=== PATIENT | female | born 1945 | race Caucasian/White ===

== ENCOUNTER → 2018-06-21 | Outpatient (CLI) | payer MEDICARE ==
--- NOTE | 2018-06-23 17:45 | PE ---
Nuclear medicine PET/CT HISTORY: Melanoma, initial Patient received 13.1 mCi F-18 FDG intravenously in delayed scanning was performed through the whole body. No comparisons Neck and Chest: There is no suspicious hypermetabolic uptake. No evident adenopathy. No evident lung mass. No pleural or pericardial effusion. ABDOMEN: No evident liver mass or retroperitoneal adenopathy. Prominent extrarenal pelvis noted in th e right kidney, there may be UPJ obstruction. No suspicious hypermetabolic uptake. Uterus and adnexal structures are not seen. Osseous structures are are unremarkable, no suspicious hypermetabolic uptake. Sclerotic focus in the left sacral ala likely represents bone island. Hypertrophic change present at the sacroiliac joints, facet joints of the lower lumbar spine. Lower extremities are remarkable for knee prostheses, no suspicious hypermetabolic uptake to suggest metastatic disease. IMPRESSION: No suspicious hypermetabolic uptake is evident to suggest metastatic disease. Postop west ges.
== END | disposition home or self-care (01) ==
LOC: RADPETMAIN 10:54
PROVIDERS: ATTEND Nurse Practitioner
DX: C43.59 Malignant melanoma of other part of trunk (principal); Z98.890 Other specified postprocedural states
CPT/HCPCS: 78816; A9552

== ENCOUNTER → 2018-11-14 | Outpatient (CLI) | payer MEDICARE ==
--- NOTE | 2018-11-17 16:19 | PE ---
EXAMINATION TYPE: PET CT fusion whole body DATE OF EXAM: 11/14/2018 COMPARISON: Prior PET/CT June 21, 2018 HISTORY: Melanoma with masses removed from arms and back, 4 prior surgeries most recent November 03, 2018 . TECHNIQUE: Following the intravenous administration of 15.2 x 4 mCi of F-18 FDG, whole body images a re performed from the top of skull to the bottom of feet. Images are reviewed on the computer in the coronal, axial, and sagittal planes. Reconstructed rotating images are created on [employer] and reviewed on the computer. A noncontrast CT is performed in conjunction with the PET scan . PET/CT imaging of bilateral lower extremities also performed. SCAN: Subsequent Scan FINDINGS: HEAD AND NECK: No suspicious hypermetabolic uptake or masses in the scalp. No suspicious hypermetabo lic masses or adenopathy in the neck. CHEST, MEDIASTINUM, AND HILAR REGION: In the posterior subcutaneous fat lateral to the right scapula tip there is new 9 mm hypermetabolic nodule axial image 120, max SUV is 3.71. There is additional new suspicious soft tissue nodule posterior right upper thorax axial image 90 measuring 11 x 6 mm that i s ametabolic. ABDOMEN AND PELVIS: Normal excretion and collecting systems and bladder is present. No suspicious new hypermetabolic adenopathy or soft tissue nodules are identified. OSSEOUS STRUCTURES: No new areas of abnormal hypermetabolic uptake. LOWER EXTREMITIES: Metallic artifact bilateral knee arthroplasty is redemonstrated with areas of asym metric metallic uptake surrounding left knee prosthesis similar to prior. There is linear uptake invo lving anterior lateral left leg muscle on current study presumed postinflammatory. No suspicious hype rmetabolic subcutaneous nodules are identified. OTHER CT: Mild cardiomegaly with coronary artery calcification is redemonstrated. There is new right internal jugular Mediport catheter terminating in SVC. There is suspected 1.1 cm rim calcified splenic artery aneurysm axial image 149 redemonstrated. Small hiatal hernia is again seen. Mild/moderate calcified plaque of aorta extends into branch vessels. There is persistent moderate charles localiectasis without hydroureter suggesting right UPJ stricture or stenosis. Scattered left-sided pe lvic phleboliths are redemonstrated. Uterus is surgically absent or markedly atrophic. There is multilevel spurring in the spine. There is facet arthropathy in lower lumbar levels. IMPRESSION: Single new hypermetabolic lesion identified lateral aspect right mid thorax. Also suspici ous ametabolic new subcutaneous lesion posterior right upper thorax.
== END ==
LOC: RADPETMAIN 16:08
PROVIDERS: ATTEND Internal Medicine Hematology & Oncology
DX: C43.59 Malignant melanoma of other part of trunk (principal)
CPT/HCPCS: 78816; A9552

== ENCOUNTER → 2019-03-21 | Outpatient (CLI) | payer MEDICARE ==
--- NOTE | 2019-03-23 16:44 | PE ---
Nuclear medicine PET/CT HISTORY: Malignant melanoma of other part trauma, C 43.59, subsequent Patient received 10 mCi F-18 FDG intravenously and delayed whole-body scanning was performed. Correlation to prior PET/CT 11/14/2018 Head and neck: Unremarkable, stable, no evident adenopathy. CHEST: The Port-A-Cath in the right pectoral region shows a loop in the internal jugular vein, distal tip is likely near the confluence with the subclavian vein. There is a soft tissue mass within the s ubcutaneous soft tissues at the level of the third posterior rib measuring approximately 25 mm and th ere is associated hypermetabolic uptake, SUV is 6.8. This has progressed in size and activity in the interval compared to prior exam. The lesion lateral to the scapular tip as noted on prior exam is not ed as on prior exam and is somewhat less well-defined, may be increased in size slightly measuring ap proximately 1.8 cm as compared to prior when it measured 9 mm, SUV is 3.1. There is an additional foc us immediately adjacent extends towards the skin of the back without definite associated hypermetabol ic uptake. There is a lung nodule within the lingula measuring approximately 1 cm in AP dimension, pr evious exam lesion measured only 4 mm at this level. There is an additional lung nodule present in th e right lung on axial image #116 measuring approximately 9 mm, no associated hypermetabolic uptake. L eft upper lobe lung nodule measuring 1 cm shows no associated hypermetabolic uptake and was not seen on prior exam. Similarly, left upper lobe lung nodule on axial image 107 measures 13 mm and was not s een on previous as well as a pleural-based nodule on axial image 111, new left upper lobe lung nodule axial image 85 measures 6 mm at the apex, right upper lobe nodule medially measures 6 mm on axial an d 97, additional subpleural nodule at the level of the mediastinum is new and measures 7 to 8 mm. Rig ht lower lobe nodule axial image 109 is subcentimeter in size,, right lower lobe nodule on axial imag e 124 measures 9 mm, there may be additional smaller nodules lung nodules do not show hypermetabolic uptake. There is some uptake associated with the patient's thyroid gland on the left similar to prior exam, S UV is. ABDOMEN: There is a focus of decreased uptake present within the posterior spleen with some periphera l hypermetabolic uptake which was not seen on prior exam. Lesion measures approximately 4.3 cm in siz e, SUV 3.5. Questionable focus of liver uptake inferiorly adjacent to the gallbladder on axial image 168, SUV 3.4. Lower extremities are stable in appearance. Osseous structures are stable, no suspicious hypermetabolic uptake. IMPRESSION: Progression of patient's metastatic disease is suspected. Indeterminate abnormal focus wi thin the spleen as described. Additional findings above.
== END | disposition home or self-care (01) ==
LOC: RADPETMAIN 12:27
PROVIDERS: ATTEND Internal Medicine Hematology & Oncology
DX: C43.59 Malignant melanoma of other part of trunk (principal)
CPT/HCPCS: 78816; A9552

== ENCOUNTER 2019-06-08 17:39 | Inpatient (IN) | payer MEDICARE ==
--- NOTE | 2019-06-08 16:18 | US ---
EXAMINATION TYPE: US venous doppler duplex LE LT DATE OF EXAM: 06/08/2019 4:10 PM COMPARISON: NONE CLINICAL HISTORY: 74-year-old female R06.02 SOB; C43.59 Melanoma R22.42 swelling. SOB. Leg swelling . Patient states starting a new chemo drug that can cause blood clots. SIDE PERFORMED: Left TECHNIQUE: The lower extremity deep venous system is examined utilizing real time linear array sonog zaki with graded compression, doppler sonography and color-flow sonography. FINDINGS: VESSELS IMAGED: External Iliac Vein (EIV) Common Femoral Vein Deep Femoral Vein Greater Saphenous Vein * Femoral Vein Popliteal Vein Small Saphenous Vein * Proximal Calf Veins (* superficial vessels) Left Leg: Appears POSITIVE for DVT from Popliteal vein to Proximal calf veins. No vascular flow. V isible internal echoes. IMPRESSION: Exam positive for left lower extremity DVT at the level of the knee and proximal calf. The elevator pilot spoke to Fifi at the physician's office at the end of the exam.
--- NOTE | 2019-06-08 17:27 | CT ---
"EXAMINATION TYPE: CT angio chest DATE OF EXAM: 06/08/2019 5:10 PM COMPARISON: 03/21/2019 HISTORY: Shortness of breath. CT DLP: 514 mGy Automated exposure control for dose reduction was used. CONTRAST: CTA scan of the thorax is performed with IV Contrast, patient injected with 100 mL of Isovue 370, pul monary embolism protocol. . FINDINGS: LUNGS: There are numerous pulmonary nodules within the lungs noted bilaterally. Estimated 30-40 nodul es. There appear to be increased in number relative to the previous PET/CT of 03/21/2019. The largest in the left upper lobe measures 1.5 x 1.2 cm and previously measured 1 x 0.8 cm. Within the right upp er lobe the largest measures 1.4 cm and previously measured 0.8 cm. Nodule is seen increasing both in number and size involving virtually all lobes. Bilateral consolidation is seen with small effusion. Groundglass changes are seen within the lungs bi laterally correlate for pneumonitis. MEDIASTINUM: There is satisfactory enhancement of the pulmonary artery and its branches, there is no CT evidence for pulmonary embolism. There are no greater than 1 cm hilar or mediastinal lymph nodes. No pericardial effusion is seen. OTHER: There is a large subcutaneous nodule involving the chest in the posterior soft tissues previo usly measured 1.6 cm and now measures 2.5 cm. Additional soft tissue nodules are seen in the subcutan eous tissues particularly on the right as well as on the left on axial image 52 in the subcutaneous t issues of the left upper extremity Enlarged with multiple masses the largest measuring 5.8 cm. This previously measured 4.1 cm. There is interval marked enlargement of the adrenal gland on the left now measuring 4.9 cm compatible with me tastases. Hypertrophic and degenerative changes of the vertebral column. Mediport catheter seen. There is a sma ll 1 cm hypodensity within the posterior margin of the right lobe of the liver axial image 145 suspic ious for metastatic lesion. Additional 5 mm hypodensity in the left lobe of the liver on axial image 127 2 small to characterize. There is a left thyroid nodule measuring 2.3 cm which is retrospectively stable. IMPRESSION: 1. There is interval development of a bilateral consolidation and tiny left effusion with subtle grou ndglass changes seen bilaterally. Correlate for alveolitis or pneumonitis. 2. No diagnostic evidence of pulmonary embolism. 3. There is marked interval progression in the size and number of pulmonary nodules noted diffusely a nd within bilateral lung scales as measured above. 4. Splenomegaly with increase in size of the largest splenic lesion measuring 5.8 cm compatible with worsening metastatic disease. 5. Subcutaneous and hepatic metastases. 6 worsening left adrenal metastases as measured above A [place] level critical message alert has been initiated for Adi Pérez MD via the [employer] 36 0 | Critical Results System on 06/08/2019 5:24 PM. This message alert has been sent to Adi Pérez MD via the preferences provided by the clinician for the receipt of Radiology Critical Findings. [facility] ID [id number]."
[2019-06-08] MEDS ORDERED: HEPARIN SODIUM,PORCINE 5,000 UNIT/ML 1 ML VIAL IV PRN (18:44)
[2019-06-08] MEDS ORDERED: HEPARIN SODIUM,PORCINE 10,000 UNIT/ML 1 ML VIAL IV ONE (18:44)
[2019-06-08] MEDS ORDERED: HEPARIN SOD,PORK IN 0.45% NACL 25,000 UNIT in 0.45% NACL 1 250ML.BAG IV SCH (18:45)
--- NOTE | 2019-06-08 18:46 | ED ---
SOB HPI - General Chief Complaint: Shortness of Breath Stated Complaint: blood clot Time Seen by Provider: 06/08/19 17:56 Source: patient Mode of arrival: wheelchair Limitations: no limitations - History of Present Illness Initial Comments: The patient is a 74-year-old female with past history of metastatic melanoma who presents to the emergency department with reported shortness of breath. She states it's been going on for the past 6 days. Reports to mild sputum production and low-grade fevers. She did see Dr. Morocho's [employer] Tia in office today at 1:30 pm. She did send the patient for a lower extremity Doppler and a CT of her chest. Patient had imaging performed and was called with results. She was told to proceed immediately to the emergency room. She was told that she does have a lower extremity DVT. No history of similar in the past. Denies calf pain or swelling. Does admit to chest palpitations. She is not currently on anticoagulation. She is on oral chemotherapy daily at home. Denies any chest pain. No history of cardiac disease. Denies any headaches or visual changes. No known metastatic disease to the brain. No ripping or tearing sensation to her back. Does admit to chronic nausea and some vomiting. Denies any changes in her bowel or bladder habits. No history of life-threatening bleed. There are no other alleviating, precipitating or modifying factors - Related Data Home Medications Medication Instructions Recorded Confirmed Meloxicam [Mobic] 7.5 mg PO BID 06/08/19 06/08/19 Nortriptyline [Pamelor] 10 mg PO HS 06/08/19 06/08/19 Nystatin-Triamcinolone Oint 1 applic TOPICAL BID PRN 06/08/19 06/08/19 [Mycolog 100,000-0.1 Unit/gm-% Oint] Omeprazole 20 mg PO DAILY 06/08/19 06/08/19 Prochlorperazine [Compazine] 10 mg PO Q6H PRN 06/08/19 06/08/19 Sertraline [Zoloft] 100 mg PO BID 06/08/19 06/08/19 Tafinlar 75mg Capsule 150 mg PO Q12H 06/08/19 06/08/19 Trametinib Dimethyl Sulfoxide 2 mg PO DAILY 06/08/19 06/08/19 [Mekinist] amLODIPine BESYLATE [Norvasc] 2.5 mg PO DAILY 06/08/19 06/08/19 Previous Rx's Medication Instructions Recorded Enoxaparin [Lovenox] 75 mg SQ Q12H 30 Days #60 syringe 06/11/19 HYDROcodone/APAP 5-325MG [[place] 1 each PO Q4HR PRN 3 Days #12 tab 06/11/19 5-325] Sennosides [Senokot] 8.6 mg PO BID 30 Days #60 tab 06/11/19 predniSONE 40 mg PO DIRECTED 15 Days #30 06/11/19 tab Allergies Allergy/AdvReac Type Severity Reaction Status Date / Time ciprofloxacin [From Cipro] Allergy Hallucinati Verified 06/08/19 20:32 ons Penicillins Allergy Unknown Verified 06/08/19 20:32 Childhood Review of Systems ROS Statement: Those systems with pertinent positive or pertinent negative responses have been documented in the HPI. ROS Other: All systems not noted in ROS Statement are negative. Past Medical History Past Medical History: Cancer, Hyperlipidemia, Hypertension, Pneumonia History of Any Multi-Drug Resistant Organisms: None Reported Past Surgical History: Bladder Surgery, Hernia Repair, Hysterectomy, Orthopedic Surgery Additional Past Surgical History / Comment(s): tumor removal ight breast Past Psychological History: No Psychological Hx Reported Smoking Status: Never smoker Past Alcohol Use History: None Reported Past Drug Use History: None Reported General Exam Limitations: no limitations General appearance: alert, in no apparent distress Head exam: Present: atraumatic, normocephalic Eye exam: Present: PERRL, EOMI Pupils: Present: normal accommodation ENT exam: Present: normal exam, normal oropharynx Neck exam: Absent: tenderness, meningismus Respiratory exam: Present: accessory muscle use, other (Conversational dyspnea, tachypnea). Absent: wheezes, rales, rhonchi, stridor Cardiovascular Exam: Present: normal rhythm, tachycardia GI/Abdominal exam: Present: soft. Absent: distended, tenderness, guarding, rebound, rigid Extremities exam: Present: normal capillary refill, pedal edema, calf tenderness Neurological exam: Present: alert, oriented X3 Psychiatric exam: Present: normal affect, normal mood Skin exam: Present: warm, dry, intact Course Vital Signs 06/08/19 06/08/19 06/08/19 17:50 19:15 19:20 Temperature 98.1 F Pulse Rate 102 H 101 H 105 H Pulse Rate [ Pulse Oximetery ] Respiratory 19 16 14 Rate Blood Pressure 145/93 Blood Pressure [Right Arm] O2 Sat by Pulse 96 99 Oximetry 06/08/19 06/08/19 06/08/19 19:23 19:30 20:00 Temperature Pulse Rate 100 109 H Pulse Rate [ Pulse Oximetery ] Respiratory 18 23 30 H Rate Blood Pressure 118/84 131/93 Blood Pressure [Right Arm] O2 Sat by Pulse 95 92 L Oximetry 06/08/19 21:30 Temperature 97.8 F Pulse Rate Pulse Rate [ 104 H Pulse Oximetery ] Respiratory 18 Rate Blood Pressure Blood Pressure 141/87 [Right Arm] O2 Sat by Pulse 97 Oximetry Medical Decision Making - Medical Decision Making Upon arrival the patient was placed into room 5. A thorough history and physical exam was performed. I did perform a 12-lead EKG which demonstrated a sinus tachycardia. I reviewed the patient's imaging reports. Venous Doppler demonstrates positive DVT in the left leg from the popliteal vein to proximal calf veins. CTA of the chest demonstrates interval development of bilateral consolidations and tiny left effusion with subtle groundglass changes. No diagn ostic evidence of pulmonary embolism. Marked interval progression in the size number of pulmonary nodules noted diffusely within bilateral lung scales. Splenomegaly with increase in size of largest lesion measuring 5.8 cm. Subcutaneous and hepatic metastasis. I did recommend laboratory studies. White blood cell count is 14.9. Hemoglobin 15.8. Platelets 103. PTT is originally measured at 84.3. Repeat is 23.8. Blood work was drawn off of the patient's port. INR is 1. Elevation in her AST of 275, ALT 133. Troponin is negative. Influenza A and B are negative I called and discussed this with the patient's oncologist, Dr. Morocho. He requested that the patient be heparinized. She does not have any contraindications therefore do order a heparin bolus and drip. He instructed me to hold off on the patient's oral chemotherapy. He wants the patient placed on IV steroids and covered with IV antibiotics. He is given 125 mg of Solu-Medrol, 1 g of Rocephin and [address] Morocho refused hospital admission and requested to be placed on consult. I called and discussed this with Dr. Krishnan who accepted admission. Bridging orders were placed and the patient went to the floor in stable condition - Lab Data Result diagrams: 06/11/19 05:30 06/09/19 05:34 Lab Results 06/08/19 06/08/19 06/08/19 Range/Units 18:09 18:09 18:09 WBC 14.9 H (3.8-10.6) k/uL RBC 5.56 H (3.80-5.40) m/uL Hgb 15.8 (11.4-16.0) gm/dL Hct 48.5 H (34.0-46.0) % MCV 87.2 (80.0-100.0) fL MCH 28.4 (25.0-35.0) pg MCHC 32.6 (31.0-37.0) g/dL RDW 13.5 (11.5-15.5) % Plt Count 103 L (150-450) k/uL Neutrophils % 56 % Lymphocytes % 38 % Monocytes % 4 % Eosinophils % 0 % Basophils % 0 % Neutrophils # 8.4 H (1.3-7.7) k/uL Lymphocytes # 5.6 H (1.0-4.8) k/uL Monocytes # 0.7 (0-1.0) k/uL Eosinophils # 0.0 (0-0.7) k/uL Basophils # 0.0 (0-0.2) k/uL PT (9.0-12.0) sec INR (<1.2) APTT (22.0-30.0) sec Sodium 136 L (137-145) mmol/L Potassium 4.6 (3.5-5.1) mmol/L Chloride 105 (98-107) mmol/L Carbon Dioxide 22 (22-30) mmol/L Anion Gap 9 mmol/L BUN 37 H (7-17) mg/dL Creatinine 0.68 (0.52-1.04) mg/dL Est GFR (CKD-EPI)AfAm >90 (>60 ml/min/1.73 sqM) Est GFR (CKD-EPI)NonAf 88 (>60 ml/min/1.73 sqM) Glucose 102 H (74-99) mg/dL Calcium 8.8 (8.4-10.2) mg/dL Total Bilirubin 0.8 (0.2-1.3) mg/dL AST 275 H (14-36) U/L ALT 133 H (9-52) U/L Alkaline Phosphatase 162 H (38-126) U/L Troponin I (0.000-0.034) ng/mL NT-Pro-B Natriuret Pep 139 pg/mL Total Protein 6.6 (6.3-8.2) g/dL Albumin 3.4 L (3.5-5.0) g/dL Influenza Type A RNA (Not Detectd) Influenza Type B (PCR) (Not Detectd) 06/08/19 06/08/19 06/08/19 Range/Units 18:09 18:09 19:45 WBC (3.8-10.6) k/uL RBC (3.80-5.40) m/uL Hgb (11.4-16.0) gm/dL Hct (34.0-46.0) % MCV (80.0-100.0) fL MCH (25.0-35.0) pg MCHC (31.0-37.0) g/dL RDW (11.5-15.5) % Plt Count (150-450) k/uL Neutrophils % % Lymphocytes % % Monocytes % % Eosinophils % % Basophils % % Neutrophils # (1.3-7.7) k/uL Lymphocytes # (1.0-4.8) k/uL Monocytes # (0-1.0) k/uL Eosinophils # (0-0.7) k/uL Basophils # (0-0.2) k/uL PT 11.1 (9.0-12.0) sec INR 1.0 (<1.2) APTT 84.3 H (22.0-30.0) sec Sodium (137-145) mmol/L Potassium (3.5-5.1) mmol/L Chloride (98-107) mmol/L Carbon Dioxide (22-30) mmol/L Anion Gap mmol/L BUN (7-17) mg/dL Creatinine (0.52-1.04) mg/dL Est GFR (CKD-EPI)AfAm (>60 ml/min/1.73 sqM) Est GFR (CKD-EPI)NonAf (>60 ml/min/1.73 sqM) Glucose (74-99) mg/dL Calcium (8.4-10.2) mg/dL Total Bilirubin (0.2-1.3) mg/dL AST (14-36) U/L ALT (9-52) U/L Alkaline Phosphatase (38-126) U/L Troponin I <0.012 (0.000-0.034) ng/mL NT-Pro-B Natriuret Pep pg/mL Total Protein (6.3-8.2) g/dL Albumin (3.5-5.0) g/dL Influenza Type A RNA Not Detected (Not Detectd) Influenza Type B (PCR) Not Detected (Not Detectd) 06/08/19 Range/Units 19:45 WBC (3.8-10.6) k/uL RBC (3.80-5.40) m/uL Hgb (11.4-16.0) gm/dL Hct (34.0-46.0) % MCV (80.0-100.0) fL MCH (25.0-35.0) pg MCHC (31.0-37.0) g/dL RDW (11.5-15.5) % Plt Count (150-450) k/uL Neutrophils % % Lymphocytes % % Monocytes % % Eosinophils % % Basophils % % Neutrophils # (1.3-7.7) k/uL Lymphocytes # (1.0-4.8) k/uL Monocytes # (0-1.0) k/uL Eosinophils # (0-0.7) k/uL Basophils # (0-0.2) k/uL PT (9.0-12.0) sec INR (<1.2) APTT 23.8 (22.0-30.0) sec Sodium (137-145) mmol/L Potassium (3.5-5.1) mmol/L Chloride (98-107) mmol/L Carbon Dioxide (22-30) mmol/L Anion Gap mmol/L BUN (7-17) mg/dL Creatinine (0.52-1.04) mg/dL Est GFR (CKD-EPI)AfAm (>60 ml/min/1.73 sqM) Est GFR (CKD-EPI)NonAf (>60 ml/min/1.73 sqM) Glucose (74-99) mg/dL Calcium (8.4-10.2) mg/dL Total Bilirubin (0.2-1.3) mg/dL AST (14-36) U/L ALT (9-52) U/L Alkaline Phosphatase (38-126) U/L Troponin I (0.000-0.034) ng/mL NT-Pro-B Natriuret Pep pg/mL Total Protein (6.3-8.2) g/dL Albumin (3.5-5.0) g/dL Influenza Type A RNA (Not Detectd) Influenza Type B (PCR) (Not Detectd) - EKG Data EKG Comments: EKG demonstrates a sinus tachycardia with a ventricular rate of 105. WA interval 152. QRS 82. QTC 438. No acute ST segment elevations or depressions concerning for ischemic changes. There is Q-wave in lead 3. Critical Care Time Critical Care Time: Yes Total Critical Care Time: 35 (mins) Critical Care Time: Critical care time for heparin infusion for acute DVT Disposition Clinical Impression: Acute DVT (deep venous thrombosis), Metastatic melanoma, Respiratory insufficiency Disposition: ADMITTED IP TO THIS HOSP Condition: Stable Is patient prescribed a controlled substance at d/c from ED?: No Decision to Admit Reason: Admit from EC Decision Date: 06/08/19 Decision Time: 20:04
[2019-06-08] MEDS ORDERED: methylPREDNISolone SOD SUCCI 125 MG/2 ML VIAL IV STA (19:02)
[2019-06-08] MEDS ORDERED: IPRATROPIUM-ALBUTEROL 3 ML NEB INHALATION STA (19:02)
[2019-06-08 19:04] LABS: Basophils % (A) 0 %; Eosinophils % (A) 0 %; HCT 48.5 % (34.0-46.0); HGB 15.8 gm/dL (11.4-16.0); Lymphocytes % (A) 38 %; MCH 28.4 pg (25.0-35.0); MCHC 32.6 g/dL (31.0-37.0); MCV 87.2 fL (80.0-100.0); Mean Platelet Volume 6.7; Monocytes # (A) 0.7 k/uL (0-1.0); Monocytes % (A) 4 %; Neutrophils # (A) 8.4 k/uL (1.3-7.7); Neutrophils % (A) 56 %; Platelet Count 103 k/uL (150-450); RBC 5.56 m/uL (3.80-5.40); RDW 13.5 % (11.5-15.5); WBC 14.9 k/uL (3.8-10.6)
[2019-06-08 19:05] LABS: Lymphocytes # (A) 5.6 k/uL (1.0-4.8)
[2019-06-08 19:11] LABS: Prothrombin Time 11.1 sec (9.0-12.0)
[2019-06-08 19:22] LABS: Partial Thromboplastin Time 84.3 sec (22.0-30.0)
[2019-06-08 19:31] LABS: ALT 133 U/L (9-52); AST 275 U/L (14-36); African American GFR (CKD) >90 (>60 ml/min/1.73 sqM); Albumin 3.4 g/dL (3.5-5.0); Alkaline Phosphatase 162 U/L (38-126); Anion Gap 9 mmol/L; Blood Urea Nitrogen 37 mg/dL (7-17); Calcium 8.8 mg/dL (8.4-10.2); Carbon Dioxide 22 mmol/L (22-30); Chloride 105 mmol/L (98-107); Glucose 102 mg/dL (74-99); Potassium 4.6 mmol/L (3.5-5.1); Sodium 136 mmol/L (137-145); Total Bilirubin 0.8 mg/dL (0.2-1.3); Total Protein 6.6 g/dL (6.3-8.2)
[2019-06-08] MEDS ORDERED: cefTRIAXone IN SWFI 1,000 MG/10 ML SYRINGE IVP STA (19:57)
[2019-06-08] MEDS ORDERED: AZITHROMYCIN 500 MG in SODIUM CHLORIDE 0.9% 250 ML IVPB STA (19:57)
[2019-06-08] MEDS ORDERED: NALOXONE 0.4 MG/ML 1 ML VIAL IV PRN (20:04)
[2019-06-08] MEDS ORDERED: ONDANSETRON 4 MG/2 ML VIAL IVP STA (22:25)
--- NOTE | 2019-06-08 22:27 | P.HPIM ---
History of Present Illness H&P Date: 06/08/19 Patient is a 74-year-old female with a PMH of metastatic melanoma diagnosed ~18 months ago s/p Opdivo for 11 months, currently on Mekinist and Tefinlar for the past 7 days, sent to the ED form Dr Morocho's office for SOB. The patient had presented to his office earlier today for her routine appointment where Tia noted that the patient appeared more SOB. Patient endorsed to her that she has been getting tired and short of breath quickly since she began her new chemotherapy regimen. There was also concerns regarding the swelling and warmth of her LLE and the patient was subsequently sent to the ED. Upon arrival, the patient's vital signs were P 102, BP 145/93, T 98.1, and SpO2 96% on RA. The p atient reported that along with the decreased exercise tolerance with shortness of breath, she has also had a persistent non-productive cough for the past few weeks to months. She also reports a single episode of fever at home w/ Tmax 101, two days ago. She also notes occasional nausea with dry heaving. The patient reports no changes in her legs and states that since her knee surgeries, she has always had some LE swelling and hadn't noticed anything unusual. She denied leg pain, recent travel. She also denied chest pain, dizziness, palpitations. She denied vomiting, diarrhea, or abdominal pain. She underwent an extensive evaluation in the ED w/ venous doppler of the LLE positive for DVT from popliteal vein to the proximal calf veins. Chest CTA revealed extensive progressive metastatic disease involving the lungs, spleen, and liver without any evidence of PE. EKG revealed sinus tachycardia @ 105 bpm w/ TWI and q-wave in lead III. Laboratory evaluation revealed WBC count of 14.9, platelets of 103, AST 275, ALT 133, alk phos 162, sodium 136, potassium 4.6, BUN 37, and creatinine 0.68. Patient was admitted for further management. Review of Systems Pertinent positives and negatives as discussed in HPI, a complete review of systems was performed and all other systems are negative. Past Medical History Past Medical History: Cancer, Hyperlipidemia, Hypertension, Pneumonia History of Any Multi-Drug Resistant Organisms: None Reported Past Surgical History: Bladder Surgery, Hernia Repair, Hysterectomy, Orthopedic Surgery Additional Past Surgical History / Comment(s): tumor removal ight breast Past Psychological History: No Psychological Hx Reported Smoking Status: Never smoker Past Alcohol Use History: None Reported Past Drug Use History: None Reported Medications and Allergies Home Medications Medication Instructions Recorded Confirmed Type Meloxicam [Mobic] 7.5 mg PO BID 06/08/19 06/08/19 History Nortriptyline [Pamelor] 10 mg PO DAILY 06/08/19 06/08/19 History Nystatin-Triamcinolone Oint 1 applic TOPICAL BID PRN 06/08/19 06/08/19 History [Mycolog 100,000-0.1 Unit/gm-% Oint] Omeprazole 20 mg PO DAILY 06/08/19 06/08/19 History Prochlorperazine [Compazine] 10 mg PO Q6H PRN 06/08/19 06/08/19 History Sertraline [Zoloft] 100 mg PO BID 06/08/19 06/08/19 History Tafinlar 75mg Capsule 150 mg PO Q12H 06/08/19 06/08/19 History Trametinib Dimethyl Sulfoxide 2 mg PO DAILY 06/08/19 06/08/19 History [Mekinist] amLODIPine BESYLATE [Norvasc] 2.5 mg PO DAILY 06/08/19 06/08/19 History Allergies Allergy/AdvReac Type Severity Reaction Status Date / Time ciprofloxacin [From Cipro] Allergy Hallucinati Verified 06/08/19 20:32 ons Penicillins Allergy Unknown Verified 06/08/19 20:32 Childhood Physical Exam Vitals: Vital Signs Temp Pulse Resp BP Pulse Ox 06/08/19 20:00 30 H 131/93 92 L 06/08/19 19:30 109 H 23 118/84 95 06/08/19 19:23 100 18 06/08/19 19:20 105 H 14 99 06/08/19 19:15 101 H 16 06/08/19 17:50 98.1 F 102 H 19 145/93 96 Intake and Output 06/08/19 06/08/19 06/08/19 06:59 14:59 22:59 Other: Weight 75.296 kg General: non toxic, no distress, appears at stated age Derm: no unusual rashes/lesions no unusual ecchymoses, warm, dry Head: atraumatic, normocephalic, symmetric Eyes: EOMI, no lid lag, anicteric sclera, pupils equal round reactive to light ENT: Nose and ears atraumatic, no thrush, no pharyngeal erythema Neck: No thyromegaly, no cervical lymphadenopathy, trachea midline, supple Mouth: no lip lesion, mucus membranes moist Cardiovascular: S1S2 reg, tachycardic, no murmur, positive posterior tibial pulse bilateral, capillary refill less than 2 seconds Lungs: CTA bilateral, no rhonchi, no rales , no accessory muscle use Abdominal: soft, nontender to palpation, no guarding, no appreciable organomegaly, normal bowel sounds Ext: Left lower extremity mild swelling and warmth, no gross muscle atrophy, muscle strength 5 out of 5 in all 4 extremities grossly, no contractures Neuro: CN II-XI grossly intact, light touch intact all 4 extremities, finger to nose within normal limits, Psych: Alert, oriented, appropriate affect Results CBC & Chem 7: 06/08/19 18:09 06/08/19 18:09 Labs: Abnormal Lab Results - Last 24 Hours (Table) 06/08/19 06/08/19 06/08/19 Range/Units 18:09 18:09 18:09 WBC 14.9 H (3.8-10.6) k/uL RBC 5.56 H (3.80-5.40) m/uL Hct 48.5 H (34.0-46.0) % Plt Count 103 L (150-450) k/uL Neutrophils # 8.4 H (1.3-7.7) k/uL Lymphocytes # 5.6 H (1.0-4.8) k/uL APTT 84.3 H (22.0-30.0) sec Sodium 136 L (137-145) mmol/L BUN 37 H (7-17) mg/dL Glucose 102 H (74-99) mg/dL AST 275 H (14-36) U/L ALT 133 H (9-52) U/L Alkaline Phosphatase 162 H (38-126) U/L Albumin 3.4 L (3.5-5.0) g/dL Assessment and Plan Plan: Acute LLE DVT in setting of malignancy -Start patient on Lovenox -Heme/Onc consulted -Monitor CBC Shortness of breath, possibly due to extensive metastatic melanoma disease burden -Dr Morocho consulted -Monitor for now -Supplemental oxygen -Echocardiogram ordered Thrombocytopenia -Likely due to chemotherapy -Monitor for now Leukocytosis -Likely due to underlying malignancy -Monitor for signs of infection Abnormal LFTs -Possibly secondary to metastatic disease of the liver -Monitor for now Chronic conditions: HTN, HLD -C/w home meds DVT prophylaxis -Lovenox The patient is admitted with an anticipated greater than 2 midnight stay for evaluation of acute DVT CODE STATUS: Full Code Discussed with: Patient Anticipated discharge date: 2-[address]: Home A total of 40 minutes was spent on the care of this complex patient more than 50% of the time was spent in counseling and care coordination.
[2019-06-08] MEDS: MELATONIN 5 MG TABLET PO SCH (22:44)
[2019-06-08] MEDS: ENOXAPARIN 80 MG/0.8 ML SYRINGE SQ SCH (22:45)
[2019-06-09] MEDS: PANTOPRAZOLE 40 MG TABLET PO SCH (06:15)
[2019-06-09 06:31] LABS: Basophils % (A) 0 %; Eosinophils % (A) 0 %; HCT 44.5 % (34.0-46.0); HGB 14.4 gm/dL (11.4-16.0); Lymphocytes # (A) 4.5 k/uL (1.0-4.8); Lymphocytes % (A) 43 %; MCH 28.2 pg (25.0-35.0); MCHC 32.4 g/dL (31.0-37.0); MCV 87.1 fL (80.0-100.0); Mean Platelet Volume 6.8; Monocytes # (A) 0.4 k/uL (0-1.0); Monocytes % (A) 3 %; Neutrophils # (A) 5.4 k/uL (1.3-7.7); Neutrophils % (A) 52 %; Platelet Count 107 k/uL (150-450); RBC 5.11 m/uL (3.80-5.40); RDW 13.4 % (11.5-15.5); WBC 10.4 k/uL (3.8-10.6)
[2019-06-09] MEDS: PROCHLORPERAZINE 10 MG TAB PO PRN ×2 (06:38→22:31)
[2019-06-09 06:56] LABS: ALT 130 U/L (9-52); AST 228 U/L (14-36); African American GFR (CKD) >90 (>60 ml/min/1.73 sqM); Alkaline Phosphatase 119 U/L (38-126); Anion Gap 8 mmol/L; Blood Urea Nitrogen 34 mg/dL (7-17); Calcium 8.5 mg/dL (8.4-10.2); Carbon Dioxide 24 mmol/L (22-30); Chloride 104 mmol/L (98-107); Glucose 128 mg/dL (74-99); Potassium 5.1 mmol/L (3.5-5.1); Sodium 136 mmol/L (137-145); Total Bilirubin 0.6 mg/dL (0.2-1.3); Total Protein 5.9 g/dL (6.3-8.2)
[2019-06-09] MEDS: SERTRALINE 100 MG TAB PO SCH ×2 (08:19→22:22)
[2019-06-09] MEDS: amLODIPine 2.5 MG TAB PO SCH (08:19)
--- NOTE | 2019-06-09 08:29 | ECHOF ---
Referral Reason:C43.59,Z01.818 MEASUREMENTS -------- HEIGHT: 157.5 cm WEIGHT: 75.3 kg BP: 138/86 RVIDd: 3.1 cm (< 3.3) IVSd: 1.4 cm (0.6 - 1.1) LVIDd: 3.7 cm (3.9 - 5.3) LVPWd: 1.2 cm (0.6 - 1.1) IVSs: 1.6 cm LVIDs: 2.7 cm LVPWs: 1.4 cm LA Diam: 2.4 cm (2.7 - 3.8) Ao Diam: 3.5 cm (2.0 - 3.7) AV Cusp: 1.9 cm (1.5 - 2.6) MV E Leopoldo: 0.46 m/s MV DecT: 285 ms MV A Leopoldo: 0.85 m/s MV E/A Ratio: 0.55 TAPSE: 22.47 mm FINDINGS -------- Sinus rhythm. This was a technically adequate study. The left ventricular size is normal. There is moderate concentric left ventricular hypertrophy. O verall left ventricular systolic function is normal with, an EF between 60 - 65 %. The right ventricle is normal in size. The left atrial size is normal. The right atrium is normal in size. Interatrial and interventricular septum intact. The aortic valve is trileaflet and appears structurally normal. The mitral valve is normal. The tricuspid valve appears structurally normal. There is no pulmonic regurgitation present. The aortic root size is normal. Normal inferior vena cava with normal inspiratory collapse consistent with estimated right atrial pre ssure of 5 mmHg. There is no pericardial effusion. CONCLUSIONS -------- 1. Sinus rhythm. 2. This was a technically adequate study. 3. The left ventricular size is normal. 4. There is moderate concentric left ventricular hypertrophy. 5. Overall left ventricular systolic function is normal with, an EF between 60 - 65 %. 6. The right ventricle is normal in size. 7. The left atrial size is normal. 8. The right atrium is normal in size. 9. Interatrial and interventricular septum intact. 10. The aortic valve is trileaflet and appears structurally normal. 11. The mitral valve is normal. 12. The tricuspid valve appears structurally normal. 13. There is no pulmonic regurgitation present. 14. The aortic root size is normal. 15. Normal inferior vena cava with normal inspiratory collapse consistent with estimated right atrial pressure of 5 mmHg. 16. There is no pericardial effusion. TRIAGE NURSE: Tasia Moses RDCS
[2019-06-09] MEDS: ENOXAPARIN 80 MG/0.8 ML SYRINGE SQ SCH ×2 (12:04→22:08)
--- NOTE | 2019-06-09 16:28 | P.PN ---
Subjective Progress Note Date: 06/09/19 Patient is a 74-year-old female with a PMH of metastatic melanoma diagnosed ~18 months ago s/p Opdivo for 11 months, currently on Mekinist and Tefinlar for the past 7 days, sent to the ED form Dr Morocho's office for SOB. The patient had presented to his office earlier today for her routine appointment where Tia Echols NP noted that the patient appeared more SOB. Patient endorsed to her that she has been getting tired and short of breath quickly since she began her new chemotherapy regimen. There was also concerns regarding the swelling and warmth of her LLE and the patient was subsequently sent to the ED. Upon arrival, the patient's vital signs were P 102, BP 145/93, T 98.1, and SpO2 96% on RA. The patient reported that along with the decreased exercise tolerance with shortness of breath, she has also had a persistent non-productive cough for the past few weeks to months. Patient reports no changes in her legs and states that since her knee surgeries, she has always had some LE swelling and hadn't noticed anything unusual. She denied leg pain, recent travel. She also denied chest pain, dizziness, palpitations. She denied vomiting, diarrhea, or abdominal pain. She underwent an extensive evaluation in the ED w/ venous doppler of the LLE positive for DVT from popliteal vein to the proximal calf veins. Chest CTA revealed extensive progressive metastatic disease involving the lungs, spleen, and liver without any evidence of PE. EKG revealed sinus tachycardia @ 105 bpm w/ TWI and q-wave in lead III. Laboratory evaluation revealed WBC count of 14.9, platelets of 103, AST 275, ALT 133, alk phos 162, sodium 136, potassium 4.6, BUN 37, and creatinine 0.68. Patient was admitted for further management. Today patient reports that she still is short of breath as she was at home and she talk to Dr. ravi earlier today and is thinking of getting a second opinion for her metastatic melanoma that has failed 2 types of treatments. Patient denies chest pain, palpitation, nausea, vomiting, fever, chills and denies rest of the review system. Objective - Vital Signs Vital signs: Vital Signs Temp 98.1 F 06/09/19 12:00 Pulse 96 06/09/19 12:00 Resp 18 06/09/19 12:00 BP 147/89 06/09/19 12:00 Pulse Ox 96 06/09/19 12:00 Intake & Output 06/08/19 06/09/19 06/09/19 18:59 06:59 18:59 Intake Total 160 480 Balance 160 480 Weight 75.296 kg 74 kg Intake: IV 160 0.9 160 Oral 480 Other: Voiding Method Toilet # Voids 1 2 - Constitutional General appearance: Present: cooperative, no acute distress - Neck Neck: Present: normal ROM. Absent: lymphadenopathy, rigidity, stridor, thyromegaly - Respiratory Respiratory: bilateral: CTA, rales (Scattered and fine.), negative: dullness, rhonchi, wheezing - Cardiovascular Rhythm: regular Heart sounds: normal: S1, S2 Abnormal Heart Sounds: Absent: systolic murmur, diastolic murmur, S3 Gallop, S4 Gallop - Gastrointestinal General gastrointestinal: Present: normal bowel sounds, soft. Absent: distended, rigid, tenderness - Neurologic Neurologic: Present: CNII-XII intact. Absent: focal deficits - Psychiatric Psychiatric: Present: A&O x's 3, appropriate affect, intact judgment & insight - Allied health notes Allied health notes reviewed: nursing - Labs CBC & Chem 7: 06/09/19 05:34 06/09/19 05:34 Labs: Abnormal Lab Results - Last 24 Hours (Table) 06/08/19 06/08/19 06/08/19 Range/Units 18:09 18:09 18:09 WBC 14.9 H (3.8-10.6) k/uL RBC 5.56 H (3.80-5.40) m/uL Hct 48.5 H (34.0-46.0) % Plt Count 103 L (150-450) k/uL Neutrophils # 8.4 H (1.3-7.7) k/uL Lymphocytes # 5.6 H (1.0-4.8) k/uL APTT 84.3 H (22.0-30.0) sec Sodium 136 L (137-145) mmol/L BUN 37 H (7-17) mg/dL Glucose 102 H (74-99) mg/dL AST 275 H (14-36) U/L ALT 133 H (9-52) U/L Alkaline Phosphatase 162 H (38-126) U/L Total Protein (6.3-8.2) g/dL Albumin 3.4 L (3.5-5.0) g/dL 06/09/19 06/09/19 Range/Units 05:34 05:34 WBC (3.8-10.6) k/uL RBC (3.80-5.40) m/uL Hct (34.0-46.0) % Plt Count 107 L (150-450) k/uL Neutrophils # (1.3-7.7) k/uL Lymphocytes # (1.0-4.8) k/uL APTT (22.0-30.0) sec Sodium 136 L (137-145) mmol/L BUN 34 H (7-17) mg/dL Glucose 128 H (74-99) mg/dL AST 228 H (14-36) U/L ALT 130 H (9-52) U/L Alkaline Phosphatase (38-126) U/L Total Protein 5.9 L (6.3-8.2) g/dL Albumin 3.0 L (3.5-5.0) g/dL Assessment and Plan Plan: Acute LLE DVT in setting of malignancy -Start patient on Lovenox -Heme/Onc consulted, seen by Dr. Morocho's [facility] today and their input awaited. -Monitor CBC Shortness of breath, possibly due to extensive metastatic melanoma disease burden -Monitor for now -Supplemental oxygen -Echocardiogram - Normal LV size, Moderate concentric LVH, EF-60-65%, other chambers and valves are all normal. Thrombocytopenia -Likely due to chemotherapy -Monitor for now - no worsening noted. Leukocytosis -Likely due to underlying malignancy - Resolved. Abnormal LFTs -Possibly secondary to metastatic disease of the liver -Monitor for now Chronic conditions: HTN, HLD -C/w home meds DVT prophylaxis -Pt. is already on full dose Lovenox for LLEx DVT.
[2019-06-09] MEDS: MELATONIN 5 MG TABLET PO SCH (22:22)
--- NOTE | 2019-06-09 22:32 | P.CONS ---
History of Present Illness - Reason for Consult Consult date: 06/09/19 shortness of breath, left lower extremity DVT, melanoma - History of Present Illness Ms Dodge is a 74 yr old white female with overall well-controlled medical problems. The patient was found to have a suspicious lesion on the right upper back and underwent excision on 05/15/18. she had first noticed a "growth" around 07/21. This had slowly grown in size, and by 04/22 was causing symptoms like increasing and mild discomfort. This revealed malignant melanoma, 16 mm with tumor extending to the deep margin. Tumor was 1.9 cm, with mitosis/millimeter square, with ulceration. The patient was referred to the [facility], and had wide excision with sentinel node biopsy on 07/10/18. Section and nodes were localize to the right axilla, and 3 of 3 were involved. She had staging workup on 07/22/[address] of the chest abdomen and pelvis and MRI of the brain revealing no distant metastasis. Scattered subcentimeter nodules was seen in the lung, along with conglomerate right axillary mass measuring 5.9 x 4.1 cm and left axillary pamela mass measuring 3.7 x 2.6 cm. The patient then underwent bilateral axillary node dissection on 08/06/18. On the right melanoma was noted in 1/12 lymph nodes with no extranodal extension. On the left 9 lymph nodes were negative. Her tumor was BRAF V600 positive. she was seen by oncology at the [facility]. She was staged as stage IIIc, pT4 b N 3b. Adjuvant therapy was recommended, with Nivolumab preferred, versus Dabrafenib + Trametinib combination based on side effect profile. she was referred here for further treatment, as she desired that closer to home. she denied any prior history of malignancy. there is no history of any autoimmune disease. Opdivo was planned, but delayed as the pt could not get her restaging CT scans and brain MRI done till 10/30/18. She was supposed to start on 11/07/18 CT scans however showed subq nodules in the rt posterior chest wall area 1 x 0.7 and 1 x 0.8. A 4.9 cm density was noted in thezzx rt axilla and a 2.4 cm density in the left axilla. she had a PET and done, which confirmed a 9 mm subcutaneous mass just inferior and lateral to the right scapula, with SUV of 3.71. Another mass was noted in the right upper back along the superior aspect of the scapula, about 1 cm, which was suspicious in appearance but ametabolic. CBC, CMP and LDH were normal. She was seen back at the [facility], and case d/w Dr Salguero. It was recommended that she proceed with Opdivo, and be reassessed for possible resection down the line depending on response. She started opdivo on 12/19/18 after Port placement ( at her request), and is s/p 7 cycles She has noted an increase in size of the mass overlying the rt scapula, with mild soreness. She has also felt a new nodule on her RUE MRI was repeated on 03/12/19 as the pt was c./o dizziness. This showed stable white matter changes. On clinical exam, the right upper back mass seemed to show progressive increase in size. Therefore PET scan was performed on 03/21/19. This revealed increase in size of the right upper back mass, with elevated SUV. The right midback lesion near the scapular tip is less well defined but was larger in size at 1.8 cm, also PET positive. Bilateral lung nodules were noted, some new, with at least some showing increase in size from before. Lung nodules are however not PET avid. 3.5 cm indeterminate lesion was seen in the spleen, as well as a questionable focus of uptake in the central portion of the liver. Case was d/w [facility], and it was decided to continue for 2 more cycles, to r/o pseudoprogression. CT scan, on 05/20/19, however, confirms progression with multiple bilateral lung nodules at least 20, new subcutaneous nodules, as well as metastatic lesions now seen in the liver, bilateral adrenal glands, and spleen The patient was therefore started on Tafinlar-Mekinist. He had been on this regimen for just about a week when seen in the office on 06/08/19. She had multiple complaints, including subjective fevers, increased shortness of breath, increasing generalized weakness as well as intermittent nausea and occasional vomiting. She was noted to have lower extremity swelling. She was therefore sent in to the emergency room, and had a Doppler and CTA done. Dopplers revealed left lower extremity DVT extending from the popliteal into the calf veins. CTA was negative for PE, but did show bilateral ground glass opacities suspicious for pneumonitis, in addition to the metastatic lung nodules. The scan also mention progression of adrenal metastasis and liver metastasis but was compared to the PET scan done in 03/23 and not the most recent CT scan from 05/23. In the office, liver enzymes also showed near doubling into the 200 range, compared to 90-100 on 05/20/19 Should was therefore admitted for further management and consult placed Review of Systems Constitutional: Reports fatigue, Reports poor appetite, Reports weakness Eyes: denies blurred vision, denies pain Ears: deny: decreased hearing, ear discharge, earache, tinnitus Ears, nose, mouth and throat: Denies headache, Denies sore throat Cardiovascular: Reports palpitations, Reports shortness of breath Respiratory: Reports dyspnea Gastrointestinal: Reports nausea, Reports vomiting Genitourinary: Denies dysuria, Denies hematuria Menstruation: Reports postmenopausal Musculoskeletal: Reports muscle weakness Integumentary: Reports as per HPI (skin nodules due to metastatic disease right upper back and right posterolateral chest wall) Neurological: Reports weakness, Denies numbness Psychiatric: Denies anxiety, Denies depression Endocrine: Reports fatigue, Reports weight change Hematologic/Lymphatic: Reports as per HPI, Reports thrombophilia Past Medical History Past Medical History: Cancer, Hyperlipidemia, Hypertension, Pneumonia Additional Past Medical History / Comment(s): metatastic melanoma dx 2018 History of Any Multi-Drug Resistant Organisms: None Reported Past Surgical History: Bladder Surgery, Hernia Repair, Hysterectomy, Orthopedic Surgery Additional Past Surgical History / Comment(s): tumor removal ight breast Past Anesthesia/Blood Transfusion Reactions: No Reported Reaction Past Psychological History: No Psychological Hx Reported Smoking Status: Never smoker Past Alcohol Use History: None Reported Past Drug Use History: None Reported Medications and Allergies Home Medications Medication Instructions Recorded Confirmed Type Meloxicam [Mobic] 7.5 mg PO BID 06/08/19 06/08/19 History Nortriptyline [Pamelor] 10 mg PO HS 06/08/19 06/08/19 History Nystatin-Triamcinolone Oint 1 applic TOPICAL BID PRN 06/08/19 06/08/19 History [Mycolog 100,000-0.1 Unit/gm-% Oint] Omeprazole 20 mg PO DAILY 06/08/19 06/08/19 History Prochlorperazine [Compazine] 10 mg PO Q6H PRN 06/08/19 06/08/19 History Sertraline [Zoloft] 100 mg PO BID 06/08/19 06/08/19 History Tafinlar 75mg Capsule 150 mg PO Q12H 06/08/19 06/08/19 History Trametinib Dimethyl Sulfoxide 2 mg PO DAILY 06/08/19 06/08/19 History [Mekinist] amLODIPine BESYLATE [Norvasc] 2.5 mg PO DAILY 06/08/19 06/08/19 History Allergies Allergy/AdvReac Type Severity Reaction Status Date / Time ciprofloxacin [From Cipro] Allergy Hallucinati Verified 06/08/19 20:32 ons Penicillins Allergy Unknown Verified 06/08/19 20:32 Childhood Physical Exam Vitals: Vital Signs Temp Pulse Resp BP Pulse Ox 06/09/19 19:53 98.2 F 86 18 133/84 06/09/19 16:00 98 F 88 16 126/71 96 06/09/19 12:00 98.1 F 96 18 147/89 96 06/09/19 08:00 98 F 89 18 109/68 96 06/09/19 04:00 97.2 F L 100 18 129/83 94 L 06/09/19 00:00 97.4 F L 96 18 135/81 96 Intake and Output 06/09/19 06/09/19 06/09/19 06:59 14:59 22:59 Intake Total 160 480 500 Balance 160 480 500 Intake: IV 160 0.9 160 Oral 480 500 Other: Voiding Method Toilet # Voids 1 2 2 Weight 74 kg - Constitutional General appearance: mild distress - EENT Eyes: EOMI, PERRLA ENT: hearing grossly normal, normal oropharynx - Neck Neck: no lymphadenopathy Thyroid: bilateral: normal size - Respiratory Respiratory: bilateral: CTA - Cardiovascular Rhythm: regular Heart sounds: normal: S1, S2 - Gastrointestinal General gastrointestinal: hepatomegaly, normal bowel sounds, soft - Integumentary 3-3.5 cm nodule the right upper back, and 2.5 cm nodule posterolateral right chest wall in posterior axillary line - Neurologic Neurologic: CNII-XII intact, focal deficits - Musculoskeletal Musculoskeletal: generalized weakness, strength equal bilaterally - Psychiatric Psychiatric: A&O x's 3 Results CBC & Chem 7: 06/09/19 05:34 06/09/19 05:34 Labs: Abnormal Lab Results - Last 24 Hours (Table) 06/09/19 06/09/19 Range/Units 05:34 05:34 Plt Count 107 L (150-450) k/uL Sodium 136 L (137-145) mmol/L BUN 34 H (7-17) mg/dL Glucose 128 H (74-99) mg/dL AST 228 H (14-36) U/L ALT 130 H (9-52) U/L Total Protein 5.9 L (6.3-8.2) g/dL Albumin 3.0 L (3.5-5.0) g/dL Comments: echocardiogram report reviewed CT scan - chest: report reviewed Venous US: report reviewed Assessment and Plan (1) Acute DVT (deep venous thrombosis) Narrative/Plan: Agent is at risk because of her metastatic malignancy. She was also check for a PE because of her shortness of breath and was found to be negative for the same. Case was discussed with the emergency room physician, and treatment with IV heparin recommended to begin with. The patient can subsequently be switched to one of the DO ACs for oral outpatient anticoagulation Current Visit: Yes Status: Acute Code(s): I82.409 - ACUTE EMBOLISM AND THOMBOS UNSP DEEP VN UNSP LOWER EXTREMITY SNOMED Code(s): 708710042059045 (2) Respiratory insufficiency Narrative/Plan: The patient has known lung metastasis, with significant progression noted on CAT scan done last month. The current CAT scan does show bilateral ground glass opacities in addition to the lung nodules. These are likely to be the etiology of her shortness of breath as the patient was relatively asymptomatic at the time of her previous CAT scan in 05/23 The etiology of these opacities which are felt to represent pneumonitis is not currently known. The patient had been having fever and therefore infection is possible. She has been started on antibiotics. However medication affect is more likely. These could represent autoimmune pneumonitis from opdivo occurring at a somewhat delayed phenomenon as her last dose was about 3 weeks ago. In addition her current regimen specifically Tafinlar, also cause pneumonitis Therefore it was recommended during discussion with the ER physician that the patient be placed on IV steroids. Current anticancer medications have been held. Report improvement in her symptoms. Continue to monitor on steroids. If the patient improves further she can be switched to oral steroids and then start a taper. Current Visit: Yes Status: Acute Code(s): R06.89 - OTHER ABNORMALITIES OF BREATHING SNOMED Code(s): 479384338 (3) Metastatic melanoma Narrative/Plan: Issues current presentation makes her situation quite complicated in terms of treatment options. She had progressed on opdivo as noted. He is now presenting with multiple complaints that could, at least in part, represent adverse drug events. These include her liver enzyme elevation, as well as pneumonitis. In addition it is difficult to determine (if these are adverse drug events) if these represent a delayed autoimmune phenomenon due to opdivo, or are caused by her current regimen, as both are possible. The above was discussed with the patient. This time anticancer treatment is on hold. If her acute situation improves, I would recommend starting her back on Tafinlar alone. This could carry the risk of recurrent symptoms, but we have to make sure if reactions are indeed due to her current regimen, as in that case, her treatment options would be extremely limited. Mekinist in any case, has to be held for at least 3 weeks after a VTE Pt expressed understanding of the same. Current Visit: Yes Status: Acute Code(s): C79.9 - SECONDARY MALIGNANT NEOPLASM OF UNSPECIFIED SITE SNOMED Code(s): 784606290
[2019-06-10] MEDS: PANTOPRAZOLE 40 MG TABLET PO SCH (06:46)
[2019-06-10 07:40] LABS: Basophils % (A) 0 %; Eosinophils % (A) 0 %; HCT 41.9 % (34.0-46.0); HGB 13.6 gm/dL (11.4-16.0); Lymphocytes % (A) 42 %; MCH 28.4 pg (25.0-35.0); MCHC 32.5 g/dL (31.0-37.0); MCV 87.3 fL (80.0-100.0); Mean Platelet Volume 6.4; Monocytes # (A) 0.5 k/uL (0-1.0); Monocytes % (A) 5 %; Neutrophils # (A) 4.7 k/uL (1.3-7.7); Neutrophils % (A) 50 %; Platelet Count 106 k/uL (150-450); RDW 13.4 % (11.5-15.5); WBC 9.5 k/uL (3.8-10.6)
[2019-06-10] MEDS: amLODIPine 2.5 MG TAB PO SCH (08:29)
[2019-06-10] MEDS: SERTRALINE 100 MG TAB PO SCH ×2 (08:29→21:04)
[2019-06-10] MEDS: ENOXAPARIN 80 MG/0.8 ML SYRINGE SQ SCH ×2 (08:30→21:04)
[2019-06-10] MEDS: HYDROcodone/APAP 5-325MG 1 EACH TAB PO PRN ×3 (10:04→23:10)
--- NOTE | 2019-06-10 14:01 | P.PN ---
Subjective Progress Note Date: 06/10/19 Patient is a 74-year-old female with a PMH of metastatic melanoma diagnosed ~18 months ago s/p Opdivo for 11 months, currently on Mekinist and Tefinlar for the past 7 days, sent to the ED form Dr Morocho's office for SOB. The patient had presented to his office earlier today for her routine appointment where Tia Echols NP noted that the patient appeared more SOB. Patient endorsed to her that she has been getting tired and short of breath quickly since she began her new chemotherapy regimen. There was also concerns regarding the swelling and warmth of her LLE and the patient was subsequently sent to the ED. Upon arrival, the patient's vital signs were P 102, BP 145/93, T 98.1, and SpO2 96% on RA. The patient reported that along with the decreased exercise tolerance with shortness of breath, she has also had a persistent non-productive cough for the past few weeks to months. Patient reports no changes in her legs and states that since her knee surgeries, she has always had some LE swelling and hadn't noticed anything unusual. She denied leg pain, recent travel. She also denied chest pain, dizziness, palpitations. She denied vomiting, diarrhea, or abdominal pain. She underwent an extensive evaluation in the ED w/ venous doppler of the LLE positive for DVT from popliteal vein to the proximal calf veins. Chest CTA revealed extensive progressive metastatic disease involving the lungs, spleen, and liver without any evidence of PE. EKG revealed sinus tachycardia @ 105 bpm w/ TWI and q-wave in lead III. Laboratory evaluation revealed WBC count of 14.9, platelets of 103, AST 275, ALT 133, alk phos 162, sodium 136, potassium 4.6, BUN 37, and creatinine 0.68. On 06/10/2019 patient reportes that she is still short of breath as she was at home and she is thinking of getting a second opinion for her metastatic melanoma that has failed 2 types of treatments, but after being discharged from this hospitalization. Patient did complain of having low back pain and was requesting. Medications. She was not on pain medications before but is requesting something to control her back pain. Patient also stated that she hasn't had a bowel movement for 2 days but she is passing a lot of gas is rectum. Patient denies chest pain, palpitation, nausea, vomiting, fever, chills and denies rest of the review system. Objective - Vital Signs Vital signs: Vital Signs Temp 98.3 F 06/10/19 12:00 Pulse 78 06/10/19 12:00 Resp 18 06/10/19 12:00 BP 132/78 06/10/19 12:00 Pulse Ox 96 06/10/19 12:00 Intake & Output 06/09/19 06/10/19 06/10/19 18:59 06:59 18:59 Intake Total 980 240 240 Balance 980 240 240 Weight 75.6 kg Intake: Oral 980 240 240 Other: Voiding Method Toilet # Voids 2 1 2 - Constitutional General appearance: Present: cooperative, no acute distress - EENT Eyes: Present: EOMI, normal appearance ENT: Present: hearing grossly normal, NA/AT - Neck Neck: Present: normal ROM. Absent: lymphadenopathy, rigidity, stridor, thyromegaly - Respiratory Respiratory: bilateral: diminished, dullness (Mild at bases.), rales (At bases, with fine rales.), negative: rhonchi, wheezing - Cardiovascular Rhythm: regular Heart sounds: normal: S1, S2 Abnormal Heart Sounds: Absent: systolic murmur, diastolic murmur, S3 Gallop, S4 Gallop - Gastrointestinal General gastrointestinal: Present: normal bowel sounds, soft. Absent: distended, rigid, tenderness - Neurologic Neurologic: Present: CNII-XII intact. Absent: focal deficits - Psychiatric Psychiatric: Present: A&O x's 3, appropriate affect, intact judgment & insight - Allied health notes Allied health notes reviewed: nursing - Labs CBC & Chem 7: 06/10/19 06:05 06/09/19 05:34 Labs: Abnormal Lab Results - Last 24 Hours (Table) 06/10/19 Range/Units 06:05 Plt Count 106 L (150-450) k/uL Microbiology - Last 24 Hours (Table) 06/08/19 21:10 Blood Culture - Preliminary Blood No Growth after 24 hours Assessment and Plan Plan: Acute LLE DVT in setting of malignancy -Start patient on Lovenox, as per UpTo-Date Cancer patient who develops DVT without PE has better response with s/c Lovenox than DOAC, care discussed in detail with pt. and pros and cons were discussed of anticoagulation along with s/e of Lovenox and all questions were answered. Pt.may need to be on AC for 6 months or more depending upon her response and further new episodes of DVT/PEs. Script was written and given to nurse for prior authorization. If denied then next medication will be Revaroxaban. -Heme/Onc consulted, seen by Dr. Morocho's [facility] today and their input appreciated. -Monitor CBC Shortness of breath, possibly due to extensive metastatic melanoma disease burden -Monitor for now, Dr. Morocho recs for I/V steroids as per noted on consult, we will start her on I/V Methyle-prednisolone scheduled for 24 hours and then will change to oral forms. -Supplemental oxygen, Pt. may benefit from home O2 evaluation. -Echocardiogram - Normal LV size, Moderate concentric LVH, EF-60-65%, other chambers and valves are all normal. Thrombocytopenia -Likely due to chemotherapy -Monitor for now - no worsening noted. Back Pain -This could be just due to her being in the hospital bed or may be further metastatic disease. Will start her on Hydrocodon/APAP low dose q4 hours PRN and monitor. Constipation -Pt. was educated about worsening constipation when on Narcotic pain medication. Will start her on Snnakot on schedule basis withhold parameters. Leukocytosis -Likely due to underlying malignancy - Resolved. Abnormal LFTs -Possibly secondary to metastatic disease of the liver -Monitor for now Chronic conditions: HTN, HLD -C/w home meds DVT prophylaxis -Pt. is already on full dose Lovenox for LLEx DVT. Time with Patient: Greater than 30 (>50% time spent on counseling and coordination of care.)
[2019-06-10] MEDS: methylPREDNISolone SOD SUCCI 125 MG/2 ML VIAL IV SCH ×2 (15:50→23:10)
--- NOTE | 2019-06-10 18:57 | P.PN ---
Subjective Progress Note Date: 06/10/19 Principal diagnosis: Difficulty in breathing, left lower extremity swelling. Metastatic melanoma. In follow-up today patient's respiratory status is significantly improved from y esterday. She has started Lovenox for left lower extremity DVT, tolerating well, no other bleeding to report. She was just started on steroids this evening. She thinks she may be constipated. She denies any pain, no other complaints Objective - Vital Signs Vital signs: Vital Signs Temp 97.6 F 06/10/19 15:55 Pulse 80 06/10/19 15:55 Resp 18 06/10/19 16:00 BP 152/83 06/10/19 15:55 Pulse Ox 95 06/10/19 15:55 Intake & Output 06/09/19 06/10/19 06/10/19 18:59 06:59 18:59 Intake Total 980 240 240 Balance 980 240 240 Weight 75.6 kg Intake: Oral 980 240 240 Other: Voiding Method Toilet # Voids 2 1 2 - Constitutional General appearance: Present: average body habitus, cooperative, no acute distress - EENT Eyes: Present: anicteric sclerae, EOMI ENT: Present: normal oropharynx - Neck Neck: Present: normal ROM - Respiratory Respiratory: bilateral: CTA - Cardiovascular Rhythm: regular Heart sounds: normal: S1, S2 Abnormal Heart Sounds: Present: systolic murmur - Peripheral edema leg Peripheral Edema: right: None, left: 2+ - Gastrointestinal General gastrointestinal: Present: normal bowel sounds, soft - Neurologic Neurologic: Present: CNII-XII intact - Musculoskeletal Musculoskeletal: Present: strength equal bilaterally - Psychiatric Psychiatric: Present: A&O x's 3, appropriate affect, intact judgment & insight - Labs CBC & Chem 7: 06/10/19 06:05 06/09/19 05:34 Labs: Abnormal Lab Results - Last 24 Hours (Table) 06/10/19 Range/Units 06:05 Plt Count 106 L (150-450) k/uL Microbiology - Last 24 Hours (Table) 06/08/19 21:10 Blood Culture - Preliminary Blood No Growth after 24 hours Assessment and Plan (1) Acute DVT (deep venous thrombosis) Narrative/Plan: Lovenox prescribed. Discuss case with case specialist, pending prior authorization for Lovenox. Quite possibly medication induced (mekinist). Recommendation is for 6 months of anticoagulation with repeat Doppler prior to considering dis continuation. Bleeding precautions briefly reviewed. Current Visit: Yes Status: Acute Priority: High Code(s): I82.409 - ACUTE EMBOLISM AND THOMBOS UNSP DEEP VN UNSP LOWER EXTREMITY SNOMED Code(s): 556097958554005 (2) Metastatic melanoma Narrative/Plan: Patient was on tafinlar/mekinist 7 days. Due to complication of DVT mekinist needs to be held up to 3 weeks until DVT is treated and symptoms are improved. It will be resumed at a reduced dose. This was discussed with her. She verbalized having to stop current dose. New dose prescription sent. Patient will continue tafinlar as prescribed on DC F/U appt in DC plan Current Visit: Yes Status: Chronic Priority: High Code(s): C79.9 - SECONDARY MALIGNANT NEOPLASM OF UNSPECIFIED SITE SNOMED Code(s): 104726587 (3) Respiratory insufficiency Narrative/Plan: Patient's symptoms are slightly better than on admission. No PE. She has been started on steroids. We will see how her respiratory status improves. Discussed with CM, to evaluate pt for home O2 Current Visit: Yes Status: Acute Priority: High Code(s): R06.89 - OTHER ABNORMALITIES OF BREATHING SNOMED Code(s): 442627110 Plan: Meds for constipation ordered
[2019-06-10 21:01] LABS: Glucose,Whole Blood 130 mg/dL (75-99)
[2019-06-10] MEDS: MELATONIN 5 MG TABLET PO SCH (21:04)
[2019-06-10] MEDS: SENNOSIDES 8.6 MG TAB PO SCH (21:04)
[2019-06-10] MEDS: INSULIN ASPART (NovoLOG) 100 UNIT/ML VIAL SQ SCH (21:05)
[2019-06-11 06:25] VITALS: RESP 16
[2019-06-11 06:29] LABS: Basophils % (A) 0 %; Eosinophils % (A) 0 %; HCT 42.3 % (34.0-46.0); HGB 13.5 gm/dL (11.4-16.0); Lymphocytes % (A) 39 %; MCHC 31.9 g/dL (31.0-37.0); MCV 87.6 fL (80.0-100.0); Mean Platelet Volume 6.3; Monocytes # (A) 0.2 k/uL (0-1.0); Monocytes % (A) 2 %; Neutrophils # (A) 4.4 k/uL (1.3-7.7); Neutrophils % (A) 57 %; Platelet Count 112 k/uL (150-450); RBC 4.83 m/uL (3.80-5.40); RDW 13.3 % (11.5-15.5); WBC 7.7 k/uL (3.8-10.6)
[2019-06-11 06:32] LABS: Glucose,Whole Blood 127 mg/dL (75-99)
[2019-06-11] MEDS: INSULIN ASPART (NovoLOG) 100 UNIT/ML VIAL SQ SCH ×2 (06:34→13:03)
[2019-06-11] MEDS: PANTOPRAZOLE 40 MG TABLET PO SCH (06:38)
[2019-06-11] MEDS: methylPREDNISolone SOD SUCCI 125 MG/2 ML VIAL IV SCH ×2 (06:38→11:46)
[2019-06-11] MEDS: SENNOSIDES 8.6 MG TAB PO SCH (09:48)
[2019-06-11] MEDS: amLODIPine 2.5 MG TAB PO SCH (09:48)
[2019-06-11] MEDS: SERTRALINE 100 MG TAB PO SCH (09:48)
[2019-06-11] MEDS: ENOXAPARIN 80 MG/0.8 ML SYRINGE SQ SCH (09:49)
[2019-06-11 12:44] VITALS: BP 138/80; PULSE 80; TEMP 98.2
[2019-06-11 13:03] LABS: Glucose,Whole Blood 125 mg/dL (75-99)
[2019-06-11] MEDS ORDERED: predniSONE 20 MG TAB PO SCH (14:00)
--- NOTE | 2019-06-11 14:57 | P.DS ---
Providers Date of admission: 06/08/19 20:05 Expected date of discharge: 06/11/19 Attending physician: Nasra Krishnan MD Consults: 06/08/19 20:06 Consult Physician Urgent Consulting Provider: Marcell Morocho Consult Reason/Comments: metastatic melanoma Do you want consulting provider notified?: Already Contacted Primary care physician: Javad Ga - Discharge Diagnosis(es) (1) Acute DVT (deep venous thrombosis) Current Visit: Yes Status: Acute Priority: High (2) Respiratory insufficiency Current Visit: Yes Status: Acute Priority: High (3) Metastatic melanoma Current Visit: Yes Status: Chronic Priority: High Hospital Course: Patient is a 74-year-old female with a PMH of metastatic melanoma diagnosed ~18 months ago s/p Opdivo for 11 months, currently on Mekinist and Tefinlar for the past 7 days, sent to the ED form Dr Morocho's office for SOB. The patient had presented to his office on the day of admission, for her routine appointment, where Tia Echols NP noted that the patient appeared more SOB. Patient endorsed to her that she has been getting tired and short of breath quickly since she began her new chemotherapy regimen. There was also concerns regarding the swelling and warmth of her LLE and the patient was subsequently sent to the ED. Upon arrival to the ED, the patient's vital signs were P 102, BP 145/93, T 98.1, and SpO2 96% on RA. The patient reported that along with the decreased exercise tolerance with shortness of breath, she has also had a persistent non- productive cough for the past few weeks to months. Patient reports no changes in her legs and states that since her knee surgeries, she has always had some LE swelling and hadn't noticed anything unusual. She denied leg pain, recent travel. She also denied chest pain, dizziness, palpitations. She denied vomiting, diarrhea, or abdominal pain. She underwent an extensive evaluation in the ED w/ venous doppler of the LLE positive for DVT from popliteal vein to the proximal calf veins. Chest CTA revealed No PE but extensive progressive metastatic disease involving the lungs, spleen, and liver. EKG revealed sinus tachycardia @ 105 bpm w/ TWI and q-wave in lead III. Laboratory evaluation revealed WBC count of 14.9, platelets of 103, AST 275, ALT 133, alk phos 162, sodium 136, potassium 4.6, BUN 37, and creatinine 0.68. Patient was admitted for further management and did well with the conservative treatment. Dr. Morocho had recommended for holding her chemo and placing her on Steroids with slow tapering and she was placed on S/C LOVENOX due to her metastatic cancer history. Patient had talk to Dr. Morocho that she is thinking of getting a second opinion for her metastatic melanoma that had failed 2 types of treatments an that she is thinking for [facility] and Dr. Morocho agreed, as reported by the pt. Today pt's vitals are stable and she passed oxygen stress test with 92% on RA post walking, her lungs are still coarse, heart is regular, abdomen is soft with BS+. Patient owen lbe discharged home today. Acute LLE DVT in setting of metastatic malignancy -As per [employer] [facility] patient who develops DVT without PE has better response with s/c Lovenox than DOAC, care discussed in detail with pt. and pros and cons were discussed of anticoagulation along with s/e of Lovenox and all questions were answered. Pt.may need to be on AC for 6 months or more depending upon her response and further new episodes of DVT/PEs. Script was written and given to nurse for prior authorization and was approved today. -Dr. Morocho's [employer]ENHOUSE INSTRUCTOR, Fawn Echols in 4 days (06/15/2019). Shortness of breath, possibly due to extensive metastatic melanoma disease burden -Dr. Morocho recs for I/V steroids as per noted on consult, we will start her on I/V Methyle-prednisolone scheduled for 24 hours and then changed to oral PREDNISONE, dose will be tapered as per Dr. Morocho's recommendations on f/u visit with Ms. Echols . -Supplemental oxygen was given while in the hospital, Pt. passed O2 stress test and is not a candidate for home O2. -Echocardiogram - Normal LV size, Moderate concentric LVH, EF-60-65%, other chambers and valves are all normal. Thrombocytopenia -Likely due to chemotherapy -Monitor for now - no worsening noted. Back Pain -This could be just due to her being in the hospital bed or may be further metastatic disease. Will start her on Hydrocodon/APAP low dose q4 hours PRN and monitor. Script for Hydrocodone/APAP 5/325mg 1 q6 hr PRN #12 Zero refills, given. Constipation -Pt. was educated about worsening constipation when on Narcotic pain medication. Will start her on Snnakot on schedule basis withhold parameters, script given. Leukocytosis -Likely due to underlying malignancy - Resolved. Abnormal LFTs -Possibly secondary to metastatic disease of the liver -Monitor for now Chronic conditions: HTN, HLD -C/w home meds. Assessment: as above Patient Condition at Discharge: Serious Plan - Discharge Summary Discharge Rx Participant: No New Discharge Prescriptions: New Enoxaparin [Lovenox] 75 mg SQ Q12H 30 Days #60 syringe HYDROcodone/APAP 5-325MG [[place] 5-325] 1 each PO Q4HR PRN 3 Days #12 tab PRN Reason: Pain Sennosides [Senokot] 8.6 mg PO BID 30 Days #60 tab predniSONE 40 mg PO DIRECTED 15 Days #30 tab Continue Prochlorperazine [Compazine] 10 mg PO Q6H PRN PRN Reason: Nausea Sertraline [Zoloft] 100 mg PO BID Omeprazole 20 mg PO DAILY Nystatin-Triamcinolone Oint [Mycolog 100,000-0.1 Unit/gm-% Oint] 1 applic TOPICAL BID PRN PRN Reason: Skin Irritation amLODIPine BESYLATE [Norvasc] 2.5 mg PO DAILY Nortriptyline [Pamelor] 10 mg PO HS Meloxicam [Mobic] 7.5 mg PO BID Trametinib Dimethyl Sulfoxide [Mekinist] 2 mg PO DAILY Tafinlar 75mg Capsule 150 mg PO Q12H Discharge Medication List Meloxicam [Mobic] 7.5 mg PO BID 06/08/19 [History] Nortriptyline [Pamelor] 10 mg PO HS 06/08/19 [History] Nystatin-Triamcinolone Oint [Mycolog 100,000-0.1 Unit/gm-% Oint] 1 applic TOPICAL BID PRN 06/08/19 [History] Omeprazole 20 mg PO DAILY 06/08/19 [History] Prochlorperazine [Compazine] 10 mg PO Q6H PRN 06/08/19 [History] Sertraline [Zoloft] 100 mg PO BID 06/08/19 [History] Tafinlar 75mg Capsule 150 mg PO Q12H 06/08/19 [History] Trametinib Dimethyl Sulfoxide [Mekinist] 2 mg PO DAILY 06/08/19 [History] amLODIPine BESYLATE [Norvasc] 2.5 mg PO DAILY 06/08/19 [History] Enoxaparin [Lovenox] 75 mg SQ Q12H 30 Days #60 syringe 06/11/19 [Rx] HYDROcodone/APAP 5-325MG [[place] 5-325] 1 each PO Q4HR PRN 3 Days #12 tab 06/11/19 [Rx] Sennosides [Senokot] 8.6 mg PO BID 30 Days #60 tab 06/11/19 [Rx] predniSONE 40 mg PO DIRECTED 15 Days #30 tab 06/11/19 [Rx] Follow up Appointment(s)/Referral(s): Fawn Echols NPC [Nurse Practitioner] - 06/15/19 10:30 am Javad Koroma MD [Primary Care Provider] - 1-2 days Patient Instructions/Handouts: Enoxaparin (By injection) Activity/Diet/Wound Care/Special Instructions: HOLD MEKINIST. MAY RESUME ON 06/30 IF OK WITH PHYSICIAN AT A REDUCED DOSE pts Lovenox is filled in [facility] pharmacy at $56.11 for a 30 day supply Discharge Disposition: HOME WITH HOME HEALTH SERVICES
--- NOTE | 2019-06-12 00:07 | P.PN ---
Subjective Progress Note Date: 06/11/19 The patient feels much improved. She is sitting up in the chair eating in the time of reevaluation. She is still using oxygen but appears in no apparent distress. She stated that she was much more comfortable walking to and from the bathroom. Appetite had improved. Objective - Vital Signs Vital signs: Vital Signs Temp 98.2 F 06/11/19 12:00 Pulse 80 06/11/19 12:00 Resp 16 06/11/19 12:00 BP 138/80 06/11/19 12:00 Pulse Ox 95 06/11/19 12:00 Intake & Output 06/11/19 06/11/19 06/12/19 06:59 18:59 06:59 Intake Total 360 Balance 360 Weight 74.6 kg Intake: Oral 360 Other: Voiding Method Toilet Toilet # Voids 1 3 # Bowel Movements 0 - Constitutional General appearance: Present: no acute distress - EENT Eyes: Present: EOMI ENT: Present: hearing grossly normal, normal oropharynx - Respiratory Respiratory: bilateral: CTA - Cardiovascular Rhythm: regular Heart sounds: normal: S1, S2 - Gastrointestinal General gastrointestinal: Present: normal bowel sounds, soft - Integumentary Integumentary Comment(s): Metastatic lesions right chest wall, Right upper back as described previously - Neurologic Neurologic: Present: CNII-XII intact - Musculoskeletal Musculoskeletal: Present: generalized weakness, strength equal bilaterally - Psychiatric Psychiatric: Present: A&O x's 3, appropriate affect - Labs CBC & Chem 7: 06/11/19 05:30 06/09/19 05:34 Labs: Abnormal Lab Results - Last 24 Hours (Table) 06/11/19 06/11/19 06/11/19 Range/Units 05:30 06:31 13:02 Plt Count 112 L (150-450) k/uL POC Glucose (mg/dL) 127 H 125 H (75-99) mg/dL Microbiology - Last 24 Hours (Table) 06/08/19 21:10 Blood Culture - Preliminary Blood No Growth after 72 hours Assessment and Plan (1) Acute DVT (deep venous thrombosis) Narrative/Plan: The patient is continuing on IV heparin With improvement in her lower extremity. She can be switched to one of the DO ACs and continue that on discharge. As her DVT is related to metastatic malignancy, she will likely need to stay on anticoagulation indefinitely as long as she tolerates it well Status: Acute Priority: High Code(s): I82.409 - ACUTE EMBOLISM AND THOMBOS UNSP DEEP VN UNSP LOWER EXTREMITY SNOMED Code(s): 485824698222959 (2) Respiratory insufficiency Narrative/Plan: This has improved markedly. Given the CT appearance, and her good response to steroids, it would have to be resumed that drug-induced pneumonitis is a major differential diagnosis. However it is not clear if this is due to her current regimen or the previous one Plan to switch to oral steroids and continue slow taper as an outpatient. At the time of discharge she will resume her Tafinlar. Assuming she continues to improve,Mekinist will be added back after 2-3 weeks at a lower dose Status: Acute Priority: High Code(s): R06.89 - OTHER ABNORMALITIES OF BREATHING SNOMED Code(s): 862383694 (3) Metastatic melanoma Narrative/Plan: Treatment plan as described above Status: Chronic Priority: High Code(s): C79.9 - SECONDARY MALIGNANT NEOPLASM OF UNSPECIFIED SITE SNOMED Code(s): 990820994
== END 2019-06-11 17:00 | disposition home health service (06) | DRG 300 ==
LOC: EC 17:39 → 3SCARD 20:05
PROVIDERS: ADMIT Internal Medicine; ATTEND Internal Medicine
DX: I82.432 Acute embolism and thrombosis of left popliteal vein (principal); C78.7 Secondary malignant neoplasm of liver and intrahepatic bile duct; C78.02 Secondary malignant neoplasm of left lung; C78.01 Secondary malignant neoplasm of right lung; C78.89 Secondary malignant neoplasm of other digestive organs; C79.72 Secondary malignant neoplasm of left adrenal gland; C79.71 Secondary malignant neoplasm of right adrenal gland; C43.9 Malignant melanoma of skin, unspecified; D69.59 Other secondary thrombocytopenia; T45.1X5A Adverse effect of antineoplastic and immunosuppressive drugs, initial encounter; E78.5 Hyperlipidemia, unspecified; I10 Essential (primary) hypertension; J70.4 Drug-induced interstitial lung disorders, unspecified; R06.89 Other abnormalities of breathing; I82.4Z2 Acute embolism and thrombosis of unspecified deep veins of left distal lower extremity; K59.00 Constipation, unspecified; Z79.1 Long term (current) use of non-steroidal anti-inflammatories (NSAID); Z79.899 Other long term (current) drug therapy; Z90.710 Acquired absence of both cervix and uterus; Z79.52 Long term (current) use of systemic steroids; Z88.1 Allergy status to other antibiotic agents; Z88.0 Allergy status to penicillin; D72.829 Elevated white blood cell count, unspecified
CPT/HCPCS: 36415; 71275; 80053; 83880; 84484; 85025; 85610; 85730; 87040; 87502; 93005; 93306; 94640; 96374; 96375; 99285

== ENCOUNTER 2019-06-23 15:36 | Inpatient (IN) | payer MEDICARE ==
[2019-06-23] MEDS ORDERED: SODIUM CHLORIDE 0.9% 500 ML 500 ML IV STA (15:59)
[2019-06-23] MEDS ORDERED: ONDANSETRON 4 MG/2 ML VIAL IVP STA (15:59)
--- NOTE | 2019-06-23 16:06 | ED ---
General Adult HPI - General Chief complaint: Weakness Stated complaint: NOT FEELING WELL, [facility] [place] Time Seen by Provider: 06/23/19 15:40 Source: patient, RN notes reviewed, old records reviewed Mode of arrival: wheelchair Limitations: no limitations - History of Present Illness Initial comments: This a 74-year-old female presents emergency Department with past medical history significant for metastatic melanoma. Patient states she started her chemotherapy a week and half ago after she had to stop it secondary to side effects. Patient comes in today because of weakness and generally just not feeling well. Patient states she has a dry heaves. Patient states since Saturday she was incontinent of urine with some dysuria and now she is having urinary retention. Patient states this is been ongoing since the earlier today. Patient denies any fever chills. Patient denies any chest pain but states she has been short of breath for the last 3 or 4 days. Patient denies any headache patient denies any numbness weakness. Patient states she does have some lower back pain but there is no radiation of the pain down her legs. Patient denies any lightheadedness or dizziness. Patient states she does have a DVT and is on eliquis. - Related Data Home Medications Medication Instructions Recorded Confirmed Meloxicam [Mobic] 7.5 mg PO BID 06/08/19 06/23/19 Nortriptyline [Pamelor] 10 mg PO HS 06/08/19 06/23/19 Nystatin-Triamcinolone Oint 1 applic TOPICAL BID PRN 06/08/19 06/23/19 [Mycolog 100,000-0.1 Unit/gm-% Oint] Omeprazole 20 mg PO DAILY 06/08/19 06/23/19 Prochlorperazine [Compazine] 10 mg PO Q6H PRN 06/08/19 06/23/19 Sertraline [Zoloft] 100 mg PO BID 06/08/19 06/23/19 Tafinlar 75mg Capsule 150 mg PO Q12H 06/08/19 06/23/19 Trametinib Dimethyl Sulfoxide 2 mg PO DAILY 06/08/19 06/23/19 [Mekinist] amLODIPine BESYLATE [Norvasc] 2.5 mg PO DAILY 06/08/19 06/23/19 Apixaban [Eliquis] See Taper PO DAILY 06/23/19 06/23/19 HYDROcodone/APAP 5-325MG [[place] 1 tab PO Q4HR PRN 06/23/19 06/23/19 5-325] Previous Rx's Medication Instructions Recorded Sennosides [Senokot] 8.6 mg PO BID 30 Days #60 tab 06/11/19 Allergies Allergy/AdvReac Type Severity Reaction Status Date / Time ciprofloxacin [From Cipro] Allergy Hallucinati Verified 06/23/19 15:41 ons Penicillins Allergy Unknown Verified 06/23/19 15:41 Childhood Review of Systems ROS Statement: Those systems with pertinent positive or pertinent negative responses have been documented in the HPI. ROS Other: All systems not noted in ROS Statement are negative. Past Medical History Past Medical History: Cancer, Hyperlipidemia, Hypertension, Pneumonia Additional Past Medical History / Comment(s): metatastic melanoma dx 2018 History of Any Multi-Drug Resistant Organisms: None Reported Past Surgical History: Bladder Surgery, Hernia Repair, Hysterectomy, Orthopedic Surgery Additional Past Surgical History / Comment(s): tumor removal ight breast Past Anesthesia/Blood Transfusion Reactions: No Reported Reaction Past Psychological History: No Psychological Hx Reported Smoking Status: Never smoker Past Alcohol Use History: None Reported Past Drug Use History: None Reported General Exam - General Exam Comments Initial Comments: GENERAL: Patient is well-developed and well-nourished. Patient is nontoxic and well-hydrated and is in mild distress. ENT: Neck is soft and supple. No significant lymphadenopathy is noted. Oropharynx is clear. Moist mucous membranes. Neck has full range of motion without eliciting any pain. EYES: The sclera were anicteric and conjunctiva were pink and moist. Extraocular movements were intact and pupils were equal round and reactive to light. Eyelids were unremarkable. PULMONARY: Unlabored respirations. Good breath sounds bilaterally. No audible rales rhonchi or wheezing was noted. CARDIOVASCULAR: There is a regular rate and rhythm without any murmurs gallops or rubs. ABDOMEN: Soft and nontender with normal bowel sounds. No palpable organomegaly was noted. There is no palpable pulsatile mass. SKIN: Skin is clear with no lesions or rashes and otherwise unremarkable. NEUROLOGIC: Patient is alert and oriented x3. Cranial nerves II through XII are grossly intact. Motor and sensory are also intact. Normal speech, volume and content. Symmetrical smile. MUSCULOSKELETAL: Normal extremities with adequate strength and full range of motion. No lower extremity swelling or edema. No calf tenderness. LYMPHATICS: No significant lymphadenopathy is noted PSYCHIATRIC: Normal psychiatric evaluation. Limitations: no limitations Course Vital Signs 06/23/19 06/23/19 15:39 18:11 Temperature 97.7 F Pulse Rate 108 H 97 Respiratory 22 18 Rate Blood Pressure 113/79 114/76 O2 Sat by Pulse 96 94 L Oximetry Medical Decision Making - Medical Decision Making Chest x-ray shows left lower lobe pneumonia I started the patient Rocephin. I spoke with Dr. Santoyo he agreed to admit the patient admitted the patient wrote admitting orders. Consult to Dr. Pérez I also spoke with Dr. Pérez and he was in agreement with the admission. EKG shows normal sinus rhythm at 93 bpm TN interval 250 QRS is 80 QT intervals 372 QTC is 462. Patient's EKG shows no ST segment elevation or depression or T- wave abnormality is noted. - Lab Data Result diagrams: 06/23/19 16:25 06/23/19 16:25 Lab Results 06/23/19 06/23/19 06/23/19 Range/Units 16:02 16:25 16:25 WBC 21.6 H (3.8-10.6) k/uL RBC 4.99 (3.80-5.40) m/uL Hgb 14.4 (11.4-16.0) gm/dL Hct 45.0 (34.0-46.0) % MCV 90.1 (80.0-100.0) fL MCH 28.8 (25.0-35.0) pg MCHC 32.0 (31.0-37.0) g/dL RDW 15.8 H (11.5-15.5) % Plt Count 154 (150-450) k/uL Neutrophils % (Manual) 59 % Lymphocytes % (Manual) 40 % Monocytes % (Manual) 1 % Neutrophils # (Manual) 12.74 H (1.3-7.7) k/uL Lymphocytes # (Manual) 8.64 H (1.0-4.8) k/uL Monocytes # (Manual) 0.22 (0-1.0) k/uL Nucleated RBCs 0 (0-0) /100 WBC Manual Slide Review Performed PT (9.0-12.0) sec INR (<1.2) APTT (22.0-30.0) sec Sodium 136 L (137-145) mmol/L Potassium 3.8 (3.5-5.1) mmol/L Chloride 106 (98-107) mmol/L Carbon Dioxide 23 (22-30) mmol/L Anion Gap 7 mmol/L BUN 37 H (7-17) mg/dL Creatinine 0.64 (0.52-1.04) mg/dL Est GFR (CKD-EPI)AfAm >90 (>60 ml/min/1.73 sqM) Est GFR (CKD-EPI)NonAf 90 (>60 ml/min/1.73 sqM) Glucose 91 (74-99) mg/dL Plasma Lactic Acid [place] (0.7-2.0) mmol/L Calcium 7.9 L (8.4-10.2) mg/dL Magnesium 2.2 (1.6-2.3) mg/dL Total Bilirubin 1.3 (0.2-1.3) mg/dL AST 441 H (14-36) U/L ALT 139 H (9-52) U/L Alkaline Phosphatase 148 H (38-126) U/L Troponin I (0.000-0.034) ng/mL Total Protein 5.4 L (6.3-8.2) g/dL Albumin 2.7 L (3.5-5.0) g/dL Urine Color Light [place] Urine Appearance Cloudy H (Clear) Urine pH 5.5 (5.0-8.0) Ur Specific [place] 1.031 (1.001-1.035) Urine Protein 1+ H (Negative) Urine Glucose (UA) Negative (Negative) Urine Ketones Negative (Negative) Urine Blood Moderate H (Negative) Urine Nitrite Negative (Negative) Urine Bilirubin Negative (Negative) Urine Urobilinogen 6.0 (<2.0) mg/dL Ur Leukocyte Esterase Small H (Negative) Urine RBC 7 H (0-5) /hpf Urine WBC 13 H (0-5) /hpf Ur Squamous Epith Cells 5 H (0-4) /hpf Urine Bacteria Many H (None) /hpf 06/23/19 06/23/19 06/23/19 Range/Units 16:25 16:25 16:25 WBC (3.8-10.6) k/uL RBC (3.80-5.40) m/uL Hgb (11.4-16.0) gm/dL Hct (34.0-46.0) % MCV (80.0-100.0) fL MCH (25.0-35.0) pg MCHC (31.0-37.0) g/dL RDW (11.5-15.5) % Plt Count (150-450) k/uL Neutrophils % (Manual) % Lymphocytes % (Manual) % Monocytes % (Manual) % Neutrophils # (Manual) (1.3-7.7) k/uL Lymphocytes # (Manual) (1.0-4.8) k/uL Monocytes # (Manual) (0-1.0) k/uL Nucleated RBCs (0-0) /100 WBC Manual Slide Review PT 11.3 (9.0-12.0) sec INR 1.1 (<1.2) APTT 52.1 H (22.0-30.0) sec Sodium (137-145) mmol/L Potassium (3.5-5.1) mmol/L Chloride (98-107) mmol/L Carbon Dioxide (22-30) mmol/L Anion Gap mmol/L BUN (7-17) mg/dL Creatinine (0.52-1.04) mg/dL Est GFR (CKD-EPI)AfAm (>60 ml/min/1.73 sqM) Est GFR (CKD-EPI)NonAf (>60 ml/min/1.73 sqM) Glucose (74-99) mg/dL Plasma Lactic Acid [place] 1.4 (0.7-2.0) mmol/L Calcium (8.4-10.2) mg/dL Magnesium (1.6-2.3) mg/dL Total Bilirubin (0.2-1.3) mg/dL AST (14-36) U/L ALT (9-52) U/L Alkaline Phosphatase (38-126) U/L Troponin I 0.014 (0.000-0.034) ng/mL Total Protein (6.3-8.2) g/dL Albumin (3.5-5.0) g/dL Urine Color Urine Appearance (Clear) Urine pH (5.0-8.0) Ur Specific [place] (1.001-1.035) Urine Protein (Negative) Urine Glucose (UA) (Negative) Urine Ketones (Negative) Urine Blood (Negative) Urine Nitrite (Negative) Urine Bilirubin (Negative) Urine Urobilinogen (<2.0) mg/dL Ur Leukocyte Esterase (Negative) Urine RBC (0-5) /hpf Urine WBC (0-5) /hpf Ur Squamous Epith Cells (0-4) /hpf Urine Bacteria (None) /hpf Disposition Clinical Impression: Pneumonia Disposition: ADMITTED IP TO THIS HOSP Referrals: Javad Koroma MD [Primary Care Provider] - 1-2 days Time of Disposition: 19:26
[2019-06-23 16:20] LABS: Appearance,Urine Cloudy (Clear); Bacteria,Urine Many /hpf; Bilirubin,Urine Negative (Negative); Blood,Urine Moderate (Negative); Color,Urine Light Orange; Glucose,Urine (UA) Negative (Negative); Ketones,Urine Negative (Negative); Leukocyte Esterase,Urine Small (Negative); Nitrite,Urine Negative (Negative); PH, Urine 5.5 (5.0-8.0); Protein,Urine 1+ (Negative); RBC,Urine 7 /hpf (0-5); Specific Gravity,Urine 1.031 (1.001-1.035); Squamous Epithelial Cell,Urine 5 /hpf (0-4)
[2019-06-23 17:14] LABS: HGB 14.4 gm/dL (11.4-16.0); MCH 28.8 pg (25.0-35.0); MCV 90.1 fL (80.0-100.0); Mean Platelet Volume 7.5; Platelet Count 154 k/uL (150-450); RBC 4.99 m/uL (3.80-5.40); RDW 15.8 % (11.5-15.5); WBC 21.6 k/uL (3.8-10.6)
[2019-06-23 17:17] LABS: INR 1.1 (<1.2); Partial Thromboplastin Time 52.1 sec (22.0-30.0); Prothrombin Time 11.3 sec (9.0-12.0)
--- NOTE | 2019-06-23 17:24 | XR ---
EXAMINATION TYPE: XR chest 2V DATE OF EXAM: 06/23/2019 COMPARISON: NONE HISTORY: Weakness TECHNIQUE: Frontal and lateral views of the chest are obtained. FINDINGS: Heart is normal. There is right central venous catheter with the tip in the superior vena cava. There is some mild linear density left lower lobe. There is no heart failure. There is some denisse nting of the posterior costophrenic angles. IMPRESSION: Small pleural effusions. Mild atelectasis and infiltrate left lung base. No heart failur e seen.
[2019-06-23 17:48] LABS: Lymphocytes # (M) 8.64 k/uL (1.0-4.8); Monocytes # (M) 0.22 k/uL (0-1.0); Neutrophils # (M) 12.74 k/uL (1.3-7.7); Neutrophils % (M) 59 %; Nucleated Red Blood Cells 0 /100 WBC (0-0); Total Cells Counted 100
[2019-06-23 17:54] LABS: ALT 139 U/L (9-52); AST 441 U/L (14-36); African American GFR (CKD) >90 (>60 ml/min/1.73 sqM); Albumin 2.7 g/dL (3.5-5.0); Alkaline Phosphatase 148 U/L (38-126); Anion Gap 7 mmol/L; Blood Urea Nitrogen 37 mg/dL (7-17); Calcium 7.9 mg/dL (8.4-10.2); Carbon Dioxide 23 mmol/L (22-30); Chloride 106 mmol/L (98-107); Glucose 91 mg/dL (74-99); Magnesium 2.2 mg/dL (1.6-2.3); Non-African American GFR(CKD) 90 (>60 ml/min/1.73 sqM); Potassium 3.8 mmol/L (3.5-5.1); Sodium 136 mmol/L (137-145); Total Bilirubin 1.3 mg/dL (0.2-1.3); Total Protein 5.4 g/dL (6.3-8.2)
[2019-06-23] MEDS ORDERED: PNEUMONIA PROTOCOL UTILIZED 1 EACH MISC PO PRN (19:26)
[2019-06-23] MEDS ORDERED: AZITHROMYCIN 500 MG in SODIUM CHLORIDE 0.9% 250 ML IVPB STA (19:26)
[2019-06-23] MEDS ORDERED: ALPRAZolam 0.25 MG TAB PO PRN (20:51)
--- NOTE | 2019-06-23 21:13 | P.HPIM ---
History of Present Illness H&P Date: 06/23/19 Chief Complaint: Generalized weakness, productive cough, urinary incontinence 74-year-old female with metastatic melanoma, hypertension, recent history of DVT left lower extremity currently on Eliquis Patient comes in today with 5 day history of urinary incontinence with worsening symptoms today she was having urinary retention and worsening low back pain described it as sharp pain short lived not related to activity, denies any nausea vomiting denies any fever but reports chills. She reports that the symptoms are similar to a recent history of kidney stones that she had. For which she decided come to the hospital today She also reports generalized weakness and malaise, she was recently diagnosed with melanoma 1.5 years ago then was diagnosed with metastasis she is been on chemotherapy for the past few weeks off-and-on due to intolerance. She restarted her cycle of chemotherapy one and a half weeks ago. Since then she's been feeling generalized malaise and progressive fatigue. She reports that over the weekend she started having productive cough with yellowish greenish sputum, and some component of pleuritic chest pain with strong bouts of coughing. Patient reports history of recurrent pneumonia in the past. Patient was hospitalized 3 weeks ago for dehydration and intolerance of chemotherapy. Patient reports recent diagnosis of left lower extremity DVT for which she is taking Eliquis. Otherwise denies any sick contacts or recent traveling denies any recent surgeries. Patient denies any GI bleeding. In the ED workup showed elevated white count however she reports that she was on a tapering dose of steroids since her last discharge from the hospital. Denies any history of COPD. She is not sure why she was on steroids She was also found to have elevated liver enzymes, she reports metastasis to the liver Chest x-ray showed possible small left lower lobe infiltrates Urinalysis was contaminated with 5 squamous epithelial cells, showed some moderate blood Review of Systems Pertinent positives as noted in HPI. All other systems were reviewed and are negative Past Medical History Past Medical History: Cancer, Hyperlipidemia, Hypertension, Pneumonia Additional Past Medical History / Comment(s): metatastic melanoma dx 2018 History of Any Multi-Drug Resistant Organisms: None Reported Past Surgical History: Bladder Surgery, Hernia Repair, Hysterectomy, Orthopedic Surgery Additional Past Surgical History / Comment(s): tumor removal ight breast Past Anesthesia/Blood Transfusion Reactions: No Reported Reaction Past Psychological History: No Psychological Hx Reported Smoking Status: Never smoker Past Alcohol Use History: None Reported Past Drug Use History: None Reported - Past Family History Family Additional Family Medical History / Comment(s): Denies history of cancer Medications and Allergies Home Medications Medication Instructions Recorded Confirmed Type Meloxicam [Mobic] 7.5 mg PO BID 06/08/19 06/23/19 History Nortriptyline [Pamelor] 10 mg PO HS 06/08/19 06/23/19 History Nystatin-Triamcinolone Oint 1 applic TOPICAL BID PRN 06/08/19 06/23/19 History [Mycolog 100,000-0.1 Unit/gm-% Oint] Omeprazole 20 mg PO DAILY 06/08/19 06/23/19 History Prochlorperazine [Compazine] 10 mg PO Q6H PRN 06/08/19 06/23/19 History Sertraline [Zoloft] 100 mg PO BID 06/08/19 06/23/19 History Tafinlar 75mg Capsule 150 mg PO Q12H 06/08/19 06/23/19 History Trametinib Dimethyl Sulfoxide 2 mg PO DAILY 06/08/19 06/23/19 History [Mekinist] amLODIPine BESYLATE [Norvasc] 2.5 mg PO DAILY 06/08/19 06/23/19 History Sennosides [Senokot] 8.6 mg PO BID 30 Days #60 tab 06/11/19 06/23/19 Rx Apixaban [Eliquis] See Taper PO DAILY 06/23/19 06/23/19 History HYDROcodone/APAP 5-325MG [[place] 1 tab PO Q4HR PRN 06/23/19 06/23/19 History 5-325] Allergies Allergy/AdvReac Type Severity Reaction Status Date / Time ciprofloxacin [From Cipro] Allergy Hallucinati Verified 06/23/19 15:41 ons Penicillins Allergy Unknown Verified 06/23/19 15:41 Childhood Physical Exam Vitals: Vital Signs Temp Pulse Resp BP Pulse Ox 06/23/19 18:11 97 18 114/76 94 L 06/23/19 15:39 97.7 F 108 H 22 113/79 96 Intake and Output 06/23/19 06/23/19 06/23/19 06:59 14:59 22:59 Output Total 58 Balance -58 Output: Post Void Residual 58 Other: Weight 75.296 kg Constitutional: No acute distress, conversant, pleasant Eyes: Anicteric sclerae, moist conjunctiva, no lid-lag Pupils equal round reactive to light ENMT: NC/AT Oropharynx clear, no erythema, exudates Neck: Supple, FROM, no masses, or JVD No carotid bruits No thyromegaly Lungs: Clear to auscultation Clear to percussion Normal respiratory effort, no accessory muscle use Cardiovascular: Heart regular in rate and rhythm, No murmurs, gallops, or rubs No peripheral edema Abdominal: Soft, tenderness upon percussion of the left costovertebral angle Nontender, no guarding, rebound or rigidity Abdomen moving with respiration Normoactive bowel sounds No hepatomegaly, No splenomegaly No palpable mass No abdominal wall hernia noted Skin: Healthy scar from prior surgery over the back between shoulders blades Normal temperature, tone, texture, turgor No induration No subcutaneous nodules No rash, lesions No ulcers Extremities: No digital cyanosis No clubbing Pedal pulses intact and symmetrical Radial pulses intact and symmetrical No calf tenderness Psychiatric: Alert and oriented to person, place and time Appropriate affect fair judgement Neuro Muscles Strength 5/5 in all 4 extremities Sensation to light touch grossly present throughout Cranial nerves II-XII grossly intact No focal sensory deficits Lymphatics: no palpable cervical or supraclavicular , or inguinal lymph nodes Results CBC & Chem 7: 06/23/19 16:25 06/23/19 16:25 Labs: Abnormal Lab Results - Last 24 Hours (Table) 06/23/19 06/23/19 06/23/19 Range/Units 16:02 16:25 16:25 WBC 21.6 H (3.8-10.6) k/uL RDW 15.8 H (11.5-15.5) % Neutrophils # (Manual) 12.74 H (1.3-7.7) k/uL Lymphocytes # (Manual) 8.64 H (1.0-4.8) k/uL APTT (22.0-30.0) sec Sodium 136 L (137-145) mmol/L BUN 37 H (7-17) mg/dL Calcium 7.9 L (8.4-10.2) mg/dL AST 441 H (14-36) U/L ALT 139 H (9-52) U/L Alkaline Phosphatase 148 H (38-126) U/L Total Protein 5.4 L (6.3-8.2) g/dL Albumin 2.7 L (3.5-5.0) g/dL Urine Appearance Cloudy H (Clear) Urine Protein 1+ H (Negative) Urine Blood Moderate H (Negative) Ur Leukocyte Esterase Small H (Negative) Urine RBC 7 H (0-5) /hpf Urine WBC 13 H (0-5) /hpf Ur Squamous Epith Cells 5 H (0-4) /hpf Urine Bacteria Many H (None) /hpf 06/23/19 Range/Units 16:25 WBC (3.8-10.6) k/uL RDW (11.5-15.5) % Neutrophils # (Manual) (1.3-7.7) k/uL Lymphocytes # (Manual) (1.0-4.8) k/uL APTT 52.1 H (22.0-30.0) sec Sodium (137-145) mmol/L BUN (7-17) mg/dL Calcium (8.4-10.2) mg/dL AST (14-36) U/L ALT (9-52) U/L Alkaline Phosphatase (38-126) U/L Total Protein (6.3-8.2) g/dL Albumin (3.5-5.0) g/dL Urine Appearance (Clear) Urine Protein (Negative) Urine Blood (Negative) Ur Leukocyte Esterase (Negative) Urine RBC (0-5) /hpf Urine WBC (0-5) /hpf Ur Squamous Epith Cells (0-4) /hpf Urine Bacteria (None) /hpf Assessment and Plan Assessment: 74-year-old female with active metastatic melanoma, currently on chemotherapy. Presented due to productive cough and urinary incontinence then retention concerning for UTI versus kidney stones. Patient admitted as an inpatient with anticipated length of stay more than 2 midnights for treatment of healthcare associated pneumonia, await computed tomography scan of the abdomen without contrast to rule out any kidney stones. Supportive care and IV fluid hydration. Plan: Sepsis secondary to underlying healthcare associated pneumonia Healthcare associated pneumonia Follow-up cultures Empiric antibiotics with Rocephin and azithromycin Supportive care IV fluid hydration Patient has elevated white count however she does report that she was up until recently on a tapering dose of steroid but she doesn't know what was the exact indication Urinary retention, rule out passing kidney stones Check CT of the abdomen IV fluid hydration Pain control with Toradol and opiates Chronic conditions Metastatic melanoma Elevated liver enzymes secondary to metastasis to the liver Moderate protein calorie malnutrition Hypertension Hyperlipidemia Recent diagnosis of left lower extremity DVT Continue home meds Preformed a thorough record review from recent hospitalization she was recently hospitalized 3 weeks ago for generalized malaise and weakness after initiating chemotherapy GI prophylaxis PPIs CODE STATUS: Full code DVT prophylaxis: Patient on Eliquis Discussed with: Patient, ER Anticipated length of stay more than [address]: home A total of 60 minutes was spent on the care of this complex patient more than 50% of the time was spent in counseling and care coordination.
[2019-06-23 22:44] VITALS: BMI 29.8
[2019-06-23] MEDS: KETOROLAC 30 MG/ML 1 ML VIAL IVP PRN (22:54)
[2019-06-23] MEDS: APIXABAN 5 MG TAB PO SCH (22:58)
[2019-06-23] MEDS: SERTRALINE 100 MG TAB PO SCH (22:58)
[2019-06-23] MEDS: SENNOSIDES 8.6 MG TAB PO SCH (22:58)
[2019-06-23] MEDS: NORTRIPTYLINE 10 MG CAP PO SCH (22:58)
[2019-06-23] MEDS: SODIUM CHLORIDE 0.9% 1,000 ML IV SCH (23:04)
[2019-06-24] MEDS: KETOROLAC 30 MG/ML 1 ML VIAL IVP PRN ×3 (05:01→21:06)
[2019-06-24 07:27] LABS: Basophils % (A) 0 %; Eosinophils % (A) 0 %; HCT 39.2 % (34.0-46.0); HGB 12.2 gm/dL (11.4-16.0); Lymphocytes % (A) 23 %; MCH 28.2 pg (25.0-35.0); MCV 90.9 fL (80.0-100.0); Monocytes # (A) 0.9 k/uL (0-1.0); Monocytes % (A) 5 %; Neutrophils # (A) 12.6 k/uL (1.3-7.7); Neutrophils % (A) 71 %; Platelet Count 138 k/uL (150-450); RBC 4.32 m/uL (3.80-5.40); RDW 15.8 % (11.5-15.5); WBC 17.8 k/uL (3.8-10.6)
--- NOTE | 2019-06-24 07:31 | XR ---
EXAMINATION TYPE: XR chest 2V DATE OF EXAM: 06/24/2019 COMPARISON: 06/23/2019 HISTORY: Pneumonia. TECHNIQUE: Frontal and lateral views of the chest are obtained. FINDINGS: Right-sided Mediport terminates in the superior vena cava. Diffuse interstitial prominence is slightly more pronounced than on the prior. Bulbous contour of the minor fissure likely relates t o a trace amount of intrafissural fluid. There is blunting of the costophrenic angle on the left rela mattie to trace pleural effusion. Slight improved aeration of the retrocardiac airspace. Surgical clips are seen within the left axillary soft tissues. Osseous structures are generally demineralized. IMPRESSION: Improved left basilar opacity. Trace left pleural effusion remains with mild diffuse int erstitial prominence.
[2019-06-24 07:53] LABS: ALT 130 U/L (9-52); AST 337 U/L (14-36); African American GFR (CKD) >90 (>60 ml/min/1.73 sqM); Albumin 2.2 g/dL (3.5-5.0); Alkaline Phosphatase 132 U/L (38-126); Anion Gap 3 mmol/L; Blood Urea Nitrogen 34 mg/dL (7-17); Calcium 7.4 mg/dL (8.4-10.2); Carbon Dioxide 26 mmol/L (22-30); Chloride 107 mmol/L (98-107); Glucose 100 mg/dL (74-99); Non-African American GFR(CKD) 89 (>60 ml/min/1.73 sqM); Sodium 136 mmol/L (137-145); Total Bilirubin 0.9 mg/dL (0.2-1.3); Total Protein 4.5 g/dL (6.3-8.2)
--- NOTE | 2019-06-24 08:09 | CT ---
EXAMINATION TYPE: CT abdomen pelvis wo con DATE OF EXAM: 06/24/2019 HISTORY: Left flank pain rule out kidney Stone. History of metastatic melanoma. CT DLP: 565.2 mGycm. Automated Exposure Control for Dose Reduction was Utilized. TECHNIQUE: CT scan of the abdomen and pelvis is performed without oral or IV contrast. COMPARISON: PET/CT March 21, 2019. CTA chest June 08, 2019. FINDINGS: Within the limitations of a non-contrast study, the following observations are made. LUNG BASES: Correlating with recent CTA chest study there are new bilateral suspicious nodules in the lung bases consistent with metastatic disease. There is small left and tiny right pleural effusion. There is bibasilar linear scarring and/or atelectasis. LIVER/GB: There are innumerable heterogeneous hypodense lesions throughout the liver consistent with multiple metastatic foci. For reference is 2.8 cm lesion on long axis centrally and liver axial image 21. For reference is a 2.2 cm lesion posterior right hepatic lobe axial image 37. For reference is 3 .4 cm right hepatic lobe lesion inferiorly axial image 58. PANCREAS: No significant abnormality is seen. SPLEEN: Marked splenomegaly occupying majority of the left upper to mid abdomen measuring 19.8 cm precision aircraft systems assembler niocaudal dimension coronal image 38 with innumerable heterogeneous hypodense metastatic lesions. For reference 6.6 cm lesion posterior upper spleen axial image 28. For reference 3.6 cm anterior upper s plenic lesion axial image 31. ADRENALS: New bilateral adrenal heterogeneous hyperdense masses measuring 3.8 x 3.4 cm size image 43 and left slightly larger at 4.3 x 3.9 cm same image. KIDNEYS: There is prominent right renal pelvis with mild calyceal dilatation similar to prior PET/CT consistent with mild hydronephrosis and extrarenal pelvis. No obstructing mass or calculus seen. No h ydroureter. Left kidney redemonstrates cortical thinning upper pole left kidney shows heterogeneous hyperdense ar ea just posterior to the adrenal mass axial image 53 could reflect metastatic lesion or hemorrhage. N o renal calculi bilaterally. The left-sided hydronephrosis. BOWEL: No suspicious small or large bowel dilatation. Stomach is poorly distended and thus suboptimal ly evaluated. GENITAL ORGANS: Uterus is surgically absent or markedly atrophic. Small amount of free fluid in the p gabbi axial image 117 extending to right of midline at LYMPH NODES: No greater than 1cm abdominal or pelvic lymph nodes are appreciated. OSSEOUS STRUCTURES: Facet arthropathy lower lumbar levels. Multilevel mild spurring in the thoracolum bar spine. OTHER: Mild to moderate calcified plaque of the aorta extends into the iliac branch vessels. IMPRESSION: 1. Confirmation of new splenomegaly since March 21 PET/CT with metastatic disease progression in the lungs, liver, and spleen. New adrenal hyperdense enlargement or masses likely reflects metastatic pr ogression. Adrenal hemorrhage is not entirely excluded. 2. No renal calculi bilaterally. No new left-sided hydronephrosis. No hyperdense area superior aspect left renal cortex favors metastatic melanoma, hemorrhage at this level cannot be excluded. Correlation with active hemoglobin monitoring advised. If there is concern for active hemorrhage dire ct catheter angiogram or multi phase CTA study could be performed to further evaluate.
[2019-06-24] MEDS ORDERED: APIXABAN 5 MG TAB PO SCH (09:00)
[2019-06-24] MEDS: APIXABAN 5 MG TAB PO SCH ×2 (09:23→21:04)
[2019-06-24] MEDS: SENNOSIDES 8.6 MG TAB PO SCH ×2 (09:23→21:03)
[2019-06-24] MEDS: PANTOPRAZOLE 40 MG TABLET PO SCH (09:23)
[2019-06-24] MEDS: SERTRALINE 100 MG TAB PO SCH ×2 (09:23→21:04)
[2019-06-24] MEDS: SODIUM CHLORIDE 0.9% 1,000 ML IV SCH ×2 (09:23→17:40)
[2019-06-24] MEDS: amLODIPine 2.5 MG TAB PO SCH (09:27)
[2019-06-24] MEDS: MORPHINE SULFATE 2 MG/ML SYRINGE IVP PRN (09:28)
--- NOTE | 2019-06-24 12:59 | CONS ---
CONSULTATION This is a 74-year-old female with a past medical history positive for metastatic melanoma. She has lesions from her melanoma in her kidneys, liver, spleen, and lung. She apparently started chemotherapy more than a year ago with Opdivo. Apparently that did not do the job and she was started on a new chemotherapeutic agents including Tafinlar and Mekinist. She apparently started these chemo agents recently. She had her first treatment about a month ago and became sick and apparently was admitted to the hospital. She became very weak. She was found to have a DVT in the left leg at that time. Apparently, the drugs were withdrawn and she was started on lower doses of both drugs and she is back in the hospital right now, not feeling well. The patient apparently complained of weakness and just not feeling herself. She really could not be more specific. She did have some nausea and dry heaves. She was apparently having some urinary incontinence and burning on urination, was thought to have a possible urinary tract infection. She did have some mild shortness of breath. She denies any chest pain or chest discomfort. The patient is currently in the hospital, resting comfortably. We saw her today in consultation. CURRENT MEDICATIONS: Include Mobic, Pamelor, nystatin, triamcinolone ointment, omeprazole, Compazine, Zoloft, Tafinlar, Mekinist, amlodipine, Eliquis, [place] and Senokot. ALLERGIES: CIPROFLOXACIN and PENICILLIN. PAST MEDICAL HISTORY: Positive for metastatic melanoma, hyperlipidemia, hypertension, and pneumonia. The melanoma was diagnosed in 2018. She has got metastatic disease to the liver, kidneys, spleen, and lung. SURGICAL HISTORY: Includes bladder surgery, hernia repair, hysterectomy, tumor removed from the right breast, and some orthopedic procedures. SOCIAL HISTORY: Significant that she is a lifelong nonsmoker. Denies any alcohol or illicit drug use. FAMILY HISTORY: Noncontributory. Mother and father apparently reasonably healthy. REVIEW OF SYSTEMS: CONSTITUTIONAL: Weakness, decreased appetite. NEUROLOGIC: Negative. HEENT: Negative. CARDIOVASCULAR: Negative. PULMONARY: Mild shortness of breath. GI: Nausea, vomiting. : Burning on urination, pain on urination,. RHEUMATOLOGIC: Negative. IMMUNOLOGIC: Negative. ENDOCRINOLOGIC: Negative. DERMATOLOGIC: Negative. Current vital signs are reviewed, temperature is 98, heart rate is 85, respiratory rate 16, blood pressure 136/89 mean 104 and 2 L saturation 95%. Appears in no acute distress. Mild conversational dyspnea. No audible wheezing. No use of accessory muscles. HEENT: Examination is grossly unremarkable. Mucous membranes are moist. No oral lesions. NECK: Supple. Full range of motion. No adenopathy or thyromegaly. Neck veins are flat. CARDIOVASCULAR: Examination reveals regular rhythm and rate. Heart rate 85. It is regular. S1, S2 normal. No murmur. LUNGS: A few scattered mild rhonchi. No wheezes or crackles. Breath sounds are pretty equal bilaterally. ABDOMEN: Soft bowel sounds are heard. EXTREMITIES:: Intact. No cyanosis, clubbing, or edema. SKIN: Without rash. NEUROLOGIC: Examination is brief but nonfocal. She does have a large incision on the back from melanoma surgery. LABS: Reviewed. White count 17.8, hemoglobin 12.2, hematocrit 39.2, platelet count 138,000 PT, INR normal. PTT 52.1. Sodium 136, potassium 4, chloride 107, CO2 is 26. BUN and creatinine were 34 and 0.65. AST 337, ALT 130, alk phosphatase 132, albumin 2.2. Urine is light orange and cloudy, 1+ protein, moderate blood, small leukocyte esterase, 7 RBCs, 13 WBCs and many bacteria. A chest. Chest x-ray on the day of admission admits to some infiltrate or and/or atelectasis at the left lung base. A repeat chest x-ray on the again shows minimal infiltrate or atelectasis at the left lung base. In my opinion, the chest x-ray is slightly improved. Abdominal and pelvic CT shows soft new splenomegaly with metastatic disease. Lung, liver and spleen. There also may be adrenal metastasis. Current medications are reviewed. They seem relatively appropriate. She is getting both Zithromax and Rocephin for her urinary tract infection and lung possible pneumonia. The rest of her medications look appropriate. ASSESSMENT: 1. Urinary tract infection/urosepsis. 2. Probable pneumonia left lower lobe. 3. Metastatic melanoma with lesions in the lung, liver, spleen, kidneys, and adrenal glands. 4. Recent diagnosis of left lower extremity deep venous thrombosis. 5. Hyperlipidemia. 6. Hypertension. 7. History of pneumonia. PLAN: The patient's overall prognosis remains guarded. She is on appropriate medications. Will continue to follow. Chest x-ray is actually improved. Clinically, she does not look bad. She does admit to very mild shortness of breath. Additional recommendations and suggestions are forthcoming. She should have urine and blood cultures. Will continue to follow. MMRENEEL / IJN: [id number] /
[2019-06-24] MEDS ORDERED: IPRATROPIUM-ALBUTEROL 3 ML NEB INHALATION PRN (13:49)
[2019-06-24] MEDS: PROCHLORPERAZINE 10 MG TAB PO PRN (14:14)
[2019-06-24] MEDS: AZITHROMYCIN 500 MG TAB PO SCH (18:03)
--- NOTE | 2019-06-24 18:30 | P.PN ---
Subjective Progress Note Date: 06/24/19 Principal diagnosis: Sepsis Patient was seen and examined. No acute events overnight. Patient reports shortness of breath, similar to yesterday. She denies any chest pain or palpi tations. No nausea or vomiting, no fever or chills. Objective - Vital Signs Vital signs: Vital Signs Temp 97.8 F 06/24/19 11:58 Pulse 94 06/24/19 16:31 Resp 24 06/24/19 13:25 BP 137/81 06/24/19 11:58 Pulse Ox 95 06/24/19 13:30 Intake & Output 06/23/19 06/24/19 06/24/19 18:59 06:59 18:59 Intake Total 1390 800 Output Total 58 Balance -58 1390 800 Weight 75.296 kg 78.517 kg Intake: Intake, IV Titration 800 800 Amount Sodium Chloride 0.9% 1, 800 750 000 ml @ 100 mls/hr IV . Q10H MARU Rx#:[id number] cefTRIAXone 2 gm In 50 Sodium Chloride 0.9% 50 ml @ 100 mls/hr IVPB ONCE STA Rx#:[id number] Oral 590 Output: Post Void Residual 58 Other: Voiding Method Incontinent Incontinent # Voids 2 - Exam General: [non toxic], [no distress], [appears at stated age] Derm: [warm], [dry] Head: [atraumatic], [normocephalic], [symmetric] Eyes: [EOMI], [no lid lag], [anicteric sclera] Mouth: [no lip lesion], [mucus membranes moist] Cardiovascular: [S1S2 reg], [no murmur], [positive posterior tibial pulse bilateral], Lungs: [decreased breath sounds bilateral], [no rhonchi, no rales] , [no accessory muscle use] Abdominal: [soft], [ nontender to palpation], [no guarding], [no appreciable organomegaly] Ext: [no gross muscle atrophy], [no edema], [no contractures] Neuro: [no focal neuro deficits] Psych: [Alert], [oriented], [appropriate affect] - Labs CBC & Chem 7: 06/24/19 06:54 06/24/19 06:54 Labs: Abnormal Lab Results - Last 24 Hours (Table) 1106/23/19 06/24/19 Range/Units 16:25 16:25 06:54 WBC 17.8 H (3.8-10.6) k/uL RDW 15.8 H (11.5-15.5) % Plt Count 138 L (150-450) k/uL Neutrophils # 12.6 H (1.3-7.7) k/uL Neutrophils # (Manual) 12.74 H (1.3-7.7) k/uL Lymphocytes # (Manual) 8.64 H (1.0-4.8) k/uL Sodium 136 L (137-145) mmol/L BUN 37 H (7-17) mg/dL Glucose (74-99) mg/dL Calcium 7.9 L (8.4-10.2) mg/dL AST 441 H (14-36) U/L ALT 139 H (9-52) U/L Alkaline Phosphatase 148 H (38-126) U/L Total Protein 5.4 L (6.3-8.2) g/dL Albumin 2.7 L (3.5-5.0) g/dL 06/24/19 Range/Units 06:54 WBC (3.8-10.6) k/uL RDW (11.5-15.5) % Plt Count (150-450) k/uL Neutrophils # (1.3-7.7) k/uL Neutrophils # (Manual) (1.3-7.7) k/uL Lymphocytes # (Manual) (1.0-4.8) k/uL Sodium 136 L (137-145) mmol/L BUN 34 H (7-17) mg/dL Glucose 100 H (74-99) mg/dL Calcium 7.4 L (8.4-10.2) mg/dL AST 337 H (14-36) U/L ALT 130 H (9-52) U/L Alkaline Phosphatase 132 H (38-126) U/L Total Protein 4.5 L (6.3-8.2) g/dL Albumin 2.2 L (3.5-5.0) g/dL Microbiology - Last 24 Hours (Table) 06/23/19 16:02 Urine Culture - Preliminary Urine,Voided Assessment and Plan Assessment: Assessment and plan Sepsis related to UTI Possible pneumonia left lower lobe Recent diagnosis of left lower extremity DVT Chronic conditions: Metastatic melanoma, elevated liver enzymes due to metastasis to the liver, protein calorie malnutrition moderate, hypertension, dyslipidemia Patient meets sepsis criteria. Leukocytosis. Tachycardia. Positive source of infection. UA shows moderate leukocyte esterase. CT abdomen and pelvis shows metastatic disease progression along with hyperdense enlargement of the adrenal gland, likely metastatic progression, hemorrhage not excluded. Plans: Follow blood culture. Follow urine culture. Start Rocephin for treatment a UTI. Continue normal saline at 100 mL/h. As seen on chest x-ray. Plans: Continue Rocephin and add azithromycin for atypical coverage. Follow sputum culture. DuoNeb as needed for shortness of breath and wheezing. Follow pulmonology consultation. Plans: Resume Eliquis. Consult oncology for continuation of management of metastatic melanoma. [Patient being treated for sepsis likely related to UTI along with continuation of left lower lobe pneumonia. She is on IV antibiotics. She is pending clinical improvement. Likely DC in 2-3 days.]
--- NOTE | 2019-06-24 18:44 | P.CONS ---
History of Present Illness - Reason for Consult Consult date: 06/24/19 met melanoma Requesting physician: Santiago Ball - Chief Complaint oliguria, weakness - History of Present Illness Patient was seen in the office yesterday after 1 week of resuming just tafinlar, mekinist dose was reduced and being held for at least 1-2 weeks. She had complaints of oliguria, dysuria, incontinence of urine, progressive, generalized weakness and poor oral intake. Offered some outpatient treatment options but ultimately it was decided in patient's best interest that she be sent to the emergency room. Since admission patient has been receiving IV fluids, antibiotics with improvement in some of her symptoms, she is requesting some better pain control. Her pain seems to be mostly around the abdomen in the back, rather persistent, not progressive, aching, positioning doesn't help a little bit, when the pain is controlled she can move around better. She has no other physical complaints at this time on a 10 point review of systems Past medical/malignancy history: Found to have a suspicious lesion on the right upper back and underwent excision on 05/15/18. she had first noticed a "growth" around 07/21. This had slowly grown in size, and by 04/22 was causing symptoms like increasing and mild discomfort. This revealed malignant melanoma, 16 mm with tumor extending to the deep margin. Tumor was 1.9 cm, with mitosis/millimeter square, with ulceration. The patient was referred to the [facility], and had wide excision with sentinel node biopsy on 07/10/18. Section and nodes were localize to the right axilla, and 3 of 3 were involved. She had staging workup on 07/22/[address] of the chest abdomen and pelvis and MRI of the brain revealing no distant metastasis. Scattered subcentimeter nodules was seen in the lung, along with conglomerate right axillary mass measuring 5.9 x 4.1 cm and left axillary pamela mass measuring 3.7 x 2.6 cm. The patient then underwent bilateral axillary node dissection on 08/06/18. On the right melanoma was noted in 1/12 lymph nodes with no extranodal extension. On the left 9 lymph nodes were negative. Her tumor was BRAF V600 positive. Seen by oncology at the [facility]. She was staged as stage IIIc, pT4 b N 3b. Adjuvant therapy was recommended, with Nivolumab preferr ed, versus Dabrafenib + Trametinib combination based on side effect profile. She desired Tx closer to home so, she was seen by Dr. Morocho. Opdivo was planned, but delayed as the pt could not get her restaging CT scans and brain MRI done till 10/30/18. She was supposed to start on 11/07/18. CT scans however showed subq nodules in the rt posterior chest wall area 1 x 0.7 and 1 x 0.8. A 4.9 cm density was noted in the rt axilla and a 2.4 cm density in the left axilla. PET confirmed a 9 mm subcutaneous mass just inferior and lateral to the right scapula, with SUV of 3.71. Another mass was noted in the right upper back along the superior aspect of the scapula, about 1 cm, which was suspicious in appearance but ametabolic. She was seen back at [facility], case d/w Dr Salguero, recommended she proceed with Opdivo, and be reassessed for possible resection down the line depending on response. Started opdivo on 12/19/18 s/p 7 cycles. She has noted an increase in size of the mass overlying the rt scapula, with mild soreness. She has also felt a new nodule on her RUE, MRI repeated on 03/12/19 as the pt was c/o dizziness, showed stable white matter changes. On clinical exam, the right upper back mass seemed to show progressive increase in size. PET 03/21/19, revealed increase in size of the right upper back mass with elevated SUV, right midback lesion larger in size at 1.8 cm, also PET positive, bilateral lung nodules were noted, some new, with at least some showing increase in size from before. Lung nodules are however not PET avid. 3.5 cm indeterminate lesion was seen in the spleen, as well as a questionable focus of uptake in the central portion of the liver. Case was d/w [facility], and it was decided to continue for 2 more cycles, to r/o pseudoprogression. CT 05/20/19 however, confirms progression with multiple bilateral lung nodules at least 20, new subcutaneous nodules, as well as metastatic lesions now seen in the liver, bilateral adrenal glands, and spleen. Started on Tafinlar-Mekinist, on regimen for just about a week when seen in the office on 06/08/19. She had multiple complaints, including subjective fevers, increased shortness of breath, increasing generalized weakness as well as intermittent nausea and occasional vomiting. She was noted to have lower extremity swelling, doppler and CTA done, left lower extremity DVT extending from the popliteal into the calf veins, CTA was negative for PE, but did show bilateral ground glass opacities suspicious for pneumonitis, in addition to the metastatic lung nodules. The scan also mention progression of adrenal metastasis and liver metastasis but was compared to the PET scan done in 03/23 and not the most recent CT scan from 05/23. In the office, liver enzymes also showed near doubling into the 200 range, compared to 90-100 on 05/20/19. Review of Systems 14 point review of systems is negative except as stated in HPI Past Medical History Past Medical History: Cancer, Deep Vein Thrombosis (DVT), Hyperlipidemia, Hypertension, Pneumonia, Rheumatoid Arthritis (RA) Additional Past Medical History / Comment(s): metatastic melanoma dx 2018 mets spleen, kidney, back, lung , presently DVT left leg History of Any Multi-Drug Resistant Organisms: None Reported Past Surgical History: Bladder Surgery, Hernia Repair, Hysterectomy, Orthopedic Surgery Additional Past Surgical History / Comment(s): tumor removal right breast, 3 knee replacements, T& A, tropean eye surgery Past Anesthesia/Blood Transfusion Reactions: No Reported Reaction Past Psychological History: No Psychological Hx Reported Smoking Status: Never smoker Past Alcohol Use History: None Reported Past Drug Use History: None Reported - Past Family History Father Family Medical History: Cancer Additional Family Medical History / Comment(s): lung cancer Mother Family Medical History: Cancer Additional Family Medical History / Comment(s): intestinal cancer Sister(s) Family Medical History: Cancer Additional Family Medical History / Comment(s): breast cancer Family Additional Family Medical History / Comment(s): Denies history of cancer Medications and Allergies Home Medications Medication Instructions Recorded Confirmed Type Meloxicam [Mobic] 7.5 mg PO BID 06/08/19 06/23/19 History Nortriptyline [Pamelor] 10 mg PO HS 06/08/19 06/23/19 History Nystatin-Triamcinolone Oint 1 applic TOPICAL BID PRN 06/08/19 06/23/19 History [Mycolog 100,000-0.1 Unit/gm-% Oint] Omeprazole 20 mg PO DAILY 06/08/19 06/23/19 History Prochlorperazine [Compazine] 10 mg PO Q6H PRN 06/08/19 06/23/19 History Sertraline [Zoloft] 100 mg PO BID 06/08/19 06/23/19 History Tafinlar 75mg Capsule 150 mg PO Q12H 06/08/19 06/23/19 History Trametinib Dimethyl Sulfoxide 2 mg PO DAILY 06/08/19 06/23/19 History [Mekinist] amLODIPine BESYLATE [Norvasc] 2.5 mg PO DAILY 06/08/19 06/23/19 History Sennosides [Senokot] 8.6 mg PO BID 30 Days #60 tab 06/11/19 06/23/19 Rx Apixaban [Eliquis] 5 mg PO BID 06/23/19 06/23/19 History HYDROcodone/APAP 5-325MG [Ayer 1 tab PO Q4HR PRN 06/23/19 06/23/19 History 5-325] Allergies Allergy/AdvReac Type Severity Reaction Status Date / Time ciprofloxacin [From Cipro] Allergy Hallucinati Verified 06/23/19 15:41 ons Penicillins Allergy Unknown Verified 06/23/19 15:41 Childhood Physical Exam Vitals: Vital Signs Temp Pulse Pulse Resp BP BP Pulse Ox 06/24/19 16:31 94 06/24/19 16:25 90 06/24/19 13:30 98 95 06/24/19 13:25 136 H 24 86 L 06/24/19 11:58 97.8 F 91 18 137/81 91 L 06/24/19 05:00 98.0 F 85 16 136/89 95 06/24/19 00:00 18 06/23/19 21:32 97.7 F 91 16 159/91 93 L 06/23/19 21:02 78 16 121/84 96 Intake and Output 06/24/19 06/24/19 06/24/19 06:59 14:59 22:59 Intake Total 1390 800 Balance 1390 800 Intake: Intake, IV Titration 800 800 Amount Sodium Chloride 0.9% 1, 800 750 000 ml @ 100 mls/hr IV . Q10H [facility] Rx#:[id number] cefTRIAXone 2 gm In 50 Sodium Chloride 0.9% 50 ml @ 100 mls/hr IVPB ONCE STA Rx#:[id number] Oral 590 Other: Voiding Method Incontinent Incontinent Incontinent # Voids 2 Weight 78.517 kg - Constitutional General appearance: average body habitus, cooperative, no acute distress - EENT Eyes: anicteric sclerae, EOMI ENT: hearing grossly normal, normal oropharynx - Neck Neck: lymphadenopathy - Respiratory Respiratory: bilateral: CTA, diminished, wheezing (few scattered) - Cardiovascular Rhythm: regular Heart sounds: normal: S1, S2 Abnormal Heart Sounds: systolic murmur, no diastolic murmur, no rub, no S3 Gallop, no S4 Gallop, no click, no other foot Peripheral Edema: bilateral: 1+ - Gastrointestinal General gastrointestinal: no absent bowel sounds, no decreased bowel sounds, no distended, no hepatomegaly, no hyperactive bowel sounds, normal bowel sounds, no organomegaly, no rigid, no scaphoid, soft, no splenomegaly, no tenderness, no umbilical hernia, no ventral hernia - Integumentary Integumentary: pale - Neurologic Neurologic: CNII-XII intact - Musculoskeletal Musculoskeletal: strength equal bilaterally - Psychiatric Psychiatric: A&O x's 3, appropriate affect, intact judgment & insight Results CBC & Chem 7: 06/24/19 06:54 06/24/19 06:54 Labs: Abnormal Lab Results - Last 24 Hours (Table) 06/24/19 06/24/19 Range/Units 06:54 06:54 WBC 17.8 H (3.8-10.6) k/uL RDW 15.8 H (11.5-15.5) % Plt Count 138 L (150-450) k/uL Neutrophils # 12.6 H (1.3-7.7) k/uL Sodium 136 L (137-145) mmol/L BUN 34 H (7-17) mg/dL Glucose 100 H (74-99) mg/dL Calcium 7.4 L (8.4-10.2) mg/dL AST 337 H (14-36) U/L ALT 130 H (9-52) U/L Alkaline Phosphatase 132 H (38-126) U/L Total Protein 4.5 L (6.3-8.2) g/dL Albumin 2.2 L (3.5-5.0) g/dL Microbiology - Last 24 Hours (Table) 06/23/19 16:02 Urine Culture - Preliminary Urine,Voided CT scan - abdomen: report reviewed CT scan - pelvis: report reviewed Assessment and Plan (1) UTI (urinary tract infection) Narrative/Plan: Cultures pending, suspected based on patient's presenting symptoms, antibiotics are ordered. Patient does have improved symptoms. Current Visit: Yes Status: Acute Priority: Medium Code(s): N39.0 - URINARY TRACT INFECTION, SITE NOT SPECIFIED SNOMED Code(s): 15276070 (2) Acute DVT (deep venous thrombosis) Narrative/Plan: continue anticoagulants as prescribed Current Visit: No Status: Acute Priority: High Code(s): I82.409 - ACUTE EMBOLISM AND THOMBOS UNSP DEEP VN UNSP LOWER EXTREMITY SNOMED Code(s): 681392264558627 (3) Metastatic melanoma Narrative/Plan: Reviewed with patient the concerning findings on the CT scan. There is evidence of progression. Unfortunately, patient has not even been able to tolerate her current regimen for even a week so, it has not even had a chance to work! Case was discussed with Dr. Pérez as well as Dr. Morocho. Discussed options for dose reduction (there are actually 2 more dose reductions possible on her current regimen) or changing to another treatment regimen that is available. I spoke with patient and she expressed that she would like to try reduced dose of her current regimen. This will be ordered for her. She will hold treatment until new dose received. Current Visit: No Status: Chronic Priority: High Code(s): C79.9 - SECONDARY MALIGNANT NEOPLASM OF UNSPECIFIED SITE SNOMED Code(s): 460494513 (4) Cancer related pain Narrative/Plan: Will work with patient's medications to get her on a long-acting and a short acting for breakthrough pain. Medications for prevention of narcotic-induced constipation. Current Visit: Yes Status: Acute Priority: High Code(s): G89.3 - NEOPLASM RELATED PAIN (ACUTE) (CHRONIC) SNOMED Code(s): 47918291385994 Plan: I highly recommended palliative care to the patient-symptom management during active treatment. Patient agreed with plan. Case discussed with Hvac/R Instructor
[2019-06-24] MEDS: IPRATROPIUM-ALBUTEROL 3 ML NEB INHALATION SCH (20:59)
[2019-06-24] MEDS ORDERED: MORPHINE SULFATE ER 15 MG TABLET PO SCH (21:00)
[2019-06-24] MEDS: NORTRIPTYLINE 10 MG CAP PO SCH (21:05)
[2019-06-25] MEDS: SODIUM CHLORIDE 0.9% 1,000 ML IV SCH ×2 (03:30→22:32)
[2019-06-25] MEDS: KETOROLAC 30 MG/ML 1 ML VIAL IVP PRN ×3 (05:58→21:17)
[2019-06-25 08:39] LABS: ALT 139 U/L (9-52); AST 407 U/L (14-36); African American GFR (CKD) >90 (>60 ml/min/1.73 sqM); Albumin 2.4 g/dL (3.5-5.0); Alkaline Phosphatase 141 U/L (38-126); Anion Gap 6 mmol/L; Blood Urea Nitrogen 27 mg/dL (7-17); Calcium 7.7 mg/dL (8.4-10.2); Carbon Dioxide 23 mmol/L (22-30); Chloride 107 mmol/L (98-107); Glucose 97 mg/dL (74-99); Non-African American GFR(CKD) >90 (>60 ml/min/1.73 sqM); Potassium 4.2 mmol/L (3.5-5.1); Sodium 136 mmol/L (137-145)
[2019-06-25] MEDS: IPRATROPIUM-ALBUTEROL 3 ML NEB INHALATION SCH ×4 (09:04→19:57)
[2019-06-25] MEDS: SERTRALINE 100 MG TAB PO SCH ×2 (09:31→21:18)
[2019-06-25] MEDS: SENNOSIDES 8.6 MG TAB PO SCH ×2 (09:31→21:18)
[2019-06-25] MEDS: PANTOPRAZOLE 40 MG TABLET PO SCH (09:31)
[2019-06-25] MEDS: amLODIPine 2.5 MG TAB PO SCH (09:31)
[2019-06-25] MEDS: APIXABAN 5 MG TAB PO SCH ×2 (09:31→21:18)
[2019-06-25] MEDS: MORPHINE SULFATE 2 MG/ML SYRINGE IVP PRN (13:52)
--- NOTE | 2019-06-25 14:14 | P.PN ---
Subjective Progress Note Date: 06/25/19 Principal diagnosis: Acute urinary tract infection, sepsis, left lower lobe pneumonia The patient is seen today 06/25/2019 in follow-up on the regular medical floor. She is awake and alert in no acute distress. She is feeling a bit stronger today compared to yesterday. She is maintaining O2 saturations in the 90s on 2 L/m per nasal cannula. She's afebrile. Hemodynamically stable. Urine culture is positive for gram-negative bacilli. Blood culture reveals no growth to date. Sodium 136. Potassium 4.2. Creatinine 0.55. AST 407, ALT 139, alk phos 141. She remains on DuoNeb inhalations, ceftriaxone and azithromycin. Objective - Vital Signs Vital signs: Vital Signs Temp 98.1 F 06/25/19 12:09 Pulse 91 06/25/19 12:21 Resp 16 06/25/19 12:09 BP 120/78 06/25/19 12:09 Pulse Ox 93 L 06/25/19 12:09 Intake & Output 06/24/19 06/25/19 06/25/19 18:59 06:59 18:59 Intake Total 800 740 Balance 800 740 Weight 80.428 kg Intake: Intake, IV Titration 800 150 Amount Sodium Chloride 0.9% 1, 750 150 000 ml @ 50 mls/hr IV . Q20H [facility] Rx#:[id number] cefTRIAXone 2 gm In 50 Sodium Chloride 0.9% 50 ml @ 100 mls/hr IVPB ONCE STA Rx#:[id number] Oral 590 Other: Voiding Method Incontinent Incontinent Incontinent # Voids 2 - Exam GENERAL EXAM: Alert, pleasant 74-year-old female patient, on 2 L nasal cannula,, comfortable in no apparent distress. HEAD: Normocephalic. EYES: Normal reaction of pupils, equal size. NOSE: Clear with pink turbinates. THROAT: No erythema or exudates. NECK: No masses, no JVD. CHEST: No chest wall deformity. LUNGS: Equal air entry with crackles in the left base. CVS: S1 and S2 normal with no audible murmur, regular rhythm. ABDOMEN: No hepatosplenomegaly, normal bowel sounds, no guarding or rigidity. SPINE: No scoliosis or deformity SKIN: No rashes CENTRAL NERVOUS SYSTEM: No focal deficits, tone is normal in all 4 extremities. EXTREMITIES: There is no peripheral edema. No clubbing, no cyanosis. Peripheral pulses are intact. - Labs CBC & Chem 7: 06/24/19 06:54 06/25/19 07:44 Labs: Abnormal Lab Results - Last 24 Hours (Table) 06/25/19 Range/Units 07:44 Sodium 136 L (137-145) mmol/L BUN 27 H (7-17) mg/dL Calcium 7.7 L (8.4-10.2) mg/dL AST 407 H (14-36) U/L ALT 139 H (9-52) U/L Alkaline Phosphatase 141 H (38-126) U/L Total Protein 5.0 L (6.3-8.2) g/dL Albumin 2.4 L (3.5-5.0) g/dL Microbiology - Last 24 Hours (Table) 06/23/19 16:37 Blood Culture - Preliminary Blood No Growth after 24 hours 06/23/19 16:02 Urine Culture - Preliminary Urine,Voided Gram Neg Bacilli Assessment and Plan Assessment: 1 Urinary tract infection secondary to gram-negative bacilli 2 Left lower lobe pneumonia 3 Metastatic melanoma with lesions in the lung, liver, spleen, kidneys and adrenal glands. 4 History of left lower extremity DVT. 5 Hyperlipidemia. 6 Hypertension 7 Previous history of pneumonia Plan: The patient was seen and evaluated by Dr. Olvera. She is improved today compared to yesterday. We'll continue with the current treatment plan. Increase her activity as tolerated. We'll continue to follow. I, the cosigning physician, performed a history & physical examination of the patient. Lungs sounds with crackles in the left base. Maintaining good O2 saturations in the 90s on 2 L/m per nasal cannula. I discussed the assessment and plan of care with my nurse practitioner, Jacklyn Jaimes. I attest to the above note as dictated by her.
--- NOTE | 2019-06-25 15:25 | P.PN ---
Subjective Progress Note Date: 06/25/19 Principal diagnosis: Sepsis Patient was seen and examined. No acute events overnight. Patient reports shortness of breath especially with exertion. States that she is able to walk to the washroom from her bed but unable to return without assistance. She denies any chest pain or palpitations. Complains of poor appetite but no nausea or vomiting. No fever or chills. Complains of some dysuria. Objective - Vital Signs Vital signs: Vital Signs Temp 98.1 F 06/25/19 12:09 Pulse 91 06/25/19 12:21 Resp 16 06/25/19 12:09 BP 120/78 06/25/19 12:09 Pulse Ox 93 L 06/25/19 12:09 Intake & Output 06/24/19 06/25/19 06/25/19 18:59 06:59 18:59 Intake Total 800 740 400 Balance 800 740 400 Weight 80.428 kg Intake: Intake, IV Titration 800 150 400 Amount Sodium Chloride 0.9% 1, 750 150 400 000 ml @ 50 mls/hr IV . Q20H [facility] Rx#:[id number] cefTRIAXone 2 gm In 50 Sodium Chloride 0.9% 50 ml @ 100 mls/hr IVPB ONCE STA Rx#:[id number] Oral 590 Other: Voiding Method Incontinent Incontinent Incontinent # Voids 2 4 - Exam General: [non toxic], [no distress], [appears at stated age] Derm: [warm], [dry] Head: [atraumatic], [normocephalic], [symmetric] Eyes: [EOMI], [no lid lag], [anicteric sclera] Mouth: [no lip lesion], [mucus membranes moist] Cardiovascular: [S1S2 reg], [no murmur], [positive DP pulse bilateral], Lungs: [decreased breath sounds bilateral], [no rhonchi, no rales] , [no accessory muscle use] Abdominal: [soft], [ nontender to palpation], [no guarding], [no appreciable organomegaly] Ext: [no gross muscle atrophy], [no edema], [no contractures] Neuro: [no focal neuro deficits] Psych: [Alert], [oriented], [appropriate affect] - Labs CBC & Chem 7: 06/24/19 06:54 06/25/19 07:44 Labs: Abnormal Lab Results - Last 24 Hours (Table) 06/25/19 Range/Units 07:44 Sodium 136 L (137-145) mmol/L BUN 27 H (7-17) mg/dL Calcium 7.7 L (8.4-10.2) mg/dL AST 407 H (14-36) U/L ALT 139 H (9-52) U/L Alkaline Phosphatase 141 H (38-126) U/L Total Protein 5.0 L (6.3-8.2) g/dL Albumin 2.4 L (3.5-5.0) g/dL Microbiology - Last 24 Hours (Table) 06/23/19 16:37 Blood Culture - Preliminary Blood No Growth after 24 hours 06/23/19 16:02 Urine Culture - Preliminary Urine,Voided Gram Neg Bacilli Assessment and Plan Assessment: Assessment and plan Sepsis related to UTI Possible pneumonia left lower lobe Recent diagnosis of left lower extremity DVT Chronic conditions: Metastatic melanoma, elevated liver enzymes due to m etastasis to the liver, protein calorie malnutrition moderate, hypertension, dyslipidemia Patient meets sepsis criteria. Leukocytosis. Tachycardia. Positive source of infection. UA shows moderate leukocyte esterase. CT abdomen and pelvis shows metastatic disease progression along with hyperdense enlargement of the adrenal gland, likely metastatic progression, hemorrhage not excluded. Blood culture negative. Urine culture positive for gram-negative bacilli. Plans: Follow blood culture. Follow urine culture. Start Rocephin for treatment a UTI. Continue normal saline at 100 mL/h. As seen on chest x-ray. Plans: Continue Rocephin and add azithromycin for atypical coverage. Follow sputum culture. DuoNeb as needed for shortness of breath and wheezing. Follow pulmonology consultation. Repeat chest x-ray tomorrow. Plans: Resume Eliquis. Consult oncology for continuation of management of metastatic melanoma. [Patient being treated for sepsis likely related to UTI along with continuation of left lower lobe pneumonia. She is on IV antibiotics. She is pending clinical improvement. Likely DC in 1-2 days.]
--- NOTE | 2019-06-25 16:45 | P.PN ---
Subjective Progress Note Date: 06/25/19 Principal diagnosis: UTI In follow-up today patient states she does feel much better than she did on admit. She denies fevers, nausea, vomiting, mild to moderate abdominal discom fort, mostly in the right upper quadrant, no BM, denies tea colored urine Objective - Vital Signs Vital signs: Vital Signs Temp 98.1 F 06/25/19 12:09 Pulse 95 06/25/19 16:36 Resp 18 06/25/19 16:36 BP 120/78 06/25/19 12:09 Pulse Ox 96 06/25/19 16:36 Intake & Output 06/24/19 06/25/19 06/25/19 18:59 06:59 18:59 Intake Total 800 740 400 Balance 800 740 400 Weight 80.428 kg Intake: Intake, IV Titration 800 150 400 Amount Sodium Chloride 0.9% 1, 750 150 400 000 ml @ 50 mls/hr IV . Q20H [facility] Rx#:[id number] cefTRIAXone 2 gm In 50 Sodium Chloride 0.9% 50 ml @ 100 mls/hr IVPB ONCE STA Rx#:[id number] Oral 590 Other: Voiding Method Incontinent Incontinent Incontinent # Voids 2 4 - Constitutional General appearance: Present: average body habitus, cooperative, no acute distress - EENT Eyes: Present: anicteric sclerae, EOMI ENT: Present: hearing grossly normal - Respiratory Details: Respirations even and unlabored - Cardiovascular Details: skin warm and dry - Gastrointestinal General gastrointestinal: Present: normal bowel sounds, soft - Neurologic Neurologic: Present: CNII-XII intact - Musculoskeletal Musculoskeletal: Present: generalized weakness - Psychiatric Psychiatric: Present: A&O x's 3, appropriate affect, intact judgment & insight - Labs CBC & Chem 7: 06/24/19 06:54 06/25/19 07:44 Labs: Abnormal Lab Results - Last 24 Hours (Table) 06/25/19 Range/Units 07:44 Sodium 136 L (137-145) mmol/L BUN 27 H (7-17) mg/dL Calcium 7.7 L (8.4-10.2) mg/dL AST 407 H (14-36) U/L ALT 139 H (9-52) U/L Alkaline Phosphatase 141 H (38-126) U/L Total Protein 5.0 L (6.3-8.2) g/dL Albumin 2.4 L (3.5-5.0) g/dL Microbiology - Last 24 Hours (Table) 06/23/19 16:37 Blood Culture - Preliminary Blood No Growth after 24 hours 06/23/19 16:02 Urine Culture - Preliminary Urine,Voided Gram Neg Bacilli Assessment and Plan (1) UTI (urinary tract infection) Narrative/Plan: Cultures pending but, >100k colonies on prelim. Antibiotics are ordered. Patie nt does have improved symptoms. Current Visit: Yes Status: Acute Priority: Medium Code(s): N39.0 - URINARY TRACT INFECTION, SITE NOT SPECIFIED SNOMED Code(s): 51100275 (2) Acute DVT (deep venous thrombosis) Narrative/Plan: continue anticoagulants as prescribed Current Visit: No Status: Acute Priority: High Code(s): I82.409 - ACUTE EMBOLISM AND THOMBOS UNSP DEEP VN UNSP LOWER EXTREMITY SNOMED Code(s): 742006800715959 (3) Metastatic melanoma Narrative/Plan: Reviewed with patient the concerning findings on the CT scan. There is evidence of progression. Unfortunately, patient has not even been able to tolerate her current regimen for even a week so, it has not even had a chance to work! Case was discussed with Dr. Pérez as well as Dr. Morocho. Discussed options for dose reduction (there are actually 2 more dose reductions possible on her current regimen) or changing to another treatment regimen that is available. I spoke with patient and she expressed that she would like to try reduced dose of her current regimen. This will be ordered for her. She will hold treatment until new dose received. Current Visit: No Status: Chronic Priority: High Code(s): C79.9 - SECONDARY MALIGNANT NEOPLASM OF UNSPECIFIED SITE SNOMED Code(s): 269847058 (4) Cancer related pain Narrative/Plan: Will work with patient's medications to get her on a long-acting and a short ac ting for breakthrough pain. Medications for prevention of narcotic-induced constipation. Current Visit: Yes Status: Acute Priority: High Code(s): G89.3 - NEOPLASM RELATED PAIN (ACUTE) (CHRONIC) SNOMED Code(s): 10941891545878 Plan: Eval for O2. Nebulizer. Case discussed with Dietitian Helper
[2019-06-25] MEDS: AZITHROMYCIN 500 MG TAB PO SCH (17:56)
[2019-06-25] MEDS: NORTRIPTYLINE 10 MG CAP PO SCH (21:23)
[2019-06-26] MEDS: MORPHINE SULFATE 2 MG/ML SYRINGE IVP PRN ×4 (02:09→21:26)
[2019-06-26] MEDS: SERTRALINE 100 MG TAB PO SCH ×2 (08:21→21:25)
[2019-06-26] MEDS: amLODIPine 2.5 MG TAB PO SCH (08:21)
[2019-06-26] MEDS: PANTOPRAZOLE 40 MG TABLET PO SCH (08:21)
[2019-06-26] MEDS: APIXABAN 5 MG TAB PO SCH ×2 (08:21→21:25)
[2019-06-26] MEDS: SENNOSIDES 8.6 MG TAB PO SCH ×2 (08:21→21:25)
[2019-06-26] MEDS: IPRATROPIUM-ALBUTEROL 3 ML NEB INHALATION SCH ×4 (08:41→20:27)
[2019-06-26 08:56] LABS: HCT 38.6 % (34.0-46.0); HGB 12.2 gm/dL (11.4-16.0); Hypochromasia Slight; MCH 29.1 pg (25.0-35.0); MCHC 31.6 g/dL (31.0-37.0); Mean Platelet Volume 7.2; Platelet Count 148 k/uL (150-450); RBC 4.19 m/uL (3.80-5.40); RDW 15.8 % (11.5-15.5); WBC 15.5 k/uL (3.8-10.6)
[2019-06-26 09:26] LABS: ALT 154 U/L (9-52); AST 512 U/L (14-36); African American GFR (CKD) >90 (>60 ml/min/1.73 sqM); Albumin 2.3 g/dL (3.5-5.0); Alkaline Phosphatase 143 U/L (38-126); Anion Gap 6 mmol/L; Blood Urea Nitrogen 25 mg/dL (7-17); Calcium 7.9 mg/dL (8.4-10.2); Carbon Dioxide 23 mmol/L (22-30); Chloride 107 mmol/L (98-107); Glucose 130 mg/dL (74-99); Non-African American GFR(CKD) 88 (>60 ml/min/1.73 sqM); Potassium 4.4 mmol/L (3.5-5.1); Sodium 136 mmol/L (137-145); Total Bilirubin 0.9 mg/dL (0.2-1.3); Total Protein 4.7 g/dL (6.3-8.2)
--- NOTE | 2019-06-26 11:41 | P.PN ---
Subjective Progress Note Date: 06/26/19 Principal diagnosis: Acute urinary tract infection, sepsis, left lower lobe pneumonia On 06/26/2019 patient seen in follow-up on medical surgical floor. She is breathing easier today, she is awake and alert, no acute distress, lung sounds are clear, diminished at the bases, she is afebrile, white blood cell count is trending down, 15.5 on today's exam, platelet count is 148, electrolytes, unremarkable, B1 is 25 creatinine is 0.67. Patient remains on accommodation Zithromax and Rocephin, urine culture showed E. coli with susceptibility to Rocephin. Objective - Vital Signs Vital signs: Vital Signs Temp 97.0 F L 06/26/19 07:41 Pulse 104 H 06/26/19 11:00 Resp 18 06/26/19 07:41 BP 138/81 06/26/19 07:41 Pulse Ox 91 L 06/26/19 11:00 Intake & Output 06/25/19 06/26/19 06/26/19 18:59 06:59 18:59 Intake Total 400 1290 Balance 400 1290 Weight 81.647 kg Intake: Intake, IV Titration 400 500 Amount Sodium Chloride 0.9% 1, 400 450 000 ml @ 50 mls/hr IV . Q20H [facility]U Rx#:[id number] cefTRIAXone 1 gm In 50 Sodium Chloride 0.9% 50 ml @ 100 mls/hr IVPB HS MARU Rx#:[id number] Oral 790 Other: Voiding Method Incontinent Toilet Toilet Incontinent Incontinent # Voids 4 2 - Exam GENERAL EXAM: Alert, pleasant, 74-year-old white female, in 2 L of oxygen and the pulse ox 92% comfortable in no apparent distress. HEAD: Normocephalic/atraumatic. EYES: Normal reaction of pupils, equal size. Conjunctiva pink, sclera white. NOSE: Clear with pink turbinates. THROAT: No erythema or exudates. NECK: No masses, no JVD, no thyroid enlargement, no adenopathy. CHEST: No chest wall deformity. Symmetrical expansion. LUNGS: Equal air entry with no crackles, wheeze, rhonchi or dullness. CVS: Regular rate and rhythm, normal S1 and S2, no gallops, no murmurs, no rubs ABDOMEN: Soft, nontender. No hepatosplenomegaly, normal bowel sounds, no guarding or rigidity. EXTREMITIES: No clubbing, no edema, no cyanosis, 2+ pulses and upper and lower extremities. MUSCULOSKELETAL: Muscle strength and tone normal. SPINE: No scoliosis or deformity SKIN: No rashes CENTRAL NERVOUS SYSTEM: Alert and oriented -3. No focal deficits, tone is normal in all 4 extremities. PSYCHIATRIC: Alert and oriented -3. Appropriate affect. Intact judgment and insight. - Labs CBC & Chem 7: 06/26/19 08:27 06/26/19 08:27 Labs: Abnormal Lab Results - Last 24 Hours (Table) 06/26/19 06/26/19 Range/Units 08:27 08:27 WBC 15.5 H (3.8-10.6) k/uL RDW 15.8 H (11.5-15.5) % Plt Count 148 L (150-450) k/uL Sodium 136 L (137-145) mmol/L BUN 25 H (7-17) mg/dL Glucose 130 H (74-99) mg/dL Calcium 7.9 L (8.4-10.2) mg/dL AST 512 H (14-36) U/L ALT 154 H (9-52) U/L Alkaline Phosphatase 143 H (38-126) U/L Total Protein 4.7 L (6.3-8.2) g/dL Albumin 2.3 L (3.5-5.0) g/dL Microbiology - Last 24 Hours (Table) 06/23/19 16:02 Urine Culture - Final Urine,Voided Escherichia coli 06/23/19 16:37 Blood Culture - Preliminary Blood No Growth after 48 hours Assessment and Plan Plan: Assessment: 1 Urinary tract infection secondary to E. coli with susceptibility to Rocephin 2 Left lower lobe pneumonia 3 Metastatic melanoma with lesions in the lung, liver, spleen, kidneys and adrenal glands. 4 History of left lower extremity DVT. 5 Hyperlipidemia. 6 Hypertension 7 Previous history of pneumonia Plan: Patient is doing well, no acute distress, no fever or chills, no worsening dyspnea, lung sounds are clear on today's exam, increase activity as tolerated, she is on appropriate antibiotics for pneumonia and her urinary tract infection, clinically stable. Could be considered for discharge from pulmonary perspective I performed a history & physical examination of the patient and discussed their management with my nurse practitioner, Serenity Case. I reviewed the nurse practitioner's note and agree with the documented findings and plan of care. Marsha ng sounds are positive for diminished breath sounds. The findings and the impression was discussed with the patient. I attest to the documentation by the nurse practitioner. Time with Patient: Less than 30
[2019-06-26 11:44] VITALS: RESP 16
--- NOTE | 2019-06-26 14:19 | P.PN ---
Subjective Progress Note Date: 06/26/19 Principal diagnosis: Sepsis Patient was seen and examined. No acute events overnight. Patient reports continued shortness of breath especially with exertion. Failed 6 minute walk test this morning. Patient states that she was unable to ambulate much due to the shortness of breath. She denies any chest pain or palpitations. She denies any nausea or vomiting. No fever or chills. Objective - Vital Signs Vital signs: Vital Signs Temp 98.4 F 06/26/19 11:25 Pulse 110 H 06/26/19 11:57 Resp 16 06/26/19 11:25 BP 117/67 06/26/19 11:25 Pulse Ox 95 06/26/19 11:25 Intake & Output 06/25/19 06/26/19 06/26/19 18:59 06:59 18:59 Intake Total 400 1290 Balance 400 1290 Weight 81.647 kg Intake: Intake, IV Titration 400 500 Amount Sodium Chloride 0.9% 1, 400 450 000 ml @ 50 mls/hr IV . Q20H [facility] Rx#:[id number] cefTRIAXone 1 gm In 50 Sodium Chloride 0.9% 50 ml @ 100 mls/hr IVPB HS MARU Rx#:[id number] Oral 790 Other: Voiding Method Incontinent Toilet Toilet Incontinent Incontinent # Voids 4 2 - Exam General: [non toxic], [no distress], [appears at stated age] Derm: [warm], [dry] Head: [atraumatic], [normocephalic], [symmetric] Eyes: [EOMI], [no lid lag], [anicteric sclera] Mouth: [no lip lesion], [mucus membranes moist] Cardiovascular: [S1S2 reg], [no murmur], [positive DP pulse bilateral], Lungs: [decreased breath sounds bilateral], [no rhonchi, no rales] , [no accessory muscle use] Abdominal: [soft], [ nontender to palpation], [no guarding], [no appreciable organomegaly] Ext: [no gross muscle atrophy], [no edema], [no contractures] Neuro: [no focal neuro deficits] Psych: [Alert], [oriented], [appropriate affect] - Labs CBC & Chem 7: 06/26/19 08:27 06/26/19 08:27 Labs: Abnormal Lab Results - Last 24 Hours (Table) 06/26/19 06/26/19 Range/Units 08:27 08:27 WBC 15.5 H (3.8-10.6) k/uL RDW 15.8 H (11.5-15.5) % Plt Count 148 L (150-450) k/uL Sodium 136 L (137-145) mmol/L BUN 25 H (7-17) mg/dL Glucose 130 H (74-99) mg/dL Calcium 7.9 L (8.4-10.2) mg/dL AST 512 H (14-36) U/L ALT 154 H (9-52) U/L Alkaline Phosphatase 143 H (38-126) U/L Total Protein 4.7 L (6.3-8.2) g/dL Albumin 2.3 L (3.5-5.0) g/dL Microbiology - Last 24 Hours (Table) 06/23/19 16:02 Urine Culture - Final Urine,Voided Escherichia coli 06/23/19 16:37 Blood Culture - Preliminary Blood No Growth after 48 hours Assessment and Plan Assessment: Assessment and plan Sepsis related to UTI Possible pneumonia left lower lobe Recent diagnosis of left lower extremity DVT Chronic conditions: Metastatic melanoma, elevated liver enzymes due to metastasis to the liver, protein calorie malnutrition moderate, hypertension, dyslipidemia Patient meets sepsis criteria. Leukocytosis. Tachycardia. Positive source of infection. UA shows moderate leukocyte esterase. CT abdomen and pelvis shows metastatic disease progression along with hyperdense enlargement of the adrenal gland, likely metastatic progression, hemorrhage not excluded. Blood culture negative. Urine culture positive for E. coli. Plans: Follow blood culture. Follow urine culture. Start Rocephin for treatment a UTI. Decrease IVF from 100 mL to 50 mL/h. As seen on chest x-ray. Plans: Continue Rocephin and add azithromycin for atypical coverage. Follow sputum culture. DuoNeb as needed for shortness of breath and wheezing. Follow pulmonology consultation. Repeat chest x-ray tomorrow. Plans: Resume Eliquis. Consult oncology for continuation of management of metastatic melanoma. [Patient being treated for sepsis likely related to UTI along with continuation of left lower lobe pneumonia. She is on IV antibiotics. Her breathing has not improved much since admission. Would benefit from 1 more day of antibiotics and breathing treatments around the clock. Likely DC tomorrow.]
--- NOTE | 2019-06-26 15:16 | P.PN ---
Subjective Progress Note Date: 06/26/19 Principal diagnosis: UTI In f/u today pt feels she is doing ok, has not had a BM recently, mild abd discomfort, no oral irritation, nausea, chest pain, she has SOB on exertion, BLE swelling, she is not ambulating too far. Objective - Vital Signs Vital signs: Vital Signs Temp 98.4 F 06/26/19 11:25 Pulse 110 H 06/26/19 11:57 Resp 16 06/26/19 11:25 BP 117/67 06/26/19 11:25 Pulse Ox 95 06/26/19 11:25 Intake & Output 06/25/19 06/26/19 06/26/19 18:59 06:59 18:59 Intake Total 400 1290 Balance 400 1290 Weight 81.647 kg Intake: Intake, IV Titration 400 500 Amount Sodium Chloride 0.9% 1, 400 450 000 ml @ 50 mls/hr IV . Q20H [facility] Rx#:[id number] cefTRIAXone 1 gm In 50 Sodium Chloride 0.9% 50 ml @ 100 mls/hr IVPB HS [facility]U Rx#:[id number] Oral 790 Other: Voiding Method Incontinent Toilet Toilet Incontinent Incontinent # Voids 4 2 3 - Constitutional General appearance: Present: cooperative, no acute distress, obese - EENT Eyes: Present: anicteric sclerae, EOMI ENT: Present: hearing grossly normal - Respiratory Respiratory: bilateral: diminished - Cardiovascular Heart sounds: normal: S1, S2 - Peripheral edema leg Peripheral Edema: bilateral: 1+ (non-pitting) - Gastrointestinal General gastrointestinal: Present: normal bowel sounds, soft. Absent: absent bowel sounds, decreased bowel sounds, distended, hepatomegaly, hyperactive bowel sounds, organomegaly, rigid, scaphoid, splenomegaly, tenderness, umbilical hernia, ventral hernia - Neurologic Neurologic: Present: CNII-XII intact - Musculoskeletal Musculoskeletal: Present: generalized weakness - Psychiatric Psychiatric: Present: A&O x's 3, appropriate affect, intact judgment & insight - Labs CBC & Chem 7: 06/26/19 08:27 06/26/19 08:27 Labs: Abnormal Lab Results - Last 24 Hours (Table) 06/26/19 06/26/19 Range/Units 08:27 08:27 WBC 15.5 H (3.8-10.6) k/uL RDW 15.8 H (11.5-15.5) % Plt Count 148 L (150-450) k/uL Sodium 136 L (137-145) mmol/L BUN 25 H (7-17) mg/dL Glucose 130 H (74-99) mg/dL Calcium 7.9 L (8.4-10.2) mg/dL AST 512 H (14-36) U/L ALT 154 H (9-52) U/L Alkaline Phosphatase 143 H (38-126) U/L Total Protein 4.7 L (6.3-8.2) g/dL Albumin 2.3 L (3.5-5.0) g/dL Microbiology - Last 24 Hours (Table) 06/23/19 16:02 Urine Culture - Final Urine,Voided Escherichia coli 06/23/19 16:37 Blood Culture - Preliminary Blood No Growth after 48 hours Assessment and Plan (1) UTI (urinary tract infection) Narrative/Plan: E-coli UTI. On abx. Patient does have improved symptoms. Current Visit: Yes Status: Acute Priority: Medium Code(s): N39.0 - URINARY TRACT INFECTION, SITE NOT SPECIFIED SNOMED Code(s): 20943905 (2) Acute DVT (deep venous thrombosis) Narrative/Plan: continue anticoagulants as prescribed Current Visit: No Status: Acute Priority: High Code(s): I82.409 - ACUTE EMBOLISM AND THOMBOS UNSP DEEP VN UNSP LOWER EXTREMITY SNOMED Code(s): 030637243886950 (3) Metastatic melanoma Narrative/Plan: Reviewed with patient the concerning findings on the CT scan. There is evidence of progression. Unfortunately, patient has not even been able to tolerate her current regimen for even a week so, it has not even had a chance to work! Case was discussed with Dr. Pérez as well as Dr. Morocho. Discussed options for dose reduction (there are actually 2 more dose reductions possible on her current regimen) or changing to another treatment regimen that is available. I spoke with patient and she expressed that she would like to try reduced dose of her current regimen. This will be ordered for her. She will hold treatment until new dose received. Current Visit: No Status: Chronic Priority: High Code(s): C79.9 - SECONDARY MALIGNANT NEOPLASM OF UNSPECIFIED SITE SNOMED Code(s): 592252836 (4) Cancer related pain Narrative/Plan: Will work with patient's medications to get her on a long-acting and a short acting for breakthrough pain. Medications for prevention of narcotic-induced constipation. Current Visit: Yes Status: Acute Priority: High Code(s): G89.3 - NEOPLASM RELATED PAIN (ACUTE) (CHRONIC) SNOMED Code(s): 18754609686517 (5) LFT elevation Narrative/Plan: I discussed the elevation with pt and that it has been being monitored. Initially thought to be drug related effect. She has been off tafinlar with no decrease in LFTs, in fact, they are continuing to elevate a little each day. Concern now is for further progression of disease in the liver-progression was noted on CT AP but, now liver function studies are being impacted. She un derstands the impact this can have on her treatment. Pt will cont off of melanoma meds for now, she has a f/u appt with Dr. Morocho in chart. Current Visit: Yes Status: Acute Priority: High Code(s): R94.5 - ABNORMAL RESULTS OF LIVER FUNCTION STUDIES SNOMED Code(s): 938514475 Plan: Eval for O2. Nebulizer. Case discussed with Director Park Haroon for DC from Hem/Onc standpoint once cleared by Attending and Consulting Physicians
[2019-06-26] MEDS: PROCHLORPERAZINE 10 MG TAB PO PRN (17:00)
[2019-06-26] MEDS: SODIUM CHLORIDE 0.9% 1,000 ML IV SCH (17:32)
[2019-06-26] MEDS: KETOROLAC 30 MG/ML 1 ML VIAL IVP PRN (17:34)
[2019-06-26] MEDS: NORTRIPTYLINE 10 MG CAP PO SCH (21:25)
[2019-06-26] MEDS: AZITHROMYCIN 500 MG TAB PO SCH (21:25)
[2019-06-27 05:28] VITALS: BP 106/71; TEMP 97.5
[2019-06-27 07:00] LABS: ALT 148 U/L (9-52); AST 737 U/L (14-36); African American GFR (CKD) >90 (>60 ml/min/1.73 sqM); Albumin 2.2 g/dL (3.5-5.0); Alkaline Phosphatase 125 U/L (38-126); Anion Gap 6 mmol/L; Blood Urea Nitrogen 25 mg/dL (7-17); Calcium 7.7 mg/dL (8.4-10.2); Carbon Dioxide 22 mmol/L (22-30); Chloride 106 mmol/L (98-107); Glucose 76 mg/dL (74-99); Non-African American GFR(CKD) 90 (>60 ml/min/1.73 sqM); Potassium 4.5 mmol/L (3.5-5.1); Sodium 134 mmol/L (137-145); Total Bilirubin 1.2 mg/dL (0.2-1.3); Total Protein 4.6 g/dL (6.3-8.2)
[2019-06-27] MEDS: IPRATROPIUM-ALBUTEROL 3 ML NEB INHALATION SCH ×3 (08:21→11:37)
[2019-06-27 08:50] VITALS: PULSE 100
[2019-06-27] MEDS: SENNOSIDES 8.6 MG TAB PO SCH (09:31)
[2019-06-27] MEDS: amLODIPine 2.5 MG TAB PO SCH (09:31)
[2019-06-27] MEDS: PANTOPRAZOLE 40 MG TABLET PO SCH (09:31)
[2019-06-27] MEDS: SERTRALINE 100 MG TAB PO SCH (09:31)
[2019-06-27] MEDS: APIXABAN 5 MG TAB PO SCH (09:31)
[2019-06-27] MEDS: KETOROLAC 30 MG/ML 1 ML VIAL IVP PRN (09:32)
--- NOTE | 2019-06-27 10:17 | P.DS ---
Providers Date of admission: 06/23/19 19:26 Expected date of discharge: 06/27/19 Attending physician: Rachell Santoyo MD Consults: 06/23/19 19:26 Consult Physician Routine Consulting Provider: Adi Pérez Consult Reason/Comments: Metastatic melanoma Do you want consulting provider notified?: Yes 06/24/19 10:43 Consult Physician Routine Consulting Provider: Adán Calabrese Consult Reason/Comments: HCAP Do you want consulting provider notified?: Yes Primary care physician: Javad Koroma [facility] Course: 74-year-old female with medical metastatic melanoma, hypertension, recent history of DVT in the left lower extremity currently on Eliquis presented to the ED for 5 day history of urinary incontinence along with back pain. Patient also reported productive cough with yellow-green sputum along with pleuritic chest pain with strong bouts of coughing. Patient endorsed a recurrent pneumonias in the past. In the ED, patient was noted to have elevated white count along with elevated liver enzymes. Chest x-ray showed possible small left lower lobe infiltrate. Urinalysis showed small leukocyte esterase. Patient was admitted for sepsis due to recurrent pneumonia and urinary tract infection. Patient initially met sepsis criteria on admission with an elevated white count, heart rate greater than 100 and a positive source of infection. Urinalysis showed small leukocyte esterase. CT of the abdomen and pelvis was done which showed metastatic disease progression along with hyperdense enlargement of the adrenal gland, likely metastatic progression, hemorrhage cannot be excluded. Blood cultures were performed and were negative. Urine culture was positive for E. coli. She was started on Rocephin for treatment UTI and azithromycin was added for atypical coverage of pneumonia. She was initially hydrated with normal saline at 100 mL/h which is decreased to 50 at the time of discharge. With regard to her pneumonia, she was given DuoNeb treatments scheduled and as needed for shortness of breath and wheezing. Eliquis was resumed for her recent diagnosis of left lower extremity DVT. Hematology oncology was consulted for continuation of care for her metastatic melanoma and recommended outpatient follow-up. Pulmonology was consulted and followed the patient throughout her hospitalization and eventually cleared the patient for discharge. Patient was seen and examined. No acute events overnight. Patient reports exertional shortness of breath especially with ambulation. States that she has been coughing up more sputum. She denies any chest pain or palpitations. No nausea or vomiting. No fever or chills. She is looking for to going home. States that she has her and son and I can look after her at home. General: [non toxic], [no distress], [appears at stated age] Derm: [warm], [dry] Head: [atraumatic], [normocephalic], [symmetric] Eyes: [EOMI], [no lid lag], [anicteric sclera] Mouth: [no lip lesion], [mucus membranes moist] Cardiovascular: [S1S2 reg], [no murmur], [positive DP pulse bilateral], Lungs: [decreased breath sounds bilateral], [no rhonchi, no rales] , [no accessory muscle use] Abdominal: [soft], [ nontender to palpation], [no guarding], [no appreciable organomegaly] Ext: [no gross muscle atrophy], [no edema], [no contractures] Neuro: [no focal neuro deficits] Psych: [Alert], [oriented], [appropriate affect] Assessment and plan Sepsis related to UTI Possible pneumonia left lower lobe Recent diagnosis of left lower extremity DVT Chronic conditions: Metastatic melanoma, elevated liver enzymes due to metastasis to the liver, protein calorie malnutrition moderate, hypertension, dyslipidemia Patient meets sepsis criteria. Leukocytosis. Tachycardia. Positive source of infection. UA shows moderate leukocyte esterase. CT abdomen and pelvis shows metastatic disease progression along with hyperdense enlargement of the adrenal gland, likely metastatic progression, hemorrhage not excluded. Blood culture negative. Urine culture positive for E. coli. Plans: Follow blood culture. Follow urine culture. Start Rocephin for treatment a UTI. Decrease IVF from 100 mL to 50 mL/h. As seen on chest x-ray. Plans: Continue Rocephin and add azithromycin for atypical coverage. Follow sputum culture. DuoNeb as needed for shortness of breath and wheezing. Follow pulmonology consultation. Repeat chest x-ray tomorrow. Plans: Resume Eliquis. Consult oncology for continuation of management of metastatic melanoma. [Patient being treated for sepsis likely related to UTI along with continuation of left lower lobe pneumonia. We will complete 4 more days of Levaquin by mouth. Nebulizer machine has been ordered so patient can receive DuoNeb treatment at home, she does have metastatic disease to the lungs. Home oxygen has been ordered because patient has failed 6 minute walk test. Repeat chest x- ray in 1 week. Repeat CBC and CMP in 3 days. Follow-up with PCP within 3 days. Follow up with oncology within 1 week.] Assessment: Chest x-ray, CT abdomen and pelvis Patient Condition at Discharge: Stable Plan - Discharge Summary Discharge Rx Participant: Yes New Discharge Prescriptions: New Ipratropium-Albuterol Nebulize [Duoneb 0.5 mg-3 mg/3 ml Soln] 3 ml INHALATION RT-QID #90 ampul.neb Levofloxacin [Levaquin] 750 mg PO DAILY 4 Days #4 tab Continue Prochlorperazine [Compazine] 10 mg PO Q6H PRN PRN Reason: Nausea Sertraline [Zoloft] 100 mg PO BID Omeprazole 20 mg PO DAILY Nystatin-Triamcinolone Oint [Mycolog 100,000-0.1 Unit/gm-% Oint] 1 applic TOPICAL BID PRN PRN Reason: Skin Irritation amLODIPine BESYLATE [Norvasc] 2.5 mg PO DAILY Nortriptyline [Pamelor] 10 mg PO HS Meloxicam [Mobic] 7.5 mg PO BID Trametinib Dimethyl Sulfoxide [Mekinist] 2 mg PO DAILY Tafinlar 75mg Capsule 150 mg PO Q12H Sennosides [Senokot] 8.6 mg PO BID 30 Days #60 tab HYDROcodone/APAP 5-325MG [[place] 5-325] 1 tab PO Q4HR PRN PRN Reason: Pain Apixaban [Eliquis] 5 mg PO BID Discharge Medication List Meloxicam [Mobic] 7.5 mg PO BID 06/08/19 [History] Nortriptyline [Pamelor] 10 mg PO HS 06/08/19 [History] Nystatin-Triamcinolone Oint [Mycolog 100,000-0.1 Unit/gm-% Oint] 1 applic TOPICAL BID PRN 06/08/19 [History] Omeprazole 20 mg PO DAILY 06/08/19 [History] Prochlorperazine [Compazine] 10 mg PO Q6H PRN 06/08/19 [History] Sertraline [Zoloft] 100 mg PO BID 06/08/19 [History] Tafinlar 75mg Capsule 150 mg PO Q12H 06/08/19 [History] Trametinib Dimethyl Sulfoxide [Mekinist] 2 mg PO DAILY 06/08/19 [History] amLODIPine BESYLATE [Norvasc] 2.5 mg PO DAILY 06/08/19 [History] Sennosides [Senokot] 8.6 mg PO BID 30 Days #60 tab 06/11/19 [Rx] Apixaban [Eliquis] 5 mg PO BID 06/23/19 [History] HYDROcodone/APAP 5-325MG [[place] 5-325] 1 tab PO Q4HR PRN 06/23/19 [History] Ipratropium-Albuterol Nebulize [Duoneb 0.5 mg-3 mg/3 ml Soln] 3 ml INHALATION RT-QID #90 ampul.neb 06/27/19 [Rx] Levofloxacin [Levaquin] 750 mg PO DAILY 4 Days #4 tab 06/27/19 [Rx] Follow up Appointment(s)/Referral(s): [facility] [NON-STAFF] - 1-2 Days (call - [phone] [place] number - call if you have questions. ) Caio Olvera DO [Doctor of Osteopathic Medicine] - 1 Week [facility] [NON-[facility]FF] - (This is the contact information for [facility] Palliative Care team also. ) Javad Koroma MD [Primary Care Provider] - 1-2 days Ambulatory/Diagnostic Orders: Complete Blood Count w/diff [LAB.AMB] Time Frame: 3 Days, Location: None Selected Comprehensive Metabolic Panel [LAB.AMB] Time Frame: 3 Days, Location: None Selected XR chest 2V [RAD.AMB] Time Frame: 7 Days, Location: None Selected Activity/Diet/Wound Care/Special Instructions: Diet: Heart healthy Follow-up PCP within 3 days of discharge. Follow up with pulmonology within 1 week of discharge. Follow up with oncology within 1 week of discharge. Take medications as advised. Repeat CMP and CBC within 3 days, follow up results with PCP. Repeat chest x-ray within 1 week, follow up results with PCP. Discharge Disposition: HOME SELF-CARE
--- NOTE | 2019-06-27 11:47 | XR ---
EXAMINATION TYPE: XR chest 2V DATE OF EXAM: 06/27/2019 COMPARISON: Chest x-ray 06/24/2019, CT chest 06/08/2019 HISTORY: Pneumonia TECHNIQUE: Frontal and lateral views of the chest are obtained. FINDINGS: Right internal jugular Mediport with high position of the tip projecting over the superior vena cava. Cardiac silhouette is stable in size. No pulmonary vascular congestion. Nodular opacities present throughout both lungs correlating with comparative CT findings. Patchy retrocardiac airspace opacities similar to slightly progressed in the interim. Right lung is clear. Trace bilateral pleura l effusions. Surgical clips project over the left axillary soft tissues. IMPRESSION: Stable to slightly worsened retrocardiac opacity. Trace bilateral pleural effusions.
--- NOTE | 2019-06-27 13:01 | PN ---
PROGRESS NOTE PULMONARY/CRITICAL CARE PROGRESS NOTE: DATE OF SERVICE: 06/27/2019 This is a 74-year-old female who has been seen in consultation for both left lower lobe pneumonia and E coli urinary tract infection. The patient is doing reasonably well. She has a history of metastatic melanoma. She has lesions in the liver, lung, spleen, kidneys, and adrenal glands. She apparently was initially on Opdivo but failed that treatment and is on two new medications currently, although, even at reduce doses, she has had complications and problems. She also has history of left lower extremity DVT, hyperlipidemia, hypertension, and a prior history of pneumonia. Currently, she is doing better. Her chest x-ray today in my opinion is improved. She still is coughing, producing some phlegm. No fever or chills. She is minimally short of breath. Current vital signs are reviewed, temperature 97.5, heart rate 100, respiratory rate 16, blood pressure 106/71 mean 82 and 2 L saturation 95%. Appears in no acute distress. HEENT: Examination is grossly unremarkable. Mucous membranes are moist. No oral lesions. Nasal O2 noted. NECK: Supple. Full range of motion. No adenopathy or thyromegaly. Neck veins are flat. CARDIOVASCULAR: Examination reveals regular rhythm and rate. Heart rate about 82 beats per minute. S1, S2 normal. No distinct murmur. LUNGS: Reveal a few scattered rhonchi. Breath sounds are improved. No wheezes or crackles. ABDOMEN: Soft. Bowel sounds are heard. EXTREMITIES; Intact. No cyanosis, clubbing, or edema. SKIN: Without rash. NEUROLOGIC: Examination is brief but nonfocal. LABS: Reviewed. Today sodium 134, potassium 4.5, chloride is 106, CO2 is 22, anion gap is 6. BUN and creatinine were 25 and 0.63. Her AST is 737, ALT 148, alkaline phosphatase 125, albumin 2.2. Microbiology was only positive in the urine for Escherichia coli. Chest x-ray is reviewed and appears to be improved to me. Her prior x-ray showed a patchy infiltrate in the left lung. Current medications are reviewed. ASSESSMENT: 1. Escherichia coli urinary tract infection, susceptible to Rocephin. 2. Left lower lobe pneumonia, treated with Rocephin and azithromycin. 3. Metastatic melanoma with lesions in the lung, liver, spleen, kidneys and adrenal glands. 4. History of left lower extremity deep venous thrombosis. 5. Hyperlipidemia. 6. Hypertension. 7. Prior history of pneumonia. Plan dated 06/27/2019 Currently, the patient is on appropriate antibiotics. Clinically, she appears to be improved. Her x-ray also appears to be improved. She still has some shortness of breath, chest congestion, cough and phlegm production. Will continue to follow. No additional recommendations are made. Prognosis is guarded given her widely metastatic melanoma. MMODL / IJN: [id number] / MTDTobias
== END 2019-06-27 13:11 | disposition home or self-care (01) | DRG 871 ==
LOC: EC 15:36 → 3NMEDONC 19:26
PROVIDERS: ADMIT Internal Medicine; ATTEND Internal Medicine
DX: A41.51 Sepsis due to Escherichia coli [E. coli] (principal); J18.9 Pneumonia, unspecified organism; C78.7 Secondary malignant neoplasm of liver and intrahepatic bile duct; C79.00 Secondary malignant neoplasm of unspecified kidney and renal pelvis; C78.00 Secondary malignant neoplasm of unspecified lung; N39.0 Urinary tract infection, site not specified; C74.90 Malignant neoplasm of unspecified part of unspecified adrenal gland; E44.0 Moderate protein-calorie malnutrition; I82.4Z2 Acute embolism and thrombosis of unspecified deep veins of left distal lower extremity; Y95 Nosocomial condition; M06.9 Rheumatoid arthritis, unspecified; C43.9 Malignant melanoma of skin, unspecified; G89.3 Neoplasm related pain (acute) (chronic); R33.8 Other retention of urine; E78.5 Hyperlipidemia, unspecified; I10 Essential (primary) hypertension; Z96.659 Presence of unspecified artificial knee joint; Z79.891 Long term (current) use of opiate analgesic; Z79.899 Other long term (current) drug therapy; Z88.1 Allergy status to other antibiotic agents; Z88.0 Allergy status to penicillin; Z79.1 Long term (current) use of non-steroidal anti-inflammatories (NSAID); Z87.01 Personal history of pneumonia (recurrent); Z90.710 Acquired absence of both cervix and uterus; Z87.442 Personal history of urinary calculi; Z87.19 Personal history of other diseases of the digestive system; Z98.890 Other specified postprocedural states; Z80.0 Family history of malignant neoplasm of digestive organs; Z80.1 Family history of malignant neoplasm of trachea, bronchus and lung; Z80.3 Family history of malignant neoplasm of breast; Z79.01 Long term (current) use of anticoagulants
CPT/HCPCS: 36415; 71046; 74176; 80053; 81001; 83605; 83735; 84484; 85025; 85027; 85610; 85730; 87040; 87070; 87077; 87086; 87186; 87205; 93005; 94640; 94760; 96361; 96365; 96375; 99285

== ENCOUNTER 2019-07-01 00:41 | Inpatient (IN) | payer MEDICARE ==
[2019-07-01] MEDS: NOREPINEPHRINE 32 MG in SODIUM CHLORIDE 0.9% 218 ML IV SCH ×2 (00:58→18:28)
[2019-07-01] MEDS ORDERED: ROCURONIUM BROMIDE 10 MG/ML 10 ML VIAL IV STA (01:01)
[2019-07-01] MEDS ORDERED: ETOMIDATE 2 MG/ML 10 ML VIAL IVP STA (01:01)
--- NOTE | 2019-07-01 01:03 | ED ---
General Adult HPI - General Chief complaint: Recheck/Abnormal Lab/Rx Stated complaint: Septic-transfer Time Seen by Provider: 07/01/19 00:49 Source: patient, family, EMS, old records reviewed Mode of arrival: EMS Limitations: altered mental status - History of Present Illness Initial comments: Tonya is a 74-year-old female who presents the ED today via EMS as a transfer from an outside hospital. Patient was recently admitted to our hospital for urinary tract infection, also diagnosed with a left lower extremity DVT. Family reports since discharge from the hospital 4 days ago the patient has not been eating or drinking well, she's been pretty confused. Today she seemed much more confused and appeared quite unwell at which time EMS was contacted. Family requested patient be brought straight to this facility however she was profoundly hypotensive and altered and decision was made to take her to the local hospital for evaluation. Septic workup was initiated outside hospital, patient received a gentle IV fluid bolus however chest x-ray revealed pulmonary edema decision was made to give Lasix and start Levaquin head. Patient started on pressors and transferred to our facility for further care. Upon arrival patient remains hypotensive she is very sleepy, she rouses to voice or touch, answers questions in short answers and falls back asleep and has snoring respirations. History is limited by the patient's condition. - Related Data Home Medications Medication Instructions Recorded Confirmed Meloxicam [Mobic] 7.5 mg PO BID 06/08/19 06/23/19 Nortriptyline [Pamelor] 10 mg PO HS 06/08/19 06/23/19 Nystatin-Triamcinolone Oint 1 applic TOPICAL BID PRN 06/08/19 06/23/19 [Mycolog 100,000-0.1 Unit/gm-% Oint] Omeprazole 20 mg PO DAILY 06/08/19 06/23/19 Prochlorperazine [Compazine] 10 mg PO Q6H PRN 06/08/19 06/23/19 Sertraline [Zoloft] 100 mg PO BID 06/08/19 06/23/19 Tafinlar 75mg Capsule 150 mg PO Q12H 06/08/19 06/23/19 Trametinib Dimethyl Sulfoxide 2 mg PO DAILY 06/08/19 06/23/19 [Mekinist] amLODIPine BESYLATE [Norvasc] 2.5 mg PO DAILY 06/08/19 06/23/19 Apixaban [Eliquis] 5 mg PO BID 06/23/19 06/23/19 HYDROcodone/APAP 5-325MG [[place] 1 tab PO Q4HR PRN 06/23/19 06/23/19 5-325] Previous Rx's Medication Instructions Recorded Sennosides [Senokot] 8.6 mg PO BID 30 Days #60 tab 06/11/19 Ipratropium-Albuterol Nebulize 3 ml INHALATION RT-QID #90 06/27/19 [Duoneb 0.5 mg-3 mg/3 ml Soln] ampul.neb Levofloxacin [Levaquin] 750 mg PO DAILY 4 Days #4 tab 06/27/19 Allergies Allergy/AdvReac Type Severity Reaction Status Date / Time ciprofloxacin [From Cipro] Allergy Hallucinati Verified 06/23/19 15:41 ons Penicillins Allergy Unknown Verified 06/23/19 15:41 Childhood Review of Systems ROS Statement: Those systems with pertinent positive or pertinent negative responses have been documented in the HPI. ROS Other: All systems not noted in ROS Statement are negative. Past Medical History Past Medical History: Cancer, Deep Vein Thrombosis (DVT), Hyperlipidemia, H ypertension, Pneumonia, Rheumatoid Arthritis (RA) Additional Past Medical History / Comment(s): metatastic melanoma dx 2018 mets spleen, kidney, back, lung , presently DVT left leg History of Any Multi-Drug Resistant Organisms: None Reported Past Surgical History: Bladder Surgery, Hernia Repair, Hysterectomy, Orthopedic Surgery Additional Past Surgical History / Comment(s): tumor removal right breast, 3 knee replacements, T& A, tropean eye surgery Past Anesthesia/Blood Transfusion Reactions: No Reported Reaction Past Psychological History: No Psychological Hx Reported Smoking Status: Never smoker Past Alcohol Use History: None Reported Past Drug Use History: None Reported - Past Family History Father Family Medical History: Cancer Additional Family Medical History / Comment(s): lung cancer Mother Family Medical History: Cancer Additional Family Medical History / Comment(s): intestinal cancer Sister(s) Family Medical History: Cancer Additional Family Medical History / Comment(s): breast cancer Family Additional Family Medical History / Comment(s): Denies history of cancer General Exam - General Exam Comments Initial Comments: Physical Exam GENERAL: Chronically ill-appearing elderly female, toxic appearance HENT: Normocephalic, Atraumatic. EYES: PERRL, EOMI PULMONARY: Crackles more prominent on left than right CARDIOVASCULAR: Tachycardic, regular ABDOMEN: Soft and nontender with normal bowel sounds. SKIN: Skin is pale, there are bruises on the forearms with previous IV access attempts : Hassan catheter in place draining dark tea-colored urine NEUROLOGIC: Oriented to self, able to identify that she is in the hospital, uncertain of why, uncertain of reason for transfer. Able to answer yes no questions appropriately to confirm past medical history. Moving all extremities. MUSCULOSKELETAL: Lower extremity edema PSYCHIATRIC: Unable to assess secondary to medical condition Limitations: altered mental status Course Vital Signs 07/01/19 07/01/19 07/01/19 00:42 00:53 01:00 Temperature 98.2 F Pulse Rate 112 H 106 H 126 H Respiratory 28 H 18 14 Rate Blood Pressure 82/69 O2 Sat by Pulse 96 95 94 L Oximetry 07/01/19 07/01/19 07/01/19 01:10 01:20 01:30 Temperature Pulse Rate 112 H 111 H 112 H Respiratory 14 16 16 Rate Blood Pressure 103/52 88/45 101/38 O2 Sat by Pulse 97 97 99 Oximetry 07/01/19 07/01/19 07/01/19 01:40 01:50 02:00 Temperature Pulse Rate 115 H 114 H 113 H Respiratory 16 16 16 Rate Blood Pressure 115/50 103/26 98/60 O2 Sat by Pulse 99 99 98 Oximetry 07/01/19 07/01/19 02:30 03:00 Temperature Pulse Rate 112 H 120 H Respiratory 16 16 Rate Blood Pressure 102/56 99/58 O2 Sat by Pulse 97 100 Oximetry Procedures - Central Line Placement Left IJ Consent Obtained: verbal consent Patient Placed on Monitor/Pulse Ox: Yes MD Prep: mask, gown, gloves Central Line Prep: Chlorhexidine scrub Local Anesthesia Used: Lidocaine 1% Amount of Anesthesia Used (mls): 4 Ultrasound Used for Placement: Yes Central Line Lumen Inserted: triple Bloods Obtained for Lab: Yes Central Line Position: good blood return, all ports aspirated, flushed, capped, sutured in place with 3-0 nylon Dressing Applied: sterile gauze/tape Post Procedure X-Ray: tip of catheter in good position Patient Tolerated Procedure: well Complications: hematoma at puncture site - Intubation Sedative: Etomidate Paralytic: Rocuronium Laryngoscope: Jeyson Size: 3 ET Tube Size: 7.5 ET Tube Uncuffed: No Tube Secured Depth (cm): 21 Tube Secured Location: teeth Tube Placement Confirmation: visualized tube passing through cords, equal breath sounds bilaterally, no breath sounds over epigastrium, confirmation by capnome try Patient Tolerated Procedure: no complications - Sepsis Sepsis Focused Exam #1 Time Sepsis Criteria Met: : Sepsis Focused Exam Date: 07/01/19 Sepsis Focused Exam Time: Sepsis Focused Exam Complete: Yes Vital Signs & RN Notes Reviewed: Yes Capillary Refill: < 2 Seconds: Fingers, Toes Peripheral Pulses: Weak: Radial (R), Radial (L) Skin Color: Normal for Patient Respiratory Exam: rales, rhonchi Cardiovascular Exam: tachycardia Medical Decision Making - Medical Decision Making Patient care was discussed with transferring physician prior to transfer. This is an elderly female with metastatic melanoma, presenting to an outside facility and what appears to be septic shock. Patient's awake and talking decision was made not to intubate at the outside facility. She was given IV fluid bolus at outside facility as well as Lasix for treatment of pulmonary edema. The patient was seen and evaluated immediately upon arrival to our facility, patient was noted to be quite lethargic, hypotensive, tachycardic decision was made to intubate for airway protection and to allow the patient to rest. Patient was intubated with 7.5 tube, no complications with intubation Patient has a right-sided port, however given the patient's likely in the multiple antibiotics, fluids, pressors decision was made to establish a secondary central line. A left IJ was placed. Patient was noted to develop a small hematoma at the site of insertion. Labs resulted with multiple significant abnormalities, profound leukocytosis, hyponatremia, hyperkalemia which was treated, acute kidney injury with elevated BUN consistent with prerenal azotemia. Additional IV fluids were ordered. Patient was noted to have much banking representative colored urine draining from the Hassan catheter after bolus. The patient received a total of 1 L prior to arrival as well as a dose of cefepime, in addition she was given 2 L while in the emergency department and placed on IV fluids at 150 per hour. Patient care was discussed with fha underwriter Dr. Romero and who agrees with plan for admission for septic shock secondary to urinary tract infection and likely pneumonia. Patient care was discussed with admitting physician Dr. Krishnan who agrees with plan for admission to the ICU for septic shock. - Lab Data Result diagrams: 07/01/19 00:50 07/01/19 00:50 Lab Results 07/01/19 07/01/19 07/01/19 Range/Units 00:50 00:50 00:50 WBC 22.8 H (3.8-10.6) k/uL RBC 4.76 (3.80-5.40) m/uL Hgb 13.5 (11.4-16.0) gm/dL Hct 42.8 (34.0-46.0) % MCV 90.0 (80.0-100.0) fL MCH 28.4 (25.0-35.0) pg MCHC 31.6 (31.0-37.0) g/dL RDW 16.1 H (11.5-15.5) % Plt Count 180 (150-450) k/uL Neutrophils % 82 % Lymphocytes % 11 % Monocytes % 6 % Eosinophils % 0 % Basophils % 1 % Neutrophils # 18.8 H (1.3-7.7) k/uL Lymphocytes # 2.4 (1.0-4.8) k/uL Monocytes # 1.3 H (0-1.0) k/uL Eosinophils # 0.0 (0-0.7) k/uL Basophils # 0.1 (0-0.2) k/uL Hypochromasia Slight Anisocytosis Slight PT (9.0-12.0) sec INR (<1.2) APTT (22.0-30.0) sec VBG pH 7.33 (7.31-7.41) VBG pCO2 34 L (37-51) mmHg VBG HCO3 17 L (24-28) mmol/L Sodium 130 L (137-145) mmol/L Potassium 5.8 H (3.5-5.1) mmol/L Chloride 100 (98-107) mmol/L Carbon Dioxide 19 L (22-30) mmol/L Anion Gap 11 mmol/L BUN 54 H (7-17) mg/dL Creatinine 1.44 H (0.52-1.04) mg/dL Est GFR (CKD-EPI)AfAm 42 (>60 ml/min/1.73 sqM) Est GFR (CKD-EPI)NonAf 36 (>60 ml/min/1.73 sqM) Glucose 84 (74-99) mg/dL Plasma Lactic Acid [place] (0.7-2.0) mmol/L Calcium 7.5 L (8.4-10.2) mg/dL Total Bilirubin 2.9 H (0.2-1.3) mg/dL AST 1799 H (14-36) U/L ALT 189 H (9-52) U/L Alkaline Phosphatase 296 H (38-126) U/L Creatine Kinase 204 H (30-135) U/L Troponin I (0.000-0.034) ng/mL Total Protein 4.7 L (6.3-8.2) g/dL Albumin 2.3 L (3.5-5.0) g/dL Urine Color Urine Appearance (Clear) Urine pH (5.0-8.0) Ur Specific [place] (1.001-1.035) Urine Protein (Negative) Urine Glucose (UA) (Negative) Urine Ketones (Negative) Urine Blood (Negative) Urine Nitrite (Negative) Urine Bilirubin (Negative) Urine Urobilinogen (<2.0) mg/dL Ur Leukocyte Esterase (Negative) Urine RBC (0-5) /hpf Urine WBC (0-5) /hpf Urine WBC Clumps (None) /hpf Ur Squamous Epith Cells (0-4) /hpf Amorphous Sediment (None) /hpf Urine Bacteria (None) /hpf Hyaline Casts (0-2) /lpf Urine Mucus (None) /hpf Urine Yeast (Budding) (None) /hpf 07/01/19 07/01/19 07/01/19 Range/Units 00:50 00:50 00:50 WBC (3.8-10.6) k/uL RBC (3.80-5.40) m/uL Hgb (11.4-16.0) gm/dL Hct (34.0-46.0) % MCV (80.0-100.0) fL MCH (25.0-35.0) pg MCHC (31.0-37.0) g/dL RDW (11.5-15.5) % Plt Count (150-450) k/uL Neutrophils % % Lymphocytes % % Monocytes % % Eosinophils % % Basophils % % Neutrophils # (1.3-7.7) k/uL Lymphocytes # (1.0-4.8) k/uL Monocytes # (0-1.0) k/uL Eosinophils # (0-0.7) k/uL Basophils # (0-0.2) k/uL Hypochromasia Anisocytosis PT 12.3 H (9.0-12.0) sec INR 1.2 H (<1.2) APTT 23.5 (22.0-30.0) sec VBG pH (7.31-7.41) VBG pCO2 (37-51) mmHg VBG HCO3 (24-28) mmol/L Sodium (137-145) mmol/L Potassium (3.5-5.1) mmol/L Chloride (98-107) mmol/L Carbon Dioxide (22-30) mmol/L Anion Gap mmol/L BUN (7-17) mg/dL Creatinine (0.52-1.04) mg/dL Est GFR (CKD-EPI)AfAm (>60 ml/min/1.73 sqM) Est GFR (CKD-EPI)NonAf (>60 ml/min/1.73 sqM) Glucose (74-99) mg/dL Plasma Lactic Acid [place] 2.8 H* (0.7-2.0) mmol/L Calcium (8.4-10.2) mg/dL Total Bilirubin (0.2-1.3) mg/dL AST (14-36) U/L ALT (9-52) U/L Alkaline Phosphatase (38-126) U/L Creatine Kinase (30-135) U/L Troponin I 0.048 H* (0.000-0.034) ng/mL Total Protein (6.3-8.2) g/dL Albumin (3.5-5.0) g/dL Urine Color Urine Appearance (Clear) Urine pH (5.0-8.0) Ur Specific [place] (1.001-1.035) Urine Protein (Negative) Urine Glucose (UA) (Negative) Urine Ketones (Negative) Urine Blood (Negative) Urine Nitrite (Negative) Urine Bilirubin (Negative) Urine Urobilinogen (<2.0) mg/dL Ur Leukocyte Esterase (Negative) Urine RBC (0-5) /hpf Urine WBC (0-5) /hpf Urine WBC Clumps (None) /hpf Ur Squamous Epith Cells (0-4) /hpf Amorphous Sediment (None) /hpf Urine Bacteria (None) /hpf Hyaline Casts (0-2) /lpf Urine Mucus (None) /hpf Urine Yeast (Budding) (None) /hpf 07/01/19 Range/Units 01:21 WBC (3.8-10.6) k/uL RBC (3.80-5.40) m/uL Hgb (11.4-16.0) gm/dL Hct (34.0-46.0) % MCV (80.0-100.0) fL MCH (25.0-35.0) pg MCHC (31.0-37.0) g/dL RDW (11.5-15.5) % Plt Count (150-450) k/uL Neutrophils % % Lymphocytes % % Monocytes % % Eosinophils % % Basophils % % Neutrophils # (1.3-7.7) k/uL Lymphocytes # (1.0-4.8) k/uL Monocytes # (0-1.0) k/uL Eosinophils # (0-0.7) k/uL Basophils # (0-0.2) k/uL Hypochromasia Anisocytosis PT (9.0-12.0) sec INR (<1.2) APTT (22.0-30.0) sec VBG pH (7.31-7.41) VBG pCO2 (37-51) mmHg VBG HCO3 (24-28) mmol/L Sodium (137-145) mmol/L Potassium (3.5-5.1) mmol/L Chloride (98-107) mmol/L Carbon Dioxide (22-30) mmol/L Anion Gap mmol/L BUN (7-17) mg/dL Creatinine (0.52-1.04) mg/dL Est GFR (CKD-EPI)AfAm (>60 ml/min/1.73 sqM) Est GFR (CKD-EPI)NonAf (>60 ml/min/1.73 sqM) Glucose (74-99) mg/dL Plasma Lactic Acid [place] (0.7-2.0) mmol/L Calcium (8.4-10.2) mg/dL Total Bilirubin (0.2-1.3) mg/dL AST (14-36) U/L ALT (9-52) U/L Alkaline Phosphatase (38-126) U/L Creatine Kinase (30-135) U/L Troponin I (0.000-0.034) ng/mL Total Protein (6.3-8.2) g/dL Albumin (3.5-5.0) g/dL Urine Color Dark Brown Urine Appearance Cloudy H (Clear) Urine pH 5.5 (5.0-8.0) Ur Specific [place] 1.021 (1.001-1.035) Urine Protein 2+ H (Negative) Urine Glucose (UA) Negative (Negative) Urine Ketones Negative (Negative) Urine Blood Large H (Negative) Urine Nitrite Negative (Negative) Urine Bilirubin 1+ H (Negative) Urine Urobilinogen 4.0 (<2.0) mg/dL Ur Leukocyte Esterase Small H (Negative) Urine RBC >182 H (0-5) /hpf Urine WBC 33 H (0-5) /hpf Urine WBC Clumps Few H (None) /hpf Ur Squamous Epith Cells 4 (0-4) /hpf Amorphous Sediment Rare H (None) /hpf Urine Bacteria Occasional H (None) /hpf Hyaline Casts 101 H (0-2) /lpf Urine Mucus Many H (None) /hpf Urine Yeast (Budding) Occasional H (None) /hpf Critical Care Time Critical Care Time: Yes Total Critical Care Time: 45 Critical Care Time: Critical Care Time Critical care time was exclusive of separately billable procedures and treating other patients and teaching time. Critical care was necessary to treat or prevent imminent or life-threatening deterioration. Given the critical condition in which the patient arrived, the patient was immediately assessed by myself and the nurse, and cardiac monitoring initiated due to the potential for rapid decompensation of the patient's clinical condition. During the course of the patients stay, I spent a considerable amount of time at the bedside performing serial re-evaluations of the patient's hemodynamic and clinical status because of the recognized potential threat to life or limb in this condition. I then had a chance to review not only all of the available current laboratory and radiographic studies obtained today, but I also reviewed old records available to me at the time. Additionally, any ancillary information available including reinforcing steel worker wire mesh records were reviewed. Sequential vital signs were obtained. Disposition Clinical Impression: Acute DVT (deep venous thrombosis), Metastatic melanoma, Respiratory insufficiency, UTI (urinary tract infection), LFT elevation, Melanoma metastatic to lung, Pneumonia, Septic shock Disposition: ADMITTED IP TO THIS HOSP Condition: Critical Is patient prescribed a controlled substance at d/c from ED?: No
[2019-07-01 01:12] LABS: VBG PH 7.33 (7.31-7.41)
--- NOTE | 2019-07-01 01:13 | XR ---
EXAMINATION TYPE: XR chest 1V portable DATE OF EXAM: 07/01/2019 COMPARISON: 06/27/2019 HISTORY: Fever TECHNIQUE: Single frontal view of the chest is obtained. FINDINGS: Supine view shows the endotracheal tube is 2 cm from the emeka. There is mild pulmonary i nterstitial edema. There is right central venous catheter with tip in the superior vena cava. There a re chest leads. There is a mild left perihilar infiltrate. IMPRESSION: Endotracheal tube is low and could be pulled back 1 to 2 cm. There is a new mild left pe rihilar pulmonary infiltrate compared to last exam. Mild pulmonary interstitial edema.
[2019-07-01] MEDS ORDERED: SODIUM CHLORIDE 0.9% 1,000 ML IV ONE ×6 (01:16→13:28)
[2019-07-01 01:30] LABS: Anisocytosis Slight; Basophils # (A) 0.1 k/uL (0-0.2); Basophils % (A) 1 %; Eosinophils % (A) 0 %; HCT 42.8 % (34.0-46.0); HGB 13.5 gm/dL (11.4-16.0); Hypochromasia Slight; Lymphocytes # (A) 2.4 k/uL (1.0-4.8); Lymphocytes % (A) 11 %; MCH 28.4 pg (25.0-35.0); MCHC 31.6 g/dL (31.0-37.0); Mean Platelet Volume 7.9; Monocytes # (A) 1.3 k/uL (0-1.0); Monocytes % (A) 6 %; Neutrophils # (A) 18.8 k/uL (1.3-7.7); Neutrophils % (A) 82 %; Platelet Count 180 k/uL (150-450); RBC 4.76 m/uL (3.80-5.40); RDW 16.1 % (11.5-15.5); WBC 22.8 k/uL (3.8-10.6)
[2019-07-01] MEDS ORDERED: fentaNYL (PF) 1,000 MCG in SODIUM CHLORIDE 0.9% 80 ML IV SCH (01:30)
[2019-07-01 01:44] LABS: Albumin 2.3 g/dL (3.5-5.0); Calcium 7.5 mg/dL (8.4-10.2); Potassium 5.8 mmol/L (3.5-5.1); Total Bilirubin 2.9 mg/dL (0.2-1.3); Total Protein 4.7 g/dL (6.3-8.2)
[2019-07-01 01:50] LABS: INR 1.2 (<1.2); Partial Thromboplastin Time 23.5 sec (22.0-30.0); Prothrombin Time 12.3 sec (9.0-12.0)
[2019-07-01 02:02] LABS: Amorphous Sediment,Urine Rare /hpf; Appearance,Urine Cloudy (Clear); Bacteria,Urine Occasional /hpf; Bilirubin,Urine 1+ (Negative); Blood,Urine Large (Negative); Budding Yeast,Urine Occasional /hpf; Color,Urine Dark Brown; Glucose,Urine (UA) Negative (Negative); Hyaline Casts,Urine 101 /lpf (0-2); Ketones,Urine Negative (Negative); Leukocyte Esterase,Urine Small (Negative); Mucus,Urine Many /hpf; Nitrite,Urine Negative (Negative); PH, Urine 5.5 (5.0-8.0); Protein,Urine 2+ (Negative); RBC,Urine >182 /hpf (0-5); Specific Gravity,Urine 1.021 (1.001-1.035); Squamous Epithelial Cell,Urine 4 /hpf (0-4)
[2019-07-01] MEDS ORDERED: INSULIN REGULAR 100 UNIT/ML VIAL IV ONE (02:09)
[2019-07-01] MEDS ORDERED: CALCIUM GLUCONATE 1 GM in SODIUM CHLORIDE 0.9% 100 ML IVPB ONE (02:15)
[2019-07-01] MEDS: DEXTROSE 10 % IN WATER 250 ML IV ONE ×2 (02:19→18:21)
--- NOTE | 2019-07-01 02:20 | XR ---
EXAMINATION TYPE: XR chest 1V confirm line [facility] DATE OF EXAM: 07/01/2019 COMPARISON: Today HISTORY: Check line placement. TECHNIQUE: Single frontal view of the chest is obtained. FINDINGS: Endotracheal tube is 2.7 cm from the emeka. There is right central venous catheter with t ip in the superior vena cava. Nasogastric tube is in the stomach. There is some mild left perihilar p ulmonary infiltrate. There is no gross heart failure. There are chest leads. Costophrenic angles are clear. There is left jugular catheter with the tip in the superior vena cava. IMPRESSION: Mild left perihilar infiltrate unchanged. No pneumothorax.
[2019-07-01] MEDS ORDERED: NALOXONE 0.4 MG/ML 1 ML VIAL IV PRN (02:22)
[2019-07-01 03:33] LABS: Glucose,Whole Blood 114 mg/dL (75-99)
[2019-07-01] MEDS: SODIUM CHLORIDE 0.9% 1,000 ML IV SCH ×3 (03:46→18:04)
[2019-07-01] MEDS: PROPOFOL 1,000 MG in EMPTY BAG 1 BAG IV SCH ×4 (03:47→18:57)
[2019-07-01 04:43] LABS: ABG Base Excess -10.3 mmol/L; ABG HCO3 17 mmol/L (21-25); ABG Oxygen Saturation 99.1 % (94-97); ABG PCO2 40 mmHg (35-45); ABG PH 7.24 (7.35-7.45); ABG PO2 301 mmHg (83-108); ABG TCO2 18 mmol/L (19-24)
[2019-07-01 04:57] LABS: Basophils % (A) 0 %; Eosinophils % (A) 0 %; HCT 35.1 % (34.0-46.0); HGB 11.2 gm/dL (11.4-16.0); Hypochromasia Slight; Lymphocytes # (A) 2.9 k/uL (1.0-4.8); Lymphocytes % (A) 12 %; MCHC 31.9 g/dL (31.0-37.0); MCV 90.9 fL (80.0-100.0); Monocytes # (A) 1.4 k/uL (0-1.0); Monocytes % (A) 6 %; Neutrophils # (A) 19.8 k/uL (1.3-7.7); Neutrophils % (A) 81 %; Platelet Count 169 k/uL (150-450); RBC 3.86 m/uL (3.80-5.40); RDW 15.8 % (11.5-15.5); WBC 24.5 k/uL (3.8-10.6)
[2019-07-01] MEDS ORDERED: VANCOMYCIN IV PER PHARMACY 1 EACH MISC MISCELLANE PRN (05:20)
[2019-07-01 05:23] LABS: Albumin 1.7 g/dL (3.5-5.0); Calcium 6.5 mg/dL (8.4-10.2); Potassium 4.9 mmol/L (3.5-5.1); Total Bilirubin 2.8 mg/dL (0.2-1.3); Total Protein 3.6 g/dL (6.3-8.2)
[2019-07-01] MEDS ORDERED: AZTREONAM 2 GM in SODIUM CHLORIDE 0.9% 100 ML IVPB SCH (06:00)
--- NOTE | 2019-07-01 06:16 | P.HPIM ---
History of Present Illness H&P Date: 07/01/19 The patient is a 74 yo F with a PMH of metastatic melanoma (dx ~ 18 months ago, following with Dr Morocho), recent LLE DVT (on Eliquis), HTN, and HLD, who was recently discharged from [facility] on 06/27 after a 5 day hospitalization for HCAP and UTI. The patient was discharged home on Levaquin, though as per the documentation, the patient had not been eating or drinking well and had been confused. No family at the bedside, thereby history obtained from the chart. The patient had reported become increasingly confused overnight at which time EMS was activated. The patient was noted to be hypotensive with concerns for septic shock for which she was taken to another facility where she received IM Cefepime along with 1 L of NS. The patient was subsequently transferred to [facility] ED where she was noted to be lethargic and in septic shock. The patient was intubated and a L IJ was also placed. She received an additional 2 L of NS. She underwent an extensive evaluation w/ WBC count 24.5, Hgb 11.2, platelets 169, Na 130, K 5.8, CO2 19, BUN 54, Cr 1.44, lactic acid 2.8, T bili 2.9, AST 1799, ALT 189, Troponi n 0.048, albumin 2.3, and UA consistent with a UTI. She was admitted to the MICU for further management of septic shock secondary to HCAP and UTI. Review of Systems Pertinent positives and negatives as discussed in HPI, a complete review of systems was performed and all other systems are negative. Past Medical History Past Medical History: Cancer, Deep Vein Thrombosis (DVT), Hyperlipidemia, Hypertension, Pneumonia, Rheumatoid Arthritis (RA) Additional Past Medical History / Comment(s): metatastic melanoma dx 2018 mets spleen, kidney, back, lung , LLE DVT History of Any Multi-Drug Resistant Organisms: None Reported Past Surgical History: Bladder Surgery, Hernia Repair, Hysterectomy, Orthopedic Surgery Additional Past Surgical History / Comment(s): tumor removal right breast, 3 knee replacements, T& A, tropean eye surgery Past Anesthesia/Blood Transfusion Reactions: No Reported Reaction Past Psychological History: No Psychological Hx Reported Smoking Status: Never smoker Past Alcohol Use History: None Reported Past Drug Use History: None Reported - Past Family History Father Family Medical History: Cancer Additional Family Medical History / Comment(s): lung cancer Mother Family Medical History: Cancer Additional Family Medical History / Comment(s): intestinal cancer Sister(s) Family Medical History: Cancer Additional Family Medical History / Comment(s): breast cancer Family Additional Family Medical History / Comment(s): Denies history of cancer Medications and Allergies Home Medications Medication Instructions Recorded Confirmed Type Meloxicam [Mobic] 7.5 mg PO BID 06/08/19 06/23/19 History Nortriptyline [Pamelor] 10 mg PO HS 06/08/19 06/23/19 History Nystatin-Triamcinolone Oint 1 applic TOPICAL BID PRN 06/08/19 06/23/19 History [Mycolog 100,000-0.1 Unit/gm-% Oint] Omeprazole 20 mg PO DAILY 06/08/19 06/23/19 History Prochlorperazine [Compazine] 10 mg PO Q6H PRN 06/08/19 06/23/19 History Sertraline [Zoloft] 100 mg PO BID 06/08/19 06/23/19 History Tafinlar 75mg Capsule 150 mg PO Q12H 06/08/19 06/23/19 History Trametinib Dimethyl Sulfoxide 2 mg PO DAILY 06/08/19 06/23/19 History [Mekinist] amLODIPine BESYLATE [Norvasc] 2.5 mg PO DAILY 06/08/19 06/23/19 History Sennosides [Senokot] 8.6 mg PO BID 30 Days #60 tab 06/11/19 06/23/19 Rx Apixaban [Eliquis] 5 mg PO BID 06/23/19 06/23/19 History HYDROcodone/APAP 5-325MG [[place] 1 tab PO Q4HR PRN 06/23/19 06/23/19 History 5-325] Ipratropium-Albuterol Nebulize 3 ml INHALATION RT-QID #90 06/27/19 Rx [Duoneb 0.5 mg-3 mg/3 ml Soln] ampul.neb Levofloxacin [Levaquin] 750 mg PO DAILY 4 Days #4 tab 06/27/19 Rx Allergies Allergy/AdvReac Type Severity Reaction Status Date / Time ciprofloxacin [From Cipro] Allergy Hallucinati Verified 06/23/19 15:41 ons Penicillins Allergy Unknown Verified 06/23/19 15:41 Childhood Physical Exam Vitals: Vital Signs Temp Pulse Resp BP Pulse Ox 07/01/19 05:00 101 H 21 96 07/01/19 04:30 98.6 F 107 H 16 98 07/01/19 04:00 113 H 20 92/63 100 07/01/19 03:30 113 H 22 85/56 94 L 07/01/19 03:00 120 H 16 99/58 98 07/01/19 02:30 112 H 16 102/56 97 07/01/19 02:00 113 H 16 98/60 98 07/01/19 01:50 114 H 16 103/26 99 07/01/19 01:40 115 H 16 115/50 99 07/01/19 01:30 112 H 16 101/38 99 07/01/19 01:20 111 H 16 88/45 97 07/01/19 01:10 112 H 14 103/52 97 07/01/19 01:00 126 H 14 94 L 07/01/19 00:53 106 H 18 95 07/01/19 00:42 98.2 F 112 H 28 H 82/69 96 Intake and Output 06/30/19 06/30/19 07/01/19 14:59 22:59 06:59 Intake Total 1339.783 Output Total 130 Balance 1209.783 Intake: IV 1300 Sodium Chloride 0.9% 1, 300 000 ml @ 150 mls/hr IV . Q6H40M [facility] Rx#:[id number] Sodium Chloride 0.9% 1, 1000 000 ml @ 999 mls/hr IV . Q1H1M [facility] Rx#:[id number] Intake, IV Titration 39.783 Amount Norepinephrine 32 mg In 14.383 Sodium Chloride 0.9% 218 ml @ 0.05 MCG/KG/MIN 1. 765 mls/hr IV .Q24H [facility] Rx#:[id number] Propofol 1,000 mg In 6.701 Empty Bag 1 bag @ Titrate IV .Q0M [facility] Rx#: [id number] fentaNYL (PF) 1,000 mcg 18.699 In Sodium Chloride 0.9% 80 ml @ 1 MCG/KG/HR 7.53 mls/hr IV .[id number] [facility] Rx #:[id number] Output: Urine 130 Other: Weight 75.296 kg ABP, PAP, CO, CI - Last 8 Hours Arterial Blood Pressure 93/52 Arterial Blood Pressure 119/58 General: Elderly intubated F, no distress, appears at stated age Derm: no unusual rashes/lesions no unusual ecchymoses, warm, dry Head: atraumatic, normocephalic, symmetric Eyes: Anicteric sclera, pupils equal round reactive to light ENT: Nose and ears atraumatic, ETT in place Neck: No thyromegaly, no cervical lymphadenopathy, trachea midline, supple Mouth: no lip lesion Cardiovascular: Tachycardic, S1/S2 wnll, no murmur, positive posterior tibial pu lse bilateral, 1+ yazmin LE edema, capillary refill less than 2 seconds Lungs: Yazmin rales with scattered coarse breath sounds, on mech vent Abdominal: soft, nontender to palpation, no guarding, no appreciable organomegaly Ext: no gross muscle atrophy, unable to assess strength as patient intubated and not following commands Neuro: Patient unarousable to sternal rub, unable to perform complete neuro exam Psych: Patient unarousable to sternal rub Results CBC & Chem 7: 07/01/19 04:49 07/01/19 00:50 Labs: Abnormal Lab Results - Last 24 Hours (Table) 07/01/19 07/01/19 07/01/19 Range/Units 00:50 00:50 00:50 WBC 22.8 H (3.8-10.6) k/uL Hgb (11.4-16.0) gm/dL RDW 16.1 H (11.5-15.5) % Neutrophils # 18.8 H (1.3-7.7) k/uL Monocytes # 1.3 H (0-1.0) k/uL PT (9.0-12.0) sec INR (<1.2) ABG pH (7.35-7.45) ABG pO2 (83-108) mmHg ABG HCO3 (21-25) mmol/L ABG Total CO2 (19-24) mmol/L ABG O2 Saturation (94-97) % VBG pCO2 34 L (37-51) mmHg VBG HCO3 17 L (24-28) mmol/L Sodium 130 L (137-145) mmol/L Potassium 5.8 H (3.5-5.1) mmol/L Carbon Dioxide 19 L (22-30) mmol/L BUN 54 H (7-17) mg/dL Creatinine 1.44 H (0.52-1.04) mg/dL POC Glucose (mg/dL) (75-99) mg/dL Plasma Lactic Acid Kehinde (0.7-2.0) mmol/L Calcium 7.5 L (8.4-10.2) mg/dL Total Bilirubin 2.9 H (0.2-1.3) mg/dL AST 1799 H (14-36) U/L ALT 189 H (9-52) U/L Alkaline Phosphatase 296 H (38-126) U/L Creatine Kinase 204 H (30-135) U/L Troponin I (0.000-0.034) ng/mL Total Protein 4.7 L (6.3-8.2) g/dL Albumin 2.3 L (3.5-5.0) g/dL Urine Appearance (Clear) Urine Protein (Negative) Urine Blood (Negative) Urine Bilirubin (Negative) Ur Leukocyte Esterase (Negative) Urine RBC (0-5) /hpf Urine WBC (0-5) /hpf Urine WBC Clumps (None) /hpf Amorphous Sediment (None) /hpf Urine Bacteria (None) /hpf Hyaline Casts (0-2) /lpf Urine Mucus (None) /hpf Urine Yeast (Budding) (None) /hpf 07/01/19 07/01/19 07/01/19 Range/Units 00:50 00:50 00:50 WBC (3.8-10.6) k/uL Hgb (11.4-16.0) gm/dL RDW (11.5-15.5) % Neutrophils # (1.3-7.7) k/uL Monocytes # (0-1.0) k/uL PT 12.3 H (9.0-12.0) sec INR 1.2 H (<1.2) ABG pH (7.35-7.45) ABG pO2 (83-108) mmHg ABG HCO3 (21-25) mmol/L ABG Total CO2 (19-24) mmol/L ABG O2 Saturation (94-97) % VBG pCO2 (37-51) mmHg VBG HCO3 (24-28) mmol/L Sodium (137-145) mmol/L Potassium (3.5-5.1) mmol/L Carbon Dioxide (22-30) mmol/L BUN (7-17) mg/dL Creatinine (0.52-1.04) mg/dL POC Glucose (mg/dL) (75-99) mg/dL Plasma Lactic Acid Kehinde 2.8 H* (0.7-2.0) mmol/L Calcium (8.4-10.2) mg/dL Total Bilirubin (0.2-1.3) mg/dL AST (14-36) U/L ALT (9-52) U/L Alkaline Phosphatase (38-126) U/L Creatine Kinase (30-135) U/L Troponin I 0.048 H* (0.000-0.034) ng/mL Total Protein (6.3-8.2) g/dL Albumin (3.5-5.0) g/dL Urine Appearance (Clear) Urine Protein (Negative) Urine Blood (Negative) Urine Bilirubin (Negative) Ur Leukocyte Esterase (Negative) Urine RBC (0-5) /hpf Urine WBC (0-5) /hpf Urine WBC Clumps (None) /hpf Amorphous Sediment (None) /hpf Urine Bacteria (None) /hpf Hyaline Casts (0-2) /lpf Urine Mucus (None) /hpf Urine Yeast (Budding) (None) /hpf 07/01/19 07/01/19 07/01/19 Range/Units 01:21 03:22 04:39 WBC (3.8-10.6) k/uL Hgb (11.4-16.0) gm/dL RDW (11.5-15.5) % Neutrophils # (1.3-7.7) k/uL Monocytes # (0-1.0) k/uL PT (9.0-12.0) sec INR (<1.2) ABG pH 7.24 L (7.35-7.45) ABG pO2 301 H (83-108) mmHg ABG HCO3 17 L (21-25) mmol/L ABG Total CO2 18 L (19-24) mmol/L ABG O2 Saturation 99.1 H (94-97) % VBG pCO2 (37-51) mmHg VBG HCO3 (24-28) mmol/L Sodium (137-145) mmol/L Potassium (3.5-5.1) mmol/L Carbon Dioxide (22-30) mmol/L BUN (7-17) mg/dL Creatinine (0.52-1.04) mg/dL POC Glucose (mg/dL) 114 H (75-99) mg/dL Plasma Lactic Acid Kehinde (0.7-2.0) mmol/L Calcium (8.4-10.2) mg/dL Total Bilirubin (0.2-1.3) mg/dL AST (14-36) U/L ALT (9-52) U/L Alkaline Phosphatase (38-126) U/L Creatine Kinase (30-135) U/L Troponin I (0.000-0.034) ng/mL Total Protein (6.3-8.2) g/dL Albumin (3.5-5.0) g/dL Urine Appearance Cloudy H (Clear) Urine Protein 2+ H (Negative) Urine Blood Large H (Negative) Urine Bilirubin 1+ H (Negative) Ur Leukocyte Esterase Small H (Negative) Urine RBC >182 H (0-5) /hpf Urine WBC 33 H (0-5) /hpf Urine WBC Clumps Few H (None) /hpf Amorphous Sediment Rare H (None) /hpf Urine Bacteria Occasional H (None) /hpf Hyaline Casts 101 H (0-2) /lpf Urine Mucus Many H (None) /hpf Urine Yeast (Budding) Occasional H (None) /hpf 07/01/19 Range/Units 04:49 WBC 24.5 H (3.8-10.6) k/uL Hgb 11.2 L (11.4-16.0) gm/dL RDW 15.8 H (11.5-15.5) % Neutrophils # 19.8 H (1.3-7.7) k/uL Monocytes # 1.4 H (0-1.0) k/uL PT (9.0-12.0) sec INR (<1.2) ABG pH (7.35-7.45) ABG pO2 (83-108) mmHg ABG HCO3 (21-25) mmol/L ABG Total CO2 (19-24) mmol/L ABG O2 Saturation (94-97) % VBG pCO2 (37-51) mmHg VBG HCO3 (24-28) mmol/L Sodium (137-145) mmol/L Potassium (3.5-5.1) mmol/L Carbon Dioxide (22-30) mmol/L BUN (7-17) mg/dL Creatinine (0.52-1.04) mg/dL POC Glucose (mg/dL) (75-99) mg/dL Plasma Lactic Acid Kehinde (0.7-2.0) mmol/L Calcium (8.4-10.2) mg/dL Total Bilirubin (0.2-1.3) mg/dL AST (14-36) U/L ALT (9-52) U/L Alkaline Phosphatase (38-126) U/L Creatine Kinase (30-135) U/L Troponin I (0.000-0.034) ng/mL Total Protein (6.3-8.2) g/dL Albumin (3.5-5.0) g/dL Urine Appearance (Clear) Urine Protein (Negative) Urine Blood (Negative) Urine Bilirubin (Negative) Ur Leukocyte Esterase (Negative) Urine RBC (0-5) /hpf Urine WBC (0-5) /hpf Urine WBC Clumps (None) /hpf Amorphous Sediment (None) /hpf Urine Bacteria (None) /hpf Hyaline Casts (0-2) /lpf Urine Mucus (None) /hpf Urine Yeast (Budding) (None) /hpf Assessment and Plan Plan: Septic shock secondary to UTI and HCAP -Documented Penicillin allergy, though detailed chart review shows that patient received Ceftriaxone during prior hospitalization without incident. She also received Cefepime at outside facility prior to transfer. -Will switch patient from Aztreonam to Cefepime 2 gm q8h -C/w Vancomycin -C/w Levophed infusion -F/u urine and blood cultures -C/w NS 150 cc/hr Lethargy with hypoxic respiratory failure requiring mechanical ventilation -Ventilator bundle -Pulmonary consulted Bilateral lower extremity edema, likely third-spacing due to severe protein calorie malnutrition -Echocardiogram from 06/23 revealed no systolic or diastolic dysfunction -CXR from ED showing new infiltrate with no gross heart failure noted Lactic acidosis -Secondary to septic shock -Monitor to resolution Hyponatremia, likely due to poor oral intake -Monitor for now -C/w NS 150 cc/hr BILL, likely due to septic shock -S/p 3 L of NS -C/w 150 cc/hr NS for now -Monitor BMP daily Abnormal LFTs, likely from metastatic lesions of the liver w/ progression -Continue to monitor LFTs -Avoid hepatotoxic agents Severe protein-calorie malnutrition -Will need lan manager consult Metastatic melanoma, on chemotherapy (Mekinist and Tafinlar) -Consult oncology Recent diagnosis of LLE DVT -C/w home med: Adriannaquindy Hyperkalemia, resolved HTN -Hold antihypertensives in setting of septic shock DVT prophylaxis -Eliquis The patient is admitted with an anticipated greater than 2 midnight stay for evaluation of septic shock CODE STATUS: Full Code Anticipated discharge date: 4-[address]: Home/[facility] A total of 45 minutes was spent on the care of this complex patient more than 50% of the time was spent in counseling and care coordination.
[2019-07-01] MEDS ORDERED: CEFEPIME 2 GM in SODIUM CHLORIDE 0.9% 100 ML IVPB SCH (06:30)
--- NOTE | 2019-07-01 06:46 | XR ---
EXAMINATION TYPE: XR chest 1V portable DATE OF EXAM: 07/01/2019 CLINICAL HISTORY: Difficulty breathing progress study. History of metastatic melanoma. TECHNIQUE: Single AP portable upright view of the chest is obtained. COMPARISON: Chest x-ray from earlier today and older studies. CTA chest June 08, 2019. FINDINGS: An endotracheal tube, oral gastric tube, left internal jugular central venous catheter, an d right internal jugular Mediport catheter are all stable in appearance. Background chronic parenchym a change with scattered bilateral nodules most prominent lower lungs. No new suspicious focal airspac e opacity or pneumothorax. Suspect stable small to tiny left pleural effusion. Hilar prominence corre lates to underlying pulmonary artery hypertension on CT. Cardiac silhouette size is stable and upper limits of normal. Left axillary surgical clips redemonstrated. Osseous structures intact. IMPRESSION: Overall stable findings, chronic parenchymal changes and metastatic malignancy. Probabl e stable small to tiny left pleural effusion. No new infiltrate.
[2019-07-01] MEDS ORDERED: VANCOMYCIN 1,500 MG in SODIUM CHLORIDE 0.9% 250 ML IVPB SCH (07:00)
[2019-07-01 07:22] LABS: Glucose,Whole Blood 83 mg/dL (75-99)
[2019-07-01] MEDS: CHLORHEXIDINE GLUCONATE 15 ML CUP MUCOUS MEM SCH ×2 (08:01→20:13)
[2019-07-01] MEDS: CEFEPIME 2 GM in SODIUM CHLORIDE 0.9% 100 ML IVPB SCH ×2 (08:03→20:29)
[2019-07-01] MEDS ORDERED: HEPARIN SODIUM,PORCINE 5,000 UNIT/ML 1 ML VIAL IV PRN (08:49)
[2019-07-01] MEDS ORDERED: HEPARIN SOD,PORK IN 0.45% NACL 25,000 UNIT in 0.45% NACL 1 250ML.BAG IV SCH (09:00)
[2019-07-01] MEDS ORDERED: PANTOPRAZOLE 40 MG/10 ML VIAL IV SCH (09:00)
[2019-07-01] MEDS: HYDROCORTISONE SUCCINATE 100 MG/2 ML VIAL IV SCH ×2 (09:28→15:10)
[2019-07-01 09:29] LABS: INR 1.2 (<1.2); Partial Thromboplastin Time 25.6 sec (22.0-30.0); Prothrombin Time 12.8 sec (9.0-12.0)
--- NOTE | 2019-07-01 09:31 | P.CNPUL ---
History of Present Illness Consult date: 07/01/19 Requesting physician: Nasra Krishnan Reason for consult: hypoxemia, abnormal CXR/CT Chief complaint: Confusion, hypotension, septic shock History of present illness: This is a 74-year-old female patient of Dr. Koroma, with past medical history of metastatic melanoma with metastasis to the spleen, bilateral adrenal glands, and multiple lung nodules. Patient was diagnosed in May 2018, she underwent wide right upper back lesion excision with sentinel node biopsy on 07/10/2018 showed malignant melanoma, she was seen by oncology at the [facility] was recommended adjuvant therapy with Nivolumab, versus Dabrafenib+Trametinib. She didn't want to receive treatment closer to home and she was seen by Dr. Morocho. Opdivo was started and patient received 7 cycles. However patient noted increase in size of the right scapular mass, and patient also felt a new nodule in the right upper extremity. Most recent PET scan on 03/21/2019 revealed increase in size of the right upper back mass with elevated SUV, increased right mid back lesion with increased uptake, bilateral lung nodules with some new lung nodulles, as well as a spleen lesion and a questionable focus uptake in the central portion of the liver. Patient was started on Tafinlar-Mekinist on 06/08/2019. Patient started having multiple complaints including fevers, increased shortness of breath, generalized weakness, nausea and vomiting. She also noticed extremity swelling, and was found to have left lower extremity DVT extending from the popliteal into the calf veins, CT angios chest was negative for PE, but did show pneumonitis in addition to the metastatic lung nodules. Liver enzymes also increased since start of her treatment. We saw the patient in consultation during her previous hospitalization on 06/24/2019 for possibility of left lower lobe pneumonia, and urinary tract infection. Patient was treated with antibiotics, final urine culture showed E. coli which was resistant to Levaquin, ciprofloxacin, Augmentin, cefoxitin and cefazolin. Sputum culture and blood cultures were negative. Patient was sent home on Levaquin on 06/27/2019. On 07/01/2019 patient was brought into the emergency department per EMS for evaluation of increased weakness, not feeling well, altered mentation. She has had poor oral intake, has been very confused. Septic workup was initiated at an outside facility, she was profoundly hypotensive, was given IV hydration, and Lasix for treatment of pulmonary edema. When she arrived at [facility] she was quite lethargic, hypotensive, tachycardic, and decision was made to intubate the patient for airway protection. Her labs resulted with multiple significant abnormalities, leukocytosis, hyponatremia hyperkalemia acute kidney injury with prerenal azotemia. Chest x-ray showed mild pulmonary interstitial edema, and mild left perihilar infiltrate. ABGs showed pO2 of 301, pCO2 40, pH is 7.24, this was done on FiO2 of 100%. Plasma lactic acid 2.8, urinalysis shows large amount of blood, small amount of lupus, white blood cells, bacteria and budding yeast. Broad-spectrum antibiotics have been started in the form of cefepime and vancomycin. And has received a total of 4 L of fluids, currently IV fluids infusing at a rate of 150 ML per hour with 0.9 normal saline. Norepinephrine is at 0.25 mics per kilo per minute, and diprivan is at 35 mics per kilo per m inute. Review of Systems All systems: negative Constitutional: Reports anorexia, Reports poor appetite, Reports weakness, Denies chills, Denies fever Eyes: denies blurred vision, denies pain Ears, nose, mouth and throat: Denies headache, Denies sore throat Cardiovascular: Denies chest pain, Denies shortness of breath Respiratory: Denies cough Gastrointestinal: Denies abdominal pain, Denies diarrhea, Denies nausea, Denies vomiting Genitourinary: Denies dysuria, Denies hematuria Musculoskeletal: Denies myalgias Integumentary: Denies pruritus, Denies rash Neurological: Reports change in mentation, Reports weakness, Denies numbness Psychiatric: Denies anxiety, Denies depression Endocrine: Denies fatigue, Denies weight change Past Medical History Past Medical History: Cancer, Deep Vein Thrombosis (DVT), Hyperlipidemia, Hypertension, Pneumonia, Rheumatoid Arthritis (RA) Additional Past Medical History / Comment(s): metatastic melanoma dx 2018 mets spleen, kidney, back, lung , LLE DVT History of Any Multi-Drug Resistant Organisms: None Reported Past Surgical History: Bladder Surgery, Hernia Repair, Hysterectomy, Orthopedic Surgery Additional Past Surgical History / Comment(s): tumor removal right breast, 3 knee replacements, T& A, tropean eye surgery Past Anesthesia/Blood Transfusion Reactions: No Reported Reaction Past Psychological History: No Psychological Hx Reported Smoking Status: Never smoker Past Alcohol Use History: None Reported Past Drug Use History: None Reported - Past Family History Father Family Medical History: Cancer Additional Family Medical History / Comment(s): lung cancer Mother Family Medical History: Cancer Additional Family Medical History / Comment(s): intestinal cancer Sister(s) Family Medical History: Cancer Additional Family Medical History / Comment(s): breast cancer Family Additional Family Medical History / Comment(s): Denies history of cancer Medications and Allergies Home Medications Medication Instructions Recorded Confirmed Type Meloxicam [Mobic] 7.5 mg PO BID 06/08/19 07/01/19 History Nortriptyline [Pamelor] 10 mg PO HS 06/08/19 07/01/19 History Nystatin-Triamcinolone Oint 1 applic TOPICAL BID PRN 06/08/19 07/01/19 History [Mycolog 100,000-0.1 Unit/gm-% Oint] Omeprazole 20 mg PO DAILY 06/08/19 07/01/19 History Prochlorperazine [Compazine] 10 mg PO Q6H PRN 06/08/19 07/01/19 History Sertraline [Zoloft] 100 mg PO BID 06/08/19 07/01/19 History Tafinlar 75mg Capsule 150 mg PO Q12H 06/08/19 07/01/19 History Trametinib Dimethyl Sulfoxide 2 mg PO DAILY 06/08/19 07/01/19 History [Mekinist] amLODIPine BESYLATE [Norvasc] 2.5 mg PO DAILY 06/08/19 07/01/19 History Sennosides [Senokot] 8.6 mg PO BID 30 Days #60 tab 06/11/19 07/01/19 Rx Apixaban [Eliquis] 5 mg PO BID 06/23/19 07/01/19 History HYDROcodone/APAP 5-325MG [[place] 1 tab PO Q4HR PRN 06/23/19 07/01/19 History 5-325] Ipratropium-Albuterol Nebulize 3 ml INHALATION RT-QID #90 06/27/19 07/01/19 Rx [Duoneb 0.5 mg-3 mg/3 ml Soln] ampul.neb Levofloxacin [Levaquin] 750 mg PO DAILY 4 Days #4 tab 06/27/19 07/01/19 Rx Allergies Allergy/AdvReac Type Severity Reaction Status Date / Time ciprofloxacin [From Cipro] Allergy Hallucinati Verified 07/01/19 07:44 ons Penicillins Allergy Unknown Verified 07/01/19 07:44 Childhood Physical Exam Vitals: Vital Signs Temp Pulse Resp BP Pulse Ox 07/01/19 08:30 99 26 H 07/01/19 08:00 98.8 F 100 26 H 110/28 97 07/01/19 07:30 97 26 H 110/28 97 07/01/19 07:00 96 26 H 96 07/01/19 06:30 96 26 H 92 L 07/01/19 06:00 100 22 94 L 07/01/19 05:30 101 H 22 95 07/01/19 05:00 101 H 21 96 07/01/19 04:30 98.6 F 107 H 16 98 07/01/19 04:00 113 H 20 92/63 100 07/01/19 03:30 113 H 22 85/56 94 L 07/01/19 03:00 120 H 21 99/58 98 07/01/19 02:30 112 H 16 102/56 97 07/01/19 02:00 113 H 16 98/60 98 07/01/19 01:50 114 H 16 103/26 99 07/01/19 01:40 115 H 16 115/50 99 07/01/19 01:30 112 H 16 101/38 99 07/01/19 01:20 111 H 16 88/45 97 07/01/19 01:10 112 H 14 103/52 97 07/01/19 01:00 126 H 14 94 L 07/01/19 00:53 106 H 18 95 07/01/19 00:42 98.2 F 112 H 28 H 82/69 96 Intake and Output 06/30/19 07/01/19 07/01/19 22:59 06:59 14:59 Intake Total 0243.965 0219.692 Output Total 140 7 Balance 7753.963 2859.692 Intake: IV 1550 1400 Aztreonam 2 gm In Sodium 100 Chloride 0.9% 100 ml @ 100 mls/hr IVPB Q8H [facility] Rx#:[id number] Sodium Chloride 0.9% 1, 450 150 000 ml @ 150 mls/hr IV . Q6H40M [facility] Rx#:[id number] Sodium Chloride 0.9% 1, 1000 1000 000 ml @ 999 mls/hr IV . Q1H1M [facility] Rx#:[id number] Vancomycin 1,500 mg In 250 Sodium Chloride 0.9% 250 ml @ 125 mls/hr IVPB Q24H [facility] Rx#:[id number] Intake, IV Titration 86.467 58.692 Amount Norepinephrine 32 mg In 14.383 27.671 Sodium Chloride 0.9% 218 ml @ 0.05 MCG/KG/MIN 1. 765 mls/hr IV .Q24H [facility] Rx#:[id number] Propofol 1,000 mg In 53.385 31.021 Empty Bag 1 bag @ Titrate IV .Q0M [facility] Rx#: [id number] fentaNYL (PF) 1,000 mcg 18.699 In Sodium Chloride 0.9% 80 ml @ 1 MCG/KG/HR 7.53 mls/hr IV .[id number] [facility] Rx #:[id number] Output: Urine 140 7 Other: Voiding Method Indwelling Catheter Weight 75.296 kg ABP, PAP, CO, CI - Last 8 Hours Arterial Blood Pressure 91/52 Arterial Blood Pressure 97/54 Arterial Blood Pressure 99/55 Arterial Blood Pressure 95/56 Arterial Blood Pressure 92/55 Arterial Blood Pressure 94/53 Arterial Blood Pressure 97/53 Arterial Blood Pressure 93/52 Arterial Blood Pressure 119/58 GENERAL EXAM: Sedated, intubated, 74-year-old frail looking female comfortable in no apparent distress. HEAD: Normocephalic/atraumatic. EYES: Normal reaction of pupils, equal size. Conjunctiva pink, sclera white. NOSE: Clear with pink turbinates. THROAT: No erythema or exudates. NECK: No masses, no JVD, no thyroid enlargement, no adenopathy. CHEST: No chest wall deformity. Symmetrical expansion. LUNGS: Equal air entry with no crackles, wheeze, rhonchi or dullness. CVS: Regular rate and rhythm, normal S1 and S2, no gallops, no murmurs, no rubs ABDOMEN: Soft, nontender. No hepatosplenomegaly, normal bowel sounds, no guarding or rigidity. EXTREMITIES: No clubbing, 1+ lower extremity edema, no cyanosis, 2+ pulses and upper and lower extremities. MUSCULOSKELETAL: Muscle strength and tone normal. SPINE: No scoliosis or deformity SKIN: No rashes CENTRAL NERVOUS SYSTEM: Sedated and intubated. No focal deficits, tone is normal in all 4 extremities. Results - Laboratory Findings CBC and BMP: 07/01/19 04:49 07/01/19 04:49 ABG ABG pH 7.24 (7.35-7.45) L 07/01/19 04:39 ABG pCO2 40 mmHg (35-45) 07/01/19 04:39 ABG pO2 301 mmHg (83-108) H 07/01/19 04:39 ABG O2 Saturation 99.1 % (94-97) H 07/01/19 04:39 PT/INR, D-dimer PT 12.3 sec (9.0-12.0) H 07/01/19 00:50 INR 1.2 (<1.2) H 07/01/19 00:50 Abnormal lab findings: Abnormal Labs 07/01/19 07/01/19 07/01/19 00:50 00:50 00:50 WBC 22.8 H Hgb RDW 16.1 H Neutrophils # 18.8 H Monocytes # 1.3 H PT INR ABG pH ABG pO2 ABG HCO3 ABG Total CO2 ABG O2 Saturation VBG pCO2 34 L VBG HCO3 17 L Sodium 130 L Potassium 5.8 H Carbon Dioxide 19 L BUN 54 H Creatinine 1.44 H POC Glucose (mg/dL) Plasma Lactic Acid Kehinde Calcium 7.5 L Total Bilirubin 2.9 H AST 1799 H ALT 189 H Alkaline Phosphatase 296 H Creatine Kinase 204 H Troponin I Total Protein 4.7 L Albumin 2.3 L Urine Appearance Urine Protein Urine Blood Urine Bilirubin Ur Leukocyte Esterase Urine RBC Urine WBC Urine WBC Clumps Amorphous Sediment Urine Bacteria Hyaline Casts Urine Mucus Urine Yeast (Budding) 07/01/19 07/01/19 07/01/19 00:50 00:50 00:50 WBC Hgb RDW Neutrophils # Monocytes # PT 12.3 H INR 1.2 H ABG pH ABG pO2 ABG HCO3 ABG Total CO2 ABG O2 Saturation VBG pCO2 VBG HCO3 Sodium Potassium Carbon Dioxide BUN Creatinine POC Glucose (mg/dL) Plasma Lactic Acid Kehinde 2.8 H* Calcium Total Bilirubin AST ALT Alkaline Phosphatase Creatine Kinase Troponin I 0.048 H* Total Protein Albumin Urine Appearance Urine Protein Urine Blood Urine Bilirubin Ur Leukocyte Esterase Urine RBC Urine WBC Urine WBC Clumps Amorphous Sediment Urine Bacteria Hyaline Casts Urine Mucus Urine Yeast (Budding) 07/01/19 07/01/19 07/01/19 01:21 03:22 04:39 WBC Hgb RDW Neutrophils # Monocytes # PT INR ABG pH 7.24 L ABG pO2 301 H ABG HCO3 17 L ABG Total CO2 18 L ABG O2 Saturation 99.1 H VBG pCO2 VBG HCO3 Sodium Potassium Carbon Dioxide BUN Creatinine POC Glucose (mg/dL) 114 H Plasma Lactic Acid Kehinde Calcium Total Bilirubin AST ALT Alkaline Phosphatase Creatine Kinase Troponin I Total Protein Albumin Urine Appearance Cloudy H Urine Protein 2+ H Urine Blood Large H Urine Bilirubin 1+ H Ur Leukocyte Esterase Small H Urine RBC >182 H Urine WBC 33 H Urine WBC Clumps Few H Amorphous Sediment Rare H Urine Bacteria Occasional H Hyaline Casts 101 H Urine Mucus Many H Urine Yeast (Budding) Occasional H 07/01/19 07/01/19 07/01/19 04:49 04:49 05:30 WBC 24.5 H Hgb 11.2 L RDW 15.8 H Neutrophils # 19.8 H Monocytes # 1.4 H PT INR ABG pH ABG pO2 ABG HCO3 ABG Total CO2 ABG O2 Saturation VBG pCO2 VBG HCO3 Sodium 131 L Potassium Carbon Dioxide 17 L BUN 50 H Creatinine 1.25 H POC Glucose (mg/dL) Plasma Lactic Acid Kehinde 2.3 H* Calcium 6.5 L Total Bilirubin 2.8 H AST 1491 H ALT 154 H Alkaline Phosphatase 230 H Creatine Kinase Troponin I Total Protein 3.6 L Albumin 1.7 L Urine Appearance Urine Protein Urine Blood Urine Bilirubin Ur Leukocyte Esterase Urine RBC Urine WBC Urine WBC Clumps Amorphous Sediment Urine Bacteria Hyaline Casts Urine Mucus Urine Yeast (Budding) 07/01/19 05:30 WBC Hgb RDW Neutrophils # Monocytes # PT INR ABG pH ABG pO2 ABG HCO3 ABG Total CO2 ABG O2 Saturation VBG pCO2 VBG HCO3 Sodium Potassium Carbon Dioxide BUN Creatinine POC Glucose (mg/dL) Plasma Lactic Acid Kehinde Calcium Total Bilirubin AST ALT Alkaline Phosphatase Creatine Kinase Troponin I 0.046 H* Total Protein Albumin Urine Appearance Urine Protein Urine Blood Urine Bilirubin Ur Leukocyte Esterase Urine RBC Urine WBC Urine WBC Clumps Amorphous Sediment Urine Bacteria Hyaline Casts Urine Mucus Urine Yeast (Budding) - Diagnostic Findings Chest x-ray: report reviewed, image reviewed Assessment and Plan Plan: Assessment: #1. Septic shock likely related to urinary tract infection, the possibility of pneumonia is not completely excluded #2. 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 Acute respiratory failure related to septic shock, and altered mental stat us, acute hypoxemic respiratory failure related to hypoperfusion #4. Recent hospitalization for left lower lobe pneumonia and urinary tract infection, urine culture was positive for E. coli is initially treated with Zithromax and Rocephin, but discharged home on Levaquin although E. coli was shown to be resistant to Levaquin #5. Metastatic melanoma diagnosed in May of 2018, status post resection and sentinel biopsy showing malignant melanoma. Patient was treated with Opdivo however the disease continued to progress, and most recently on 05/08/2019 patient received her first treatment of Tafinlar-Mekinist, after which she developed shortness of breath, weakness, and left lower extremity swelling, and was diagnosed with UTI and sepsis left lower lobe pneumonia and left lower extremity DVT. Most recent PET scan showed metastatic lesions in the lungs, liver, spleen, and lateral adrenal glands #6. Hypertension #7. Hyperlipidemia #8. History of left lower extremity DVT on Eliquis #9. Rheumatoid arthritis #10. Never smoker #11. Previous history of pneumonia Plan: We will continue current antibiotics with cefepime and vancomycin, blood, urine and sputum cultures have been sent and are pending at this time, patient remains hypotensive, remains on vasopressor support, we will give additional liter of 0.9 normal saline bolus, for a total of 5 L of IV fluids, continue maintenance IV fluids at 150 ML per hour, obtain serum cortisol. Start stress doses of hydrocortisone 100 mg every 8 hours, will start heparin infusion for anticoagulation in view of recent history of lower extremity DVT, case patient needs any invasive procedures. We'll nebulized bronchodilators, chest x-ray has been reviewed showing interstitial edema, left lower pneumonia is not excluded. Overall prognosis extremely guarded, patient did not tolerate initiation of treatment with Tafinlar-Mekinist, and did not respond favorably to Opdivo. We'll continue supportive treatment, continue ventilator support, continue hemodynamic support. I performed a history & physical examination of the patient and discussed their management with my nurse practitioner, Serenity Case. I reviewed the nurse practitioner's note and agree with the documented findings and plan of care. Lung sounds are positive for diminished breath sounds. The findings and the impression was discussed with the patient. I attest to the documentation by the nurse practitioner. Time with Patient: Greater than 30
[2019-07-01 09:59] LABS: Basophils # (A) 0.1 k/uL (0-0.2); Basophils % (A) 0 %; Eosinophils % (A) 0 %; HCT 35.7 % (34.0-46.0); HGB 11.5 gm/dL (11.4-16.0); Hypochromasia Moderate; Lymphocytes # (A) 3.1 k/uL (1.0-4.8); Lymphocytes % (A) 13 %; MCH 29.6 pg (25.0-35.0); MCHC 32.1 g/dL (31.0-37.0); MCV 92.2 fL (80.0-100.0); Mean Platelet Volume 7.5; Monocytes % (A) 4 %; Neutrophils % (A) 82 %; Platelet Count 164 k/uL (150-450); RBC 3.88 m/uL (3.80-5.40); RDW 15.9 % (11.5-15.5); WBC 24.4 k/uL (3.8-10.6)
[2019-07-01 13:12] VITALS: BP 100/34
[2019-07-01 13:13] LABS: Glucose,Whole Blood 73 mg/dL (75-99)
[2019-07-01 16:03] LABS: ABG Oxygen Saturation 96.3 % (94-97); ABG PCO2 22 mmHg (35-45); ABG PH 7.23 (7.35-7.45); ABG PO2 102 mmHg (83-108); ABG TCO2 10 mmol/L (19-24); Allen Test Performed? Yes
[2019-07-01 16:07] LABS: ABG HCO3 9 mmol/L (21-25)
--- NOTE | 2019-07-01 16:10 | P.PN ---
Progress Note - Text Progress Note Date: 07/01/19 Advanced Care Planning: Diagnoses: Shock, Stage IV Melanoma Discussion: Person(s) present and participating in discussion: Daughter Summary: Patient admitted with shock with possible PNA,UTI but no definitive evidence on CXR or UA. Has known Melanoma, has been unable to tolerate treatment and has been declining quickly over the last month. Daughter states that Tonya would not want to be kept alive if there was no hope of recovery. We decided that continuing with vasopressors is appropriate to give her a chance to improve. However if her heart were to stop we would no preform CPR. This seems to appropriate reflect the patients wishes. I offered to call the patient's son. However, per the daughter this is not necessary and the family will all be on the same page. A total of 17 minutes of face to face time was spent discussing advanced care planning.
[2019-07-01] MEDS: SODIUM CHLORIDE 0.9% 50 ML with VASOPRESSIN 20 UNIT IVPB SCH ×4 (16:32→20:13)
--- NOTE | 2019-07-01 16:52 | P.PN ---
Subjective Progress Note Date: 07/01/19 (delayed charting seen at 0900) Principal diagnosis: Letheragy Patient is a 74-year-old female with a past medical history of metastatic melanoma with metastases to the lungs, liver, and adrenal gland (following with Dr. Morocho for 18 month), recent left lower extremity DVT, hypertension, and dyslipidemia who presented to the emergency department secondary to lethargy and confusion. Patient had been discharged from [facility] on 06/27 after a five-day hospitalization for pneumonia and urinary tract infection. Patient was discharged home on Levaquin. Melanoma History: The patient was seen for lesion in her right upper back in May 2018 which was subsequently removed and showed malignant melanoma. At that point in time she was referred to [facility] and had a wide excision with sentinel node biopsy on 07/10/18. Initial diagnosis was stage IIIc, PT4 N 3b. She was recommended for adjuvant chemotherapy and received Nivolumab. She desired continue treatment closer to home and was subsequently seen by Dr. Morocho. Repeat imaging showed progression of disease and she was seen back at [facility]. They recommended to proceed with Opdivo and she received 7 cycles. PET scan performed on 03/21/19 showed increasing size of her right upper back mass as well as bilateral lung nodules some new and some increased in size, spleen lesion, and possible liver uptake. Case was again discussed with [facility] and she received 2 more cycles off Depo. Repeat CT on 05/20/19 shows progression of multiple bilateral lung nodules, 20 2 subcutaneous nodules, and metastatic lesions in the liver bilateral adrenal glands, and spleen. She received 1 course of Tafinlar-Mekinist. repeat CT on 06/24 confirmed new splenomegaly sincee PET/CT, liver lesion, adrenal mass vs hemorrhage, and lung lesions. She presented to outside facility and was on the profoundly hypotensive. She was given IV fluids and Lasix for treatment of pulmonary edema. When she arrived to the ER here she was very lethargic, hypotensive, and tachycardic. She was subsequently intubated for airway protection. She was found to have a white blood cell count 24,000, hyponatremia, hyperkalemia, HPI, and a chest x- ray showing pulmonary interstitial edema with infiltrate. She was also found to have an elevated lactic acid at 2.8 and urinalysis demonstrated large amounts of blood but no definitive infection. She was started on broad-spectrum anti biotics in the form of vancomycin and cefepime. She received a total of 4 L of IV fluids and ultimately required norepinephrine to support her blood pressure. She was placed on propofol. Patient seen and examined at bedside. She is sedated on vent and not following commands. No family present. Objective - Vital Signs Vital signs: Vital Signs Temp 99.5 F 07/01/19 16:00 Pulse 109 H 07/01/19 16:00 Resp 22 07/01/19 16:00 BP 100/34 07/01/19 13:30 Pulse Ox 94 L 07/01/19 16:00 Intake & Output 06/30/19 07/01/19 07/01/19 18:59 06:59 18:59 Intake Total 8319.990 1519.493 Output Total 140 132 Balance 9092.350 4687.493 Weight 75.296 kg 84.9 kg Intake: IV 1550 5750 Aztreonam 2 gm In Sodium 100 Chloride 0.9% 100 ml @ 100 mls/hr IVPB Q8H [facility] Rx#:[id number] Sodium Chloride 0.9% 1, 450 1500 000 ml @ 150 mls/hr IV . Q6H40M [facility] Rx#:[id number] Sodium Chloride 0.9% 1, 1000 4000 000 ml @ 999 mls/hr IV . Q1H1M ONE Rx#:[id number] Vancomycin 1,500 mg In 250 Sodium Chloride 0.9% 250 ml @ 125 mls/hr IVPB Q24H [facility] Rx#:[id number] Intake, IV Titration 86.467 271.493 Amount Cefepime 2 gm In Sodium 100 Chloride 0.9% 100 ml @ 200 mls/hr IVPB Q12H [facility] Rx#:[id number] Norepinephrine 32 mg In 14.383 109.375 Sodium Chloride 0.9% 218 ml @ 0.05 MCG/KG/MIN 1. 765 mls/hr IV .Q24H [facility] Rx#:[id number] Propofol 1,000 mg In 53.385 62.118 Empty Bag 1 bag @ Titrate IV .Q0M [facility] Rx#: [id number] fentaNYL (PF) 1,000 mcg 18.699 In Sodium Chloride 0.9% 80 ml @ 1 MCG/KG/HR 7.53 mls/hr IV .[id number] [facility] Rx #:[id number] Output: Urine 140 132 Other: Voiding Method Indwelling Catheter Indwelling Catheter ABP, PAP, CO, CI - Last Documented Arterial Blood Pressure 80/53 - Exam General: ill appearing, moderate distress, appears older than stated age Derm: warm, dry Head: atraumatic, normocephalic, symmetric Eyes: PERRL, no lid lesion, anicteric sclera Mouth: no lip lesion, mucus membranes dry Cardiovascular: S1S2 reg, no murmur, positive posterior tibial pulse bilateral, Lungs: Ccourse bs bilateral , no accessory muscle use, on vent Abdominal: soft, nontender to palpation, no guarding, no appreciable organome tamica Ext: + gross muscle atrophy, 1+ edema, no contractures Neuro: breathing over vent, + cough Psych:Sedated on vent - Labs CBC & Chem 7: 07/01/19 09:01 07/01/19 04:49 Labs: Abnormal Lab Results - Last 24 Hours (Table) 07/01/19 07/01/19 07/01/19 Range/Units 00:50 00:50 00:50 WBC 22.8 H (3.8-10.6) k/uL Hgb (11.4-16.0) gm/dL RDW 16.1 H (11.5-15.5) % Neutrophils # 18.8 H (1.3-7.7) k/uL Monocytes # 1.3 H (0-1.0) k/uL PT (9.0-12.0) sec INR (<1.2) ABG pH (7.35-7.45) ABG pO2 (83-108) mmHg ABG HCO3 (21-25) mmol/L ABG Total CO2 (19-24) mmol/L ABG O2 Saturation (94-97) % VBG pCO2 34 L (37-51) mmHg VBG HCO3 17 L (24-28) mmol/L Sodium 130 L (137-145) mmol/L Potassium 5.8 H (3.5-5.1) mmol/L Carbon Dioxide 19 L (22-30) mmol/L BUN 54 H (7-17) mg/dL Creatinine 1.44 H (0.52-1.04) mg/dL POC Glucose (mg/dL) (75-99) mg/dL Plasma Lactic Acid Kehinde (0.7-2.0) mmol/L Calcium 7.5 L (8.4-10.2) mg/dL Total Bilirubin 2.9 H (0.2-1.3) mg/dL AST 1799 H (14-36) U/L ALT 189 H (9-52) U/L Alkaline Phosphatase 296 H (38-126) U/L Creatine Kinase 204 H (30-135) U/L Troponin I (0.000-0.034) ng/mL Total Protein 4.7 L (6.3-8.2) g/dL Albumin 2.3 L (3.5-5.0) g/dL Urine Appearance (Clear) Urine Protein (Negative) Urine Blood (Negative) Urine Bilirubin (Negative) Ur Leukocyte Esterase (Negative) Urine RBC (0-5) /hpf Urine WBC (0-5) /hpf Urine WBC Clumps (None) /hpf Amorphous Sediment (None) /hpf Urine Bacteria (None) /hpf Hyaline Casts (0-2) /lpf Urine Mucus (None) /hpf Urine Yeast (Budding) (None) /hpf 07/01/19 07/01/19 07/01/19 Range/Units 00:50 00:50 00:50 WBC (3.8-10.6) k/uL Hgb (11.4-16.0) gm/dL RDW (11.5-15.5) % Neutrophils # (1.3-7.7) k/uL Monocytes # (0-1.0) k/uL PT 12.3 H (9.0-12.0) sec INR 1.2 H (<1.2) ABG pH (7.35-7.45) ABG pO2 (83-108) mmHg ABG HCO3 (21-25) mmol/L ABG Total CO2 (19-24) mmol/L ABG O2 Saturation (94-97) % VBG pCO2 (37-51) mmHg VBG HCO3 (24-28) mmol/L Sodium (137-145) mmol/L Potassium (3.5-5.1) mmol/L Carbon Dioxide (22-30) mmol/L BUN (7-17) mg/dL Creatinine (0.52-1.04) mg/dL POC Glucose (mg/dL) (75-99) mg/dL Plasma Lactic Acid Kehinde 2.8 H* (0.7-2.0) mmol/L Calcium (8.4-10.2) mg/dL Total Bilirubin (0.2-1.3) mg/dL AST (14-36) U/L ALT (9-52) U/L Alkaline Phosphatase (38-126) U/L Creatine Kinase (30-135) U/L Troponin I 0.048 H* (0.000-0.034) ng/mL Total Protein (6.3-8.2) g/dL Albumin (3.5-5.0) g/dL Urine Appearance (Clear) Urine Protein (Negative) Urine Blood (Negative) Urine Bilirubin (Negative) Ur Leukocyte Esterase (Negative) Urine RBC (0-5) /hpf Urine WBC (0-5) /hpf Urine WBC Clumps (None) /hpf Amorphous Sediment (None) /hpf Urine Bacteria (None) /hpf Hyaline Casts (0-2) /lpf Urine Mucus (None) /hpf Urine Yeast (Budding) (None) /hpf 07/01/19 07/01/19 07/01/19 Range/Units 01:21 03:22 04:39 WBC (3.8-10.6) k/uL Hgb (11.4-16.0) gm/dL RDW (11.5-15.5) % Neutrophils # (1.3-7.7) k/uL Monocytes # (0-1.0) k/uL PT (9.0-12.0) sec INR (<1.2) ABG pH 7.24 L (7.35-7.45) ABG pO2 301 H (83-108) mmHg ABG HCO3 17 L (21-25) mmol/L ABG Total CO2 18 L (19-24) mmol/L ABG O2 Saturation 99.1 H (94-97) % VBG pCO2 (37-51) mmHg VBG HCO3 (24-28) mmol/L Sodium (137-145) mmol/L Potassium (3.5-5.1) mmol/L Carbon Dioxide (22-30) mmol/L BUN (7-17) mg/dL Creatinine (0.52-1.04) mg/dL POC Glucose (mg/dL) 114 H (75-99) mg/dL Plasma Lactic Acid Kehinde (0.7-2.0) mmol/L Calcium (8.4-10.2) mg/dL Total Bilirubin (0.2-1.3) mg/dL AST (14-36) U/L ALT (9-52) U/L Alkaline Phosphatase (38-126) U/L Creatine Kinase (30-135) U/L Troponin I (0.000-0.034) ng/mL Total Protein (6.3-8.2) g/dL Albumin (3.5-5.0) g/dL Urine Appearance Cloudy H (Clear) Urine Protein 2+ H (Negative) Urine Blood Large H (Negative) Urine Bilirubin 1+ H (Negative) Ur Leukocyte Esterase Small H (Negative) Urine RBC >182 H (0-5) /hpf Urine WBC 33 H (0-5) /hpf Urine WBC Clumps Few H (None) /hpf Amorphous Sediment Rare H (None) /hpf Urine Bacteria Occasional H (None) /hpf Hyaline Casts 101 H (0-2) /lpf Urine Mucus Many H (None) /hpf Urine Yeast (Budding) Occasional H (None) /hpf 07/01/19 07/01/19 07/01/19 Range/Units 04:49 04:49 05:30 WBC 24.5 H (3.8-10.6) k/uL Hgb 11.2 L (11.4-16.0) gm/dL RDW 15.8 H (11.5-15.5) % Neutrophils # 19.8 H (1.3-7.7) k/uL Monocytes # 1.4 H (0-1.0) k/uL PT (9.0-12.0) sec INR (<1.2) ABG pH (7.35-7.45) ABG pO2 (83-108) mmHg ABG HCO3 (21-25) mmol/L ABG Total CO2 (19-24) mmol/L ABG O2 Saturation (94-97) % VBG pCO2 (37-51) mmHg VBG HCO3 (24-28) mmol/L Sodium 131 L (137-145) mmol/L Potassium (3.5-5.1) mmol/L Carbon Dioxide 17 L (22-30) mmol/L BUN 50 H (7-17) mg/dL Creatinine 1.25 H (0.52-1.04) mg/dL POC Glucose (mg/dL) (75-99) mg/dL Plasma Lactic Acid Kehinde 2.3 H* (0.7-2.0) mmol/L Calcium 6.5 L (8.4-10.2) mg/dL Total Bilirubin 2.8 H (0.2-1.3) mg/dL AST 1491 H (14-36) U/L ALT 154 H (9-52) U/L Alkaline Phosphatase 230 H (38-126) U/L Creatine Kinase (30-135) U/L Troponin I (0.000-0.034) ng/mL Total Protein 3.6 L (6.3-8.2) g/dL Albumin 1.7 L (3.5-5.0) g/dL Urine Appearance (Clear) Urine Protein (Negative) Urine Blood (Negative) Urine Bilirubin (Negative) Ur Leukocyte Esterase (Negative) Urine RBC (0-5) /hpf Urine WBC (0-5) /hpf Urine WBC Clumps (None) /hpf Amorphous Sediment (None) /hpf Urine Bacteria (None) /hpf Hyaline Casts (0-2) /lpf Urine Mucus (None) /hpf Urine Yeast (Budding) (None) /hpf 07/01/19 07/01/19 07/01/19 Range/Units 05:30 09:01 09:01 WBC 24.4 H (3.8-10.6) k/uL Hgb (11.4-16.0) gm/dL RDW 15.9 H (11.5-15.5) % Neutrophils # 20.0 H (1.3-7.7) k/uL Monocytes # (0-1.0) k/uL PT 12.8 H (9.0-12.0) sec INR 1.2 H (<1.2) ABG pH (7.35-7.45) ABG pO2 (83-108) mmHg ABG HCO3 (21-25) mmol/L ABG Total CO2 (19-24) mmol/L ABG O2 Saturation (94-97) % VBG pCO2 (37-51) mmHg VBG HCO3 (24-28) mmol/L Sodium (137-145) mmol/L Potassium (3.5-5.1) mmol/L Carbon Dioxide (22-30) mmol/L BUN (7-17) mg/dL Creatinine (0.52-1.04) mg/dL POC Glucose (mg/dL) (75-99) mg/dL Plasma Lactic Acid Kehinde (0.7-2.0) mmol/L Calcium (8.4-10.2) mg/dL Total Bilirubin (0.2-1.3) mg/dL AST (14-36) U/L ALT (9-52) U/L Alkaline Phosphatase (38-126) U/L Creatine Kinase (30-135) U/L Troponin I 0.046 H* (0.000-0.034) ng/mL Total Protein (6.3-8.2) g/dL Albumin (3.5-5.0) g/dL Urine Appearance (Clear) Urine Protein (Negative) Urine Blood (Negative) Urine Bilirubin (Negative) Ur Leukocyte Esterase (Negative) Urine RBC (0-5) /hpf Urine WBC (0-5) /hpf Urine WBC Clumps (None) /hpf Amorphous Sediment (None) /hpf Urine Bacteria (None) /hpf Hyaline Casts (0-2) /lpf Urine Mucus (None) /hpf Urine Yeast (Budding) (None) /hpf 07/01/19 07/01/19 Range/Units 10:16 13:01 WBC (3.8-10.6) k/uL Hgb (11.4-16.0) gm/dL RDW (11.5-15.5) % Neutrophils # (1.3-7.7) k/uL Monocytes # (0-1.0) k/uL PT (9.0-12.0) sec INR (<1.2) ABG pH (7.35-7.45) ABG pO2 (83-108) mmHg ABG HCO3 (21-25) mmol/L ABG Total CO2 (19-24) mmol/L ABG O2 Saturation (94-97) % VBG pCO2 (37-51) mmHg VBG HCO3 (24-28) mmol/L Sodium (137-145) mmol/L Potassium (3.5-5.1) mmol/L Carbon Dioxide (22-30) mmol/L BUN (7-17) mg/dL Creatinine (0.52-1.04) mg/dL POC Glucose (mg/dL) 73 L (75-99) mg/dL Plasma Lactic Acid Kehinde 2.1 H* (0.7-2.0) mmol/L Calcium (8.4-10.2) mg/dL Total Bilirubin (0.2-1.3) mg/dL AST (14-36) U/L ALT (9-52) U/L Alkaline Phosphatase (38-126) U/L Creatine Kinase (30-135) U/L Troponin I (0.000-0.034) ng/mL Total Protein (6.3-8.2) g/dL Albumin (3.5-5.0) g/dL Urine Appearance (Clear) Urine Protein (Negative) Urine Blood (Negative) Urine Bilirubin (Negative) Ur Leukocyte Esterase (Negative) Urine RBC (0-5) /hpf Urine WBC (0-5) /hpf Urine WBC Clumps (None) /hpf Amorphous Sediment (None) /hpf Urine Bacteria (None) /hpf Hyaline Casts (0-2) /lpf Urine Mucus (None) /hpf Urine Yeast (Budding) (None) /hpf Microbiology - Last 24 Hours (Table) 07/01/19 01:21 Urine Culture - Preliminary Urine,Voided Assessment and Plan Assessment: Septic shock, possible UTI, PNA less likely - Vanco, cefepime - IVF - Levophed - Urine culture, sputum culture, blood cultures pending BILL likely due to ATN and hypotension - IVF fluids - Avoid additional nephrotoxic agents - off mobic - repeat BMP in AM Type II LA - due to septic shock - Troponin flat not need to follow - treatment of sepsis Acute hepatitis - suspect component of shock liver but may also be disease progression from known hepatic lesions - follow liver enzymes Possible relative adrenal insufficency due to prolonged illness - tried 2 stress doses of steroids without improvement in BP Metastatic Melanoma stage IV - Consult oncology - Significant disease progression - has not been able to tolerate treatment Lactic acidosis, metabolic acidosis - likely due to hypoprefusion and decreased clearance due to liver disease - follow lactic acid Severe protein calorie malnutrition - on vent - tube feeding - dietitian consultation Acute respiratory failure - vent mgt per Critical care Recent left lower extremity DVT - was on eliquis as outpatient - transitioned to heparin as inpatient Toxic metabolic encephalopathy - treatment of illness as listed above Hyponatremia - likely due to poor oral intake - IVF - Follow BMP in AM Hyperkalemia, resolved Chronic: HTN HLD Rheumatoid arthritis
--- NOTE | 2019-07-01 18:31 | P.CONS ---
History of Present Illness - Reason for Consult Consult date: 07/01/19 metastatic melanoma Requesting physician: Nasra Krishnan - Chief Complaint lethargy, weakness - History of Present Illness Please refer to consultation documented (7 days ago) for full history up to that point including malignancy. Patient was just discharged late last week, she had not resumed any therapy for her metastatic melanoma, pending receipt of the dosed reduced drug and follow-up in the office to reevaluate patient's trending liver enzymes. Patient's daughter states that starting Saturday patient started to decline, not eating, drinking, unable to sit up independently, was not moving about, this progressed to include confusion and lethargy which is what brought her to the hospital. On admit patient was critical, she ended up being intubated, sedated, she is now on vasopressors, nearly maxed out. Review of Systems ROS unobtainable: due to endotracheal tube Past Medical History Past Medical History: Cancer, Deep Vein Thrombosis (DVT), Hyperlipidemia, Hypertension, Pneumonia, Rheumatoid Arthritis (RA) Additional Past Medical History / Comment(s): metatastic melanoma dx 2018 mets spleen, kidney, back, lung , LLE DVT History of Any Multi-Drug Resistant Organisms: None Reported Past Surgical History: Bladder Surgery, Hernia Repair, Hysterectomy, Orthopedic Surgery Additional Past Surgical History / Comment(s): tumor removal right breast, 3 knee replacements, T& A, tropean eye surgery Past Anesthesia/Blood Transfusion Reactions: No Reported Reaction Past Psychological History: No Psychological Hx Reported Smoking Status: Unknown if ever smoked Past Alcohol Use History: None Reported Past Drug Use History: None Reported - Past Family History Father Family Medical History: Cancer Additional Family Medical History / Comment(s): lung cancer Mother Family Medical History: Cancer Additional Family Medical History / Comment(s): intestinal cancer Sister(s) Family Medical History: Cancer Additional Family Medical History / Comment(s): breast cancer Family Additional Family Medical History / Comment(s): Denies history of cancer Medications and Allergies Home Medications Medication Instructions Recorded Confirmed Type Meloxicam [Mobic] 7.5 mg PO BID 06/08/19 07/01/19 History Nortriptyline [Pamelor] 10 mg PO HS 06/08/19 07/01/19 History Nystatin-Triamcinolone Oint 1 applic TOPICAL BID PRN 06/08/19 07/01/19 History [Mycolog 100,000-0.1 Unit/gm-% Oint] Omeprazole 20 mg PO DAILY 06/08/19 07/01/19 History Prochlorperazine [Compazine] 10 mg PO Q6H PRN 06/08/19 07/01/19 History Sertraline [Zoloft] 100 mg PO BID 06/08/19 07/01/19 History Tafinlar 75mg Capsule 150 mg PO Q12H 06/08/19 07/01/19 History Trametinib Dimethyl Sulfoxide 2 mg PO DAILY 06/08/19 07/01/19 History [Mekinist] amLODIPine BESYLATE [Norvasc] 2.5 mg PO DAILY 06/08/19 07/01/19 History Sennosides [Senokot] 8.6 mg PO BID 30 Days #60 tab 06/11/19 07/01/19 Rx Apixaban [Eliquis] 5 mg PO BID 06/23/19 07/01/19 History HYDROcodone/APAP 5-325MG [[place] 1 tab PO Q4HR PRN 06/23/19 07/01/19 History 5-325] Ipratropium-Albuterol Nebulize 3 ml INHALATION RT-QID #90 06/27/19 07/01/19 Rx [Duoneb 0.5 mg-3 mg/3 ml Soln] ampul.neb Levofloxacin [Levaquin] 750 mg PO DAILY 4 Days #4 tab 06/27/19 07/01/19 Rx Allergies Allergy/AdvReac Type Severity Reaction Status Date / Time ciprofloxacin [From Cipro] Allergy Hallucinati Verified 07/01/19 07:44 ons Penicillins Allergy Unknown Verified 07/01/19 07:44 Childhood Physical Exam Vitals: Vital Signs Temp Pulse Resp BP Pulse Ox 07/01/19 18:00 108 H 26 H 95 07/01/19 17:45 109 H 26 H 94 L 07/01/19 17:30 107 H 26 H 97 07/01/19 17:15 112 H 26 H 99 07/01/19 17:00 112 H 26 H 94 L 07/01/19 16:45 113 H 26 H 95 07/01/19 16:30 112 H 26 H 94 L 07/01/19 16:15 112 H 26 H 93 L 07/01/19 16:00 99.5 F 109 H 22 94 L 07/01/19 15:30 110 H 22 92 L 07/01/19 15:00 108 H 22 94 L 07/01/19 14:30 106 H 21 96 07/01/19 14:00 105 H 18 88 L 07/01/19 13:30 109 H 19 100/34 96 07/01/19 13:01 106 H 21 95 07/01/19 12:30 104 H 21 100/34 96 07/01/19 12:00 99.5 F 105 H 21 105/52 100 07/01/19 11:30 105 H 24 07/01/19 11:00 103 H 26 H 105/52 07/01/19 10:30 106 H 21 105/52 07/01/19 10:00 101 H 23 116/42 100 07/01/19 09:30 97 19 07/01/19 09:00 100 27 H 07/01/19 08:30 99 26 H 07/01/19 08:00 98.8 F 100 26 H 110/28 97 07/01/19 07:30 97 26 H 110/28 97 07/01/19 07:00 96 26 H 96 07/01/19 06:30 96 26 H 92 L 07/01/19 06:00 100 22 94 L 07/01/19 05:30 101 H 22 95 07/01/19 05:00 101 H 21 96 07/01/19 04:30 98.6 F 107 H 16 98 07/01/19 04:00 113 H 20 92/63 100 07/01/19 03:30 113 H 22 85/56 94 L 07/01/19 03:00 120 H 21 99/58 98 07/01/19 02:30 112 H 16 102/56 97 07/01/19 02:00 113 H 16 98/60 98 07/01/19 01:50 114 H 16 103/26 99 07/01/19 01:40 115 H 16 115/50 99 07/01/19 01:30 112 H 16 101/38 99 07/01/19 01:20 111 H 16 88/45 97 07/01/19 01:10 112 H 14 103/52 97 07/01/19 01:00 126 H 14 94 L 07/01/19 00:53 106 H 18 95 07/01/19 00:42 98.2 F 112 H 28 H 82/69 96 Intake and Output 07/01/19 07/01/19 07/01/19 06:59 14:59 22:59 Intake Total 7022.525 5748.884 1930.086 Output Total 140 117 15 Balance 4528.987 3070.884 1915.086 Intake: IV 1550 4450 1800 Aztreonam 2 gm In Sodium 100 Chloride 0.9% 100 ml @ 100 mls/hr IVPB Q8H COUNTS INCLUDE 234 BEDS AT THE [facility] Rx#:[id number] Sodium Chloride 0.9% 1, 450 1200 800 000 ml @ 150 mls/hr IV . Q6H40M COUNTS INCLUDE 234 BEDS AT THE [facility] Rx#:[id number] Sodium Chloride 0.9% 1, 1000 3000 1000 000 ml @ 999 mls/hr IV . Q1H1M ONE Rx#:[id number] Vancomycin 1,500 mg In 250 Sodium Chloride 0.9% 250 ml @ 125 mls/hr IVPB Q24H COUNTS INCLUDE 234 BEDS AT THE [facility] Rx#:[id number] Intake, IV Titration 86.467 280.884 130.086 Amount Cefepime 2 gm In Sodium 100 Chloride 0.9% 100 ml @ 200 mls/hr IVPB Q12H COUNTS INCLUDE 234 BEDS AT THE [facility] Rx#:[id number] Heparin Sod,Pork in 0.45% 79.366 NaCl 25,000 unit In 0.45 % NaCl 1 250ml.bag @ 12 UNITS/KG/HR 9.036 mls/hr IV .Q24H COUNTS INCLUDE 234 BEDS AT THE [facility] Rx#: [id number] Norepinephrine 32 mg In 14.383 73.656 50.720 Sodium Chloride 0.9% 218 ml @ 0.05 MCG/KG/MIN 1. 765 mls/hr IV .Q24H COUNTS INCLUDE 234 BEDS AT THE [facility] Rx#:[id number] Propofol 1,000 mg In 53.385 107.228 Empty Bag 1 bag @ Titrate IV .Q0M COUNTS INCLUDE 234 BEDS AT THE [facility] Rx#: [id number] fentaNYL (PF) 1,000 mcg 18.699 In Sodium Chloride 0.9% 80 ml @ 1 MCG/KG/HR 7.53 mls/hr IV .[id number] COUNTS INCLUDE 234 BEDS AT THE [facility] Rx #:[id number] Output: Urine 140 117 15 Other: Voiding Method Indwelling Catheter Indwelling Catheter Indwelling Catheter Weight 75.296 kg 84.9 kg ABP, PAP, CO, CI - Last 8 Hours Arterial Blood Pressure 84/57 Arterial Blood Pressure 97/60 Arterial Blood Pressure 108/63 Arterial Blood Pressure 106/64 Arterial Blood Pressure 95/95 Arterial Blood Pressure 99/63 Arterial Blood Pressure 78/54 Arterial Blood Pressure 73/51 Arterial Blood Pressure 80/53 Arterial Blood Pressure 78/51 Arterial Blood Pressure 79/50 Arterial Blood Pressure 96/54 Arterial Blood Pressure 90/53 Arterial Blood Pressure 91/55 Arterial Blood Pressure 81/51 Arterial Blood Pressure 81/50 Arterial Blood Pressure 87/54 Arterial Blood Pressure 88/53 Arterial Blood Pressure 94/55 Arterial Blood Pressure 97/54 Well-developed, generalized anasarca, ventilated and sedated, no distress as noted, extremities are cool to the touch, low blood pressure and tachycardia on the monitor Results CBC & Chem 7: 07/01/19 09:01 07/01/19 04:49 Labs: Abnormal Lab Results - Last 24 Hours (Table) 07/01/19 07/01/19 07/01/19 Range/Units 00:50 00:50 00:50 WBC 22.8 H (3.8-10.6) k/uL Hgb (11.4-16.0) gm/dL RDW 16.1 H (11.5-15.5) % Neutrophils # 18.8 H (1.3-7.7) k/uL Monocytes # 1.3 H (0-1.0) k/uL PT (9.0-12.0) sec INR (<1.2) ABG pH (7.35-7.45) ABG pCO2 (35-45) mmHg ABG pO2 (83-108) mmHg ABG HCO3 (21-25) mmol/L ABG Total CO2 (19-24) mmol/L ABG O2 Saturation (94-97) % VBG pCO2 34 L (37-51) mmHg VBG HCO3 17 L (24-28) mmol/L Sodium 130 L (137-145) mmol/L Potassium 5.8 H (3.5-5.1) mmol/L Carbon Dioxide 19 L (22-30) mmol/L BUN 54 H (7-17) mg/dL Creatinine 1.44 H (0.52-1.04) mg/dL POC Glucose (mg/dL) (75-99) mg/dL Plasma Lactic Acid Kehinde (0.7-2.0) mmol/L Calcium 7.5 L (8.4-10.2) mg/dL Total Bilirubin 2.9 H (0.2-1.3) mg/dL AST 1799 H (14-36) U/L ALT 189 H (9-52) U/L Alkaline Phosphatase 296 H (38-126) U/L Creatine Kinase 204 H (30-135) U/L Troponin I (0.000-0.034) ng/mL Total Protein 4.7 L (6.3-8.2) g/dL Albumin 2.3 L (3.5-5.0) g/dL Urine Appearance (Clear) Urine Protein (Negative) Urine Blood (Negative) Urine Bilirubin (Negative) Ur Leukocyte Esterase (Negative) Urine RBC (0-5) /hpf Urine WBC (0-5) /hpf Urine WBC Clumps (None) /hpf Amorphous Sediment (None) /hpf Urine Bacteria (None) /hpf Hyaline Casts (0-2) /lpf Urine Mucus (None) /hpf Urine Yeast (Budding) (None) /hpf 07/01/19 07/01/19 07/01/19 Range/Units 00:50 00:50 00:50 WBC (3.8-10.6) k/uL Hgb (11.4-16.0) gm/dL RDW (11.5-15.5) % Neutrophils # (1.3-7.7) k/uL Monocytes # (0-1.0) k/uL PT 12.3 H (9.0-12.0) sec INR 1.2 H (<1.2) ABG pH (7.35-7.45) ABG pCO2 (35-45) mmHg ABG pO2 (83-108) mmHg ABG HCO3 (21-25) mmol/L ABG Total CO2 (19-24) mmol/L ABG O2 Saturation (94-97) % VBG pCO2 (37-51) mmHg VBG HCO3 (24-28) mmol/L Sodium (137-145) mmol/L Potassium (3.5-5.1) mmol/L Carbon Dioxide (22-30) mmol/L BUN (7-17) mg/dL Creatinine (0.52-1.04) mg/dL POC Glucose (mg/dL) (75-99) mg/dL Plasma Lactic Acid Kehind[place] 2.8 H* (0.7-2.0) mmol/L Calcium (8.4-10.2) mg/dL Total Bilirubin (0.2-1.3) mg/dL AST (14-36) U/L ALT (9-52) U/L Alkaline Phosphatase (38-126) U/L Creatine Kinase (30-135) U/L Troponin I 0.048 H* (0.000-0.034) ng/mL Total Protein (6.3-8.2) g/dL Albumin (3.5-5.0) g/dL Urine Appearance (Clear) Urine Protein (Negative) Urine Blood (Negative) Urine Bilirubin (Negative) Ur Leukocyte Esterase (Negative) Urine RBC (0-5) /hpf Urine WBC (0-5) /hpf Urine WBC Clumps (None) /hpf Amorphous Sediment (None) /hpf Urine Bacteria (None) /hpf Hyaline Casts (0-2) /lpf Urine Mucus (None) /hpf Urine Yeast (Budding) (None) /hpf 07/01/19 07/01/19 07/01/19 Range/Units 01:21 03:22 04:39 WBC (3.8-10.6) k/uL Hgb (11.4-16.0) gm/dL RDW (11.5-15.5) % Neutrophils # (1.3-7.7) k/uL Monocytes # (0-1.0) k/uL PT (9.0-12.0) sec INR (<1.2) ABG pH 7.24 L (7.35-7.45) ABG pCO2 (35-45) mmHg ABG pO2 301 H (83-108) mmHg ABG HCO3 17 L (21-25) mmol/L ABG Total CO2 18 L (19-24) mmol/L ABG O2 Saturation 99.1 H (94-97) % VBG pCO2 (37-51) mmHg VBG HCO3 (24-28) mmol/L Sodium (137-145) mmol/L Potassium (3.5-5.1) mmol/L Carbon Dioxide (22-30) mmol/L BUN (7-17) mg/dL Creatinine (0.52-1.04) mg/dL POC Glucose (mg/dL) 114 H (75-99) mg/dL Plasma Lactic Acid Kehind[place] (0.7-2.0) mmol/L Calcium (8.4-10.2) mg/dL Total Bilirubin (0.2-1.3) mg/dL AST (14-36) U/L ALT (9-52) U/L Alkaline Phosphatase (38-126) U/L Creatine Kinase (30-135) U/L Troponin I (0.000-0.034) ng/mL Total Protein (6.3-8.2) g/dL Albumin (3.5-5.0) g/dL Urine Appearance Cloudy H (Clear) Urine Protein 2+ H (Negative) Urine Blood Large H (Negative) Urine Bilirubin 1+ H (Negative) Ur Leukocyte Esterase Small H (Negative) Urine RBC >182 H (0-5) /hpf Urine WBC 33 H (0-5) /hpf Urine WBC Clumps Few H (None) /hpf Amorphous Sediment Rare H (None) /hpf Urine Bacteria Occasional H (None) /hpf Hyaline Casts 101 H (0-2) /lpf Urine Mucus Many H (None) /hpf Urine Yeast (Budding) Occasional H (None) /hpf 07/01/19 07/01/19 07/01/19 Range/Units 04:49 04:49 05:30 WBC 24.5 H (3.8-10.6) k/uL Hgb 11.2 L (11.4-16.0) gm/dL RDW 15.8 H (11.5-15.5) % Neutrophils # 19.8 H (1.3-7.7) k/uL Monocytes # 1.4 H (0-1.0) k/uL PT (9.0-12.0) sec INR (<1.2) ABG pH (7.35-7.45) ABG pCO2 (35-45) mmHg ABG pO2 (83-108) mmHg ABG HCO3 (21-25) mmol/L ABG Total CO2 (19-24) mmol/L ABG O2 Saturation (94-97) % VBG pCO2 (37-51) mmHg VBG HCO3 (24-28) mmol/L Sodium 131 L (137-145) mmol/L Potassium (3.5-5.1) mmol/L Carbon Dioxide 17 L (22-30) mmol/L BUN 50 H (7-17) mg/dL Creatinine 1.25 H (0.52-1.04) mg/dL POC Glucose (mg/dL) (75-99) mg/dL Plasma Lactic Acid Ke[place] 2.3 H* (0.7-2.0) mmol/L Calcium 6.5 L (8.4-10.2) mg/dL Total Bilirubin 2.8 H (0.2-1.3) mg/dL AST 1491 H (14-36) U/L ALT 154 H (9-52) U/L Alkaline Phosphatase 230 H (38-126) U/L Creatine Kinase (30-135) U/L Troponin I (0.000-0.034) ng/mL Total Protein 3.6 L (6.3-8.2) g/dL Albumin 1.7 L (3.5-5.0) g/dL Urine Appearance (Clear) Urine Protein (Negative) Urine Blood (Negative) Urine Bilirubin (Negative) Ur Leukocyte Esterase (Negative) Urine RBC (0-5) /hpf Urine WBC (0-5) /hpf Urine WBC Clumps (None) /hpf Amorphous Sediment (None) /hpf Urine Bacteria (None) /hpf Hyaline Casts (0-2) /lpf Urine Mucus (None) /hpf Urine Yeast (Budding) (None) /hpf 07/01/19 07/01/19 07/01/19 Range/Units 05:30 09:01 09:01 WBC 24.4 H (3.8-10.6) k/uL Hgb (11.4-16.0) gm/dL RDW 15.9 H (11.5-15.5) % Neutrophils # 20.0 H (1.3-7.7) k/uL Monocytes # (0-1.0) k/uL PT 12.8 H (9.0-12.0) sec INR 1.2 H (<1.2) ABG pH (7.35-7.45) ABG pCO2 (35-45) mmHg ABG pO2 (83-108) mmHg ABG HCO3 (21-25) mmol/L ABG Total CO2 (19-24) mmol/L ABG O2 Saturation (94-97) % VBG pCO2 (37-51) mmHg VBG HCO3 (24-28) mmol/L Sodium (137-145) mmol/L Potassium (3.5-5.1) mmol/L Carbon Dioxide (22-30) mmol/L BUN (7-17) mg/dL Creatinine (0.52-1.04) mg/dL POC Glucose (mg/dL) (75-99) mg/dL Plasma Lactic Acid [place] (0.7-2.0) mmol/L Calcium (8.4-10.2) mg/dL Total Bilirubin (0.2-1.3) mg/dL AST (14-36) U/L ALT (9-52) U/L Alkaline Phosphatase (38-126) U/L Creatine Kinase (30-135) U/L Troponin I 0.046 H* (0.000-0.034) ng/mL Total Protein (6.3-8.2) g/dL Albumin (3.5-5.0) g/dL Urine Appearance (Clear) Urine Protein (Negative) Urine Blood (Negative) Urine Bilirubin (Negative) Ur Leukocyte Esterase (Negative) Urine RBC (0-5) /hpf Urine WBC (0-5) /hpf Urine WBC Clumps (None) /hpf Amorphous Sediment (None) /hpf Urine Bacteria (None) /hpf Hyaline Casts (0-2) /lpf Urine Mucus (None) /hpf Urine Yeast (Budding) (None) /hpf 07/01/19 07/01/19 07/01/19 Range/Units 10:16 13:01 15:55 WBC (3.8-10.6) k/uL Hgb (11.4-16.0) gm/dL RDW (11.5-15.5) % Neutrophils # (1.3-7.7) k/uL Monocytes # (0-1.0) k/uL PT (9.0-12.0) sec INR (<1.2) ABG pH 7.23 L (7.35-7.45) ABG pCO2 22 L (35-45) mmHg ABG pO2 (83-108) mmHg ABG HCO3 9 L* (21-25) mmol/L ABG Total CO2 10 L (19-24) mmol/L ABG O2 Saturation (94-97) % VBG pCO2 (37-51) mmHg VBG HCO3 (24-28) mmol/L Sodium (137-145) mmol/L Potassium (3.5-5.1) mmol/L Carbon Dioxide (22-30) mmol/L BUN (7-17) mg/dL Creatinine (0.52-1.04) mg/dL POC Glucose (mg/dL) 73 L (75-99) mg/dL Plasma Lactic Acid Kehinde 2.1 H* (0.7-2.0) mmol/L Calcium (8.4-10.2) mg/dL Total Bilirubin (0.2-1.3) mg/dL AST (14-36) U/L ALT (9-52) U/L Alkaline Phosphatase (38-126) U/L Creatine Kinase (30-135) U/L Troponin I (0.000-0.034) ng/mL Total Protein (6.3-8.2) g/dL Albumin (3.5-5.0) g/dL Urine Appearance (Clear) Urine Protein (Negative) Urine Blood (Negative) Urine Bilirubin (Negative) Ur Leukocyte Esterase (Negative) Urine RBC (0-5) /hpf Urine WBC (0-5) /hpf Urine WBC Clumps (None) /hpf Amorphous Sediment (None) /hpf Urine Bacteria (None) /hpf Hyaline Casts (0-2) /lpf Urine Mucus (None) /hpf Urine Yeast (Budding) (None) /hpf Microbiology - Last 24 Hours (Table) 07/01/19 01:21 Urine Culture - Preliminary Urine,Voided Assessment and Plan (1) LFT elevation Current Visit: Yes Status: Acute Priority: High Code(s): R94.5 - ABNORMAL RESULTS OF LIVER FUNCTION STUDIES SNOMED Code(s): 639832824 (2) Metastatic melanoma Current Visit: Yes Status: Chronic Priority: High Code(s): C79.9 - SECONDARY MALIGNANT NEOPLASM OF UNSPECIFIED SITE SNOMED Code(s): 685052878 Plan: Case was discussed with the Attending Physician. The critical care team and Attending are going to try to treat any reversible conditions (i.e. infection, adrenal insufficiency). If treatment of the same does not improve patient's condition that unfortunately, the most likely scenario is that pt is failing due to metastatic disease progression. This was discussed with the family. They verbalized understanding, all questions answered to their satisfaction. CODE STATUS was changed to No Code with instructions. When I talked with the family they seem very realistic and understanding how critical patient's case is. Continue care as directed by Critical Care and Internal Medicine. Family is already anticipating transition to comfort measures only.
[2019-07-01 18:39] LABS: Glucose,Whole Blood 65 mg/dL (75-99)
[2019-07-01 18:54] LABS: Glucose,Whole Blood 236 mg/dL (75-99)
[2019-07-01 20:18] VITALS: PULSE 109; RESP 27; TEMP 98.8
--- NOTE | 2019-07-03 17:57 | P.DS ---
Providers Date of admission: 07/01/19 02:22 Expected date of discharge: 07/01/19 Attending physician: Nasra Krishnan MD Consults: 07/01/19 02:22 Consult Physician Stat Consulting Provider: Elayne Romero Consult Reason/Comments: ICU Do you want consulting provider notified?: Already Contacted 07/01/19 06:16 Consult Physician Routine Consulting Provider: Marcell Morocho Consult Reason/Comments: Metastatic melanoma Do you want consulting provider notified?: Yes Primary care physician: Javad Koroma Hospital Course: Discharge Diagnosis: Patient Multiorgan failure Septic shock Probable UTI Secondary adrenal insufficency Stage IV Metastatic Melanoma BILL due to ATN Type II RI Acute Hepatitis, probable shock liver Lactic Acidosis TOxic metabolic encephalopathy Hyponatremia Hyperkalemia Severe Protein Caloria Malnutrition Acute respiratory failure-hypoxic Recent LLL PNA HTN HLT Hx of L LE DVT Hospital Course: Patient is a 74-year-old female with a past medical history of metastatic melanoma with metastases to the lungs, liver, and adrenal gland (following with Dr. Morocho for 18 months had been unable to tolerate her most recent treatments), recent left lower extremity DVT, hypertension, and dyslipidemia who presented to the emergency department secondary to lethargy and confusion. Patient had been discharged from [facility] on 06/27 after a five-day hospitalization for pneumonia and urinary tract infection. Patient was discharged home on Levaquin. Initially she had done better per family, but 2 days prior to admission she became quite weak. She presented to an outside facility and was noted to be profoundly hypotensive. She was given IV fluids and Lasix for treatment of pulmonary edema. When she arrived to the ER here she was very lethargic, hypotensive, and tachycardic. She was subsequently intubated for airway protection. She was found to have a white blood cell count 24,000, hyponatremia, hyperkalemia, HPI, and a chest x-ray showing pulmonary interstitial edema with infiltrate. She was also found to have an elevated lactic acid at 2.8 and urinalysis demonstrated large amounts of blood but no definitive infection. She was started on broad-spectrum antibiotics in the form of vancomycin and cefepime. She received a total of 4 L of IV fluids and ultimately required norepinephrine to support her blood pressure. She was placed on propofol and admitted to the ICU. She was also noted to have acute hepatitis though to be related to shock liver vs her known malignancy with mets to the liver. She was critical care. Despite max doses of levophed she was still hypotensive and anuric. She was given additional fluids, stress dose steroids, and ultimatel y vasopressin was added. She continued to be hypotension. I had a Goals of care discussion with the family. We subsequently continued aggressive care, but she was mad a DNR should her heart stop. She ultimately subbcumb to her illness on the evening of 07/01 at 2124. A total of 25 minutes of time were spent preparing this complex discharge summary . Patient Condition at Discharge: Undetermined Plan - Discharge Summary Discharge Rx Participant: No New Discharge Prescriptions: No Action Prochlorperazine [Compazine] 10 mg PO Q6H PRN PRN Reason: Nausea Sertraline [Zoloft] 100 mg PO BID Omeprazole 20 mg PO DAILY Nystatin-Triamcinolone Oint [Mycolog 100,000-0.1 Unit/gm-% Oint] 1 applic TOPICAL BID PRN PRN Reason: Skin Irritation amLODIPine BESYLATE [Norvasc] 2.5 mg PO DAILY Nortriptyline [Pamelor] 10 mg PO HS Meloxicam [Mobic] 7.5 mg PO BID Trametinib Dimethyl Sulfoxide [Mekinist] 2 mg PO DAILY Tafinlar 75mg Capsule 150 mg PO Q12H Sennosides [Senokot] 8.6 mg PO BID 30 Days #60 tab HYDROcodone/APAP 5-325MG [[place] 5-325] 1 tab PO Q4HR PRN PRN Reason: Pain Apixaban [Eliquis] 5 mg PO BID Ipratropium-Albuterol Nebulize [Duoneb 0.5 mg-3 mg/3 ml Soln] 3 ml INHALATION RT-QID #90 ampul.neb Levofloxacin [Levaquin] 750 mg PO DAILY 4 Days #4 tab Discharge Medication List Meloxicam [Mobic] 7.5 mg PO BID 06/08/19 [History] Nortriptyline [Pamelor] 10 mg PO HS 06/08/19 [History] Nystatin-Triamcinolone Oint [Mycolog 100,000-0.1 Unit/gm-% Oint] 1 applic TOPICAL BID PRN 06/08/19 [History] Omeprazole 20 mg PO DAILY 06/08/19 [History] Prochlorperazine [Compazine] 10 mg PO Q6H PRN 06/08/19 [History] Sertraline [Zoloft] 100 mg PO BID 06/08/19 [History] Tafinlar 75mg Capsule 150 mg PO Q12H 06/08/19 [History] Trametinib Dimethyl Sulfoxide [Mekinist] 2 mg PO DAILY 06/08/19 [History] amLODIPine BESYLATE [Norvasc] 2.5 mg PO DAILY 06/08/19 [History] Sennosides [Senokot] 8.6 mg PO BID 30 Days #60 tab 06/11/19 [Rx] Apixaban [Eliquis] 5 mg PO BID 06/23/19 [History] HYDROcodone/APAP 5-325MG [[place] 5-325] 1 tab PO Q4HR PRN 06/23/19 [History] Ipratropium-Albuterol Nebulize [Duoneb 0.5 mg-3 mg/3 ml Soln] 3 ml INHALATION RT-QID #90 ampul.neb 06/27/19 [Rx] Levofloxacin [Levaquin] 750 mg PO DAILY 4 Days #4 tab 06/27/19 [Rx] Follow up Appointment(s)/Referral(s): Marcell Morocho MD [STAFF PHYSICIAN] - 07/06/19 3:45 pm Javad Koroma MD [Primary Care Provider] - 1-2 days Discharge Disposition: - Preliminary Cause of Preliminary Cause of : multiorgan failure
== END 2019-07-01 22:23 | disposition expired | DRG 871 ==
LOC: EC 00:41 → 2SICU 02:22
PROVIDERS: ADMIT Internal Medicine; ATTEND Internal Medicine
PROC: 5A1935Z Respiratory Ventilation, Less than 24 Consecutive Hours (ICD-10-PCS; principal; 2019-07-01)
PROC: 0BH17EZ Insertion of Endotracheal Airway into Trachea, Via Natural or Artificial Opening (ICD-10-PCS; 2019-07-01)
PROC: 02HV33Z Insertion of Infusion Device into Superior Vena Cava, Percutaneous Approach (ICD-10-PCS; 2019-07-01)
DX: A41.9 Sepsis, unspecified organism (principal); J18.9 Pneumonia, unspecified organism; J96.01 Acute respiratory failure with hypoxia; E43 Unspecified severe protein-calorie malnutrition; G92 Toxic encephalopathy; I21.A1 Myocardial infarction type 2; K72.00 Acute and subacute hepatic failure without coma; Z66 Do not resuscitate; N17.0 Acute kidney failure with tubular necrosis; R65.21 Severe sepsis with septic shock; B17.9 Acute viral hepatitis, unspecified; C78.7 Secondary malignant neoplasm of liver and intrahepatic bile duct; E27.49 Other adrenocortical insufficiency; E87.1 Hypo-osmolality and hyponatremia; E87.2 Acidosis; N39.0 Urinary tract infection, site not specified; C78.02 Secondary malignant neoplasm of left lung; C78.01 Secondary malignant neoplasm of right lung; C79.72 Secondary malignant neoplasm of left adrenal gland; C79.71 Secondary malignant neoplasm of right adrenal gland; C43.9 Malignant melanoma of skin, unspecified; R63.0 Anorexia; Z68.32 Body mass index [BMI] 32.0-32.9, adult; Z87.01 Personal history of pneumonia (recurrent); D73.89 Other diseases of spleen; E78.5 Hyperlipidemia, unspecified; E87.5 Hyperkalemia; I10 Essential (primary) hypertension; Z86.718 Personal history of other venous thrombosis and embolism; Z79.01 Long term (current) use of anticoagulants; M06.9 Rheumatoid arthritis, unspecified; Y95 Nosocomial condition; Z79.1 Long term (current) use of non-steroidal anti-inflammatories (NSAID); Z79.899 Other long term (current) drug therapy; Z80.1 Family history of malignant neoplasm of trachea, bronchus and lung; Z80.3 Family history of malignant neoplasm of breast; Z88.0 Allergy status to penicillin; Z90.710 Acquired absence of both cervix and uterus; Z88.1 Allergy status to other antibiotic agents; Z80.0 Family history of malignant neoplasm of digestive organs; R31.9 Hematuria, unspecified; Z96.659 Presence of unspecified artificial knee joint
CPT/HCPCS: 31500; 36415; 36556; 71045; 80053; 81001; 82533; 82550; 82803; 82805; 83605; 84484; 85025; 85610; 85730; 87040; 87086; 93005; 94002; 96365; 96366; 96368; 99291